=== PATIENT | female | born 1940 | race Caucasian/White ===

== ENCOUNTER 2021-11-15 04:24 | Inpatient (IN) | payer MEDICARE, SELFPAY ==
[2021-11-15] VITALS (34 sets, daily range): BP systolic 105–149; BP diastolic 63–93; PULSE 71–88; RESP 11–28; TEMP 36.3–37.3; O2SAT 79–100
--- NOTE | ~2021-11-15 | XR_ITS ---
EXAMINATION: XR chest 1V portable DATE: 11/15/2021 05:13 INDICATION: Dyspnea. Wheezing. TECHNIQUE: A single frontal view of the chest was obtained. COMPARISON: Chest CT 11/15/2021 FINDINGS: There is a diffuse interstitial pattern in the lungs. There are mild airspace opacities in the mid and lower lung zones. Calcified left lung nodules and calcified left hilar and mediastinal ly mph nodes are consistent with old granulomatous disease. No pleural effusion or pneumothorax. Cardiom egaly is noted. There are surgical clips in right axilla. IMPRESSION: 1. Diffuse lung disease, likely a combination of mild pulmonary edema and atelectasis. 2. Cardiomegaly. Reviewed, dictated and finalized at location A. HEAT CABINET ATTENDANT IMPRESSION: 1. Diffuse lung disease, likely a combination of mild pulmonary edema and atele ctasis. 2. Cardiomegaly.
--- NOTE | ~2021-11-15 | XR_ITS ---
EXAMINATION: XR barium swallow modified EXAM DATE: 11/17/2021 14:10 INDICATION: Aspiration TECHNIQUE: Modified barium esophagram was performed by speech pathologist with radiologist Dr. Eric Marroquin present to administered fluoroscopy. Speech pathologist administered barium in varying consis tencies as per speech pathologist documentation. This was recorded on tape. There was total fluorosc opic time of 1.5 minutes The DAP for this procedure was 1.9 Gycm2. A total of 2 images sent to PAC S from the exam. FINDINGS: Oral stage: Adequate function. Pharyngeal phase: Pyriform residual. Reduced laryngeal elevation.. Laryngeal penetration: Demonstrated. Aspiration: Could not confidently visualized focal cords. Laryngeal sensitivity: Inconsistent. IMPRESSION: Penetration demonstrated, vocal cords not visualized. Please refer to speech pathologist findings and specific feeding recommendations. Reviewed, dictated and finalized at location A. SORTER
--- NOTE | ~2021-11-15 | XR_ITS ---
EXAMINATION: XR barium swallow modified DATE: 11/21/2021 10:43 INDICATION: Dysphagia. TECHNIQUE: The patient was given barium-containing material of multiple consistencies to swallow by t jorge luis speech pathologist while I performed fluoroscopy. Fluoroscopy exposure time was 3.0 minutes. The n umber of fluoroscopy images saved to the PACS was 1. Dose-area product was 2.673 Gy-cm^2. FINDINGS: There was laryngeal penetration of thin liquids via spoon and thickened liquid via straw. IMPRESSION: 1. Laryngeal penetration. 2. Please refer to the speech therapy report for recommendations. Reviewed, dictated and finalized at location A.
--- NOTE | ~2021-11-15 | XR_ITS ---
EXAMINATION: XR sniff test without CXR2V DATE: 11/20/2021 10:21 INDICATION: Right diaphragm weakness. TECHNIQUE: I performed fluoroscopy of the chest while the patient performed from respiration, deep in spiration, and forceful sniffing. The fluoroscopy exposure time was 0.5 minutes. The number of images was 863. COMPARISON: Chest single view 11/15/2021 FINDINGS: There is marked elevation of right hemidiaphragm at rest. There is decreased and delayed mo vement of right hemidiaphragm with respiration when compared to the left. No paradoxical motion. IMPRESSION: 1. Marked elevation of right hemidiaphragm with delayed and decreased movement of right hemidiaphragm when compared to the left. Reviewed, dictated and finalized at location A.
--- NOTE | ~2021-11-15 | XR_ITS ---
EXAMINATION: XR chest 1V portable DATE: 11/18/2021 05:09 INDICATION: Pneumonia. TECHNIQUE: A single frontal view of the chest was obtained. COMPARISON: Chest single view 11/16/2021 FINDINGS: Sensitivity and specificity are decreased by obesity. There is elevation of right hemidiaph ragm. There are airspace opacities in the mid and lower lung zones. No pleural effusion or pneumothor ax. Cardiomegaly is noted. There is a prominent left paracardial fat pad. There are surgical clips in right axilla. IMPRESSION: 1. Airspace opacities in the mid and lower lung zones with worsening on the left, consistent with ate lectasis versus pneumonia. 2. Cardiomegaly. Reviewed, dictated and finalized at location A. TECHNICIAN IMPRESSION: 1. Airspace opacities in the mid and lower lung zones with worsening on the lef t, consistent with atelectasis versus pneumonia. 2. Cardiomegaly.
--- NOTE | ~2021-11-15 | XR_ITS ---
EXAMINATION: XR chest 2V DATE: 11/22/2021 13:38 INDICATION: Congestive heart failure. Shortness of breath. TECHNIQUE: Frontal and lateral views of the chest were obtained. COMPARISON: Chest single view 11/18/2021, CT abdomen and pelvis 11/16/2021 FINDINGS: There is mild atelectasis at left lung base. No pleural effusion or pneumothorax. Cardiomeg pedro is noted. There are surgical clips in right axilla. IMPRESSION: 1. Mild atelectasis at left lung base. 2. Cardiomegaly. Reviewed, dictated and finalized at location A.
--- NOTE | ~2021-11-15 | CT_ITS ---
EXAMINATION: CT brain wo con INDICATION: Seizure COMPARISON: 11/15/2021 TECHNIQUE: Standard unenhanced head CT. The dose-length product (DLP) was 605.33 mGy-cm. The mA was a djusted according to patient size. Iterative reconstruction technique was employed. FINDINGS: There is no acute intraparenchymal hemorrhage. No evidence of mass lesion. No evidence of a cute infarction. There is chronic encephalomalacia in the frontal lobes, right greater than left. The re is mild periventricular and subcortical hypodensity probably related to small vessel ischemic dise ase. There is mild prominence of the sulci and ventricles related to cerebral atrophy. Intracranial c alcified cerebral atherosclerosis is noted. There are no extra-axial collections. There is no mass ef fect or midline shift. Changes in the globes are likely from ocular lens surgery. The visualized sinu ses and mastoid air cells are well aerated. Changes of suboccipital craniotomy are again noted. IMPRESSION: 1. No acute intracranial abnormality. 2. Age related findings. 3. Unchanged chronic encephalomalacia of the frontal lobes. Reviewed, dictated and finalized at location B. NT FINISHER
--- NOTE | ~2021-11-15 | CT_ITS ---
EXAMINATION: CTA chest PE protocol DATE: 11/15/2021 05:59 INDICATION: COVID-19 pneumonia. TECHNIQUE: Computed tomography angiography (CTA) of the chest was performed with 100 mL Omnipaque-350 intravenous contrast timed to evaluate the pulmonary arteries. Coronal maximum intensity projection 3D-reconstructions were created by the technologist. Automated exposure control and iterative reconst ruction technique were employed. The dose-length product was 898.57 mGy-cm. COMPARISON: None. FINDINGS: The lung volumes are small. There is a diffuse interstitial pattern in the lungs. There are airspace opacities involving all lobes with a posterior predominance with volume loss. There is muco us plugging in right lower lobe. Calcified left lung nodules and calcified left hilar and mediastinal lymph nodes are consistent with old granulomatous disease. There are small pleural effusions. Cardio megaly is noted. There are coronary artery calcifications. No pericardial effusion. There is no pulmo nary embolus. There is enlargement of the central pulmonary arteries, consistent with pulmonary arter ial hypertension. Calcifications in the spleen are consistent with old granulomatous disease. There i s severe thoracic spondylosis. IMPRESSION: 1. No pulmonary embolus. 2. Diffuse lung disease, likely a combination of mild pulmonary edema and atelectasis. 3. Small pleural effusions. 4. Cardiomegaly. Reviewed, dictated and finalized at location A. UNTING CONSULTANT IMPRESSION: 1. No pulmonary embolus. 2. Diffuse lung disease, likely a combination of mild pulmonary edema and atele ctasis. 3. Small pleural effusions. 4. Cardiomegaly.
--- NOTE | ~2021-11-15 | XR_ITS ---
EXAMINATION: XR chest 1V portable DATE: 11/16/2021 05:27 INDICATION: Hypercapnic respiratory failure. TECHNIQUE: A single frontal view of the chest was obtained. COMPARISON: Chest single view 11/15/2021, chest CT 11/15/2021 FINDINGS: There is mild atelectasis in the lower lung zones. A calcified left lung nodule and calcifi ed left hilar lymph nodes are consistent with old granulomatous disease. There is a diffuse interstit ial pattern, consistent with mild pulmonary edema. No pleural effusion or pneumothorax. Cardiomegaly is noted. There are surgical clips in right axilla. IMPRESSION: 1. Mild pulmonary edema. 2. Mild atelectasis in the lower lung zones. 3. Cardiomegaly. Reviewed, dictated and finalized at location A. ANICAL ARTIST
--- NOTE | ~2021-11-15 | CT_ITS ---
EXAMINATION: CT abdomen pelvis wo con DATE: 11/16/2021 08:59 INDICATION: Abdominal pain TECHNIQUE: Computed tomography (CT) of the abdomen and pelvis was performed without intravenous contr ast. The dose-length product (DLP) was 1461.82 mGy-cm. Automated exposure control and iterative recon struction technique were employed. COMPARISON: None FINDINGS: There are small pleural effusions. Cardiomegaly is noted. There is dependent atelectasis of the visualized lung bases. Punctate calcifications in an otherwise normal spleen likely represent he aled granulomatous disease. Surgical changes are noted in the lateral aspect of the right breast. A c alcified left breast mass likely represents a fibroadenoma. The liver, pancreas, and adrenal glands a re normal. There is excreted contrast in the nondistended gallbladder. A small amount of contrast fro m yesterday's PE protocol examination is seen in the urinary tract. The bladder is decompressed by Fo jennifer catheter. There is a 2.5 cm cyst of the left kidney. The right kidney is unremarkable. There is c alcified atherosclerosis of the aorta and many of the other arteries. Colonic diverticulosis is noted . There is subtle fat stranding adjacent to the sigmoid colon. A fat-containing umbilical hernia is n oted. The uterus is enlarged containing multiple calcified fibroids. There is severe lower thoracic a nd lumbar spondylosis. IMPRESSION: 1. Diverticulosis with possible mild sigmoid diverticulitis. 2. Small pleural effusions with atelectasis in the lower lobes. 3. Cardiomegaly. Reviewed, dictated and finalized at location B. RIOR DESIGN FACULTY MEMBER
--- NOTE | ~2021-11-15 | US_ITS ---
EXAMINATION: US venous doppler [facility] DATE: 11/16/2021 14:45 INDICATION: Left lower abdominal pain. TECHNIQUE: Grayscale ultrasound images without and with compression and Doppler ultrasound images of the bilateral lower extremity veins were obtained. COMPARISON: None. FINDINGS: The visualized portions of right common femoral vein, profunda (deep) femoral vein, femoral vein, pop liteal vein, peroneal veins, posterior tibial veins, and greater saphenous vein outflow are patent. The visualized portions of left common femoral vein, profunda femoral vein, femoral vein, popliteal v ein, peroneal veins, posterior tibial veins, and greater saphenous vein outflow are patent. IMPRESSION: 1. No deep venous thrombosis. Reviewed, dictated and finalized at location A. AR REPAIRER
--- NOTE | ~2021-11-15 | CT_ITS ---
EXAMINATION: CT brain wo con DATE: 11/15/2021 05:59 INDICATION: Confusion. TECHNIQUE: Computed tomography (CT) of the head was performed without intravenous contrast. The mA wa s adjusted according to patient size. Iterative reconstruction technique was employed. The dose-lengt h product was 681.00 mGy-cm. COMPARISON: None FINDINGS: There is chronic encephalomalacia in the frontal lobes, right worse than left. There are sc attered areas of low attenuation in the cerebral white matter. There is no intracranial hemorrhage, a cute infarction, or abnormal intracranial mass lesion. The ventricles are normal in size. There are l ikely changes of ocular lens replacement surgeries. There are changes of suboccipital craniotomy. The mastoid air cells are normal. There is mild mucosal thickening in the paranasal sinuses. IMPRESSION: 1. Chronic encephalomalacia in the frontal lobes, right worse than left. 2. Moderate nonspecific cerebral white matter disease, which likely represents chronic small vessel i schemic disease. Reviewed, dictated and finalized at location A. RN AND CONTEMPORARY ART CURATOR IMPRESSION: 1. Chronic encephalomalacia in the frontal lobes, right worse than left. 2. Moderate nonspecific cerebral white matter disease, which likely represents chronic small vessel ischemic disease.
--- NOTE | 2021-11-15 04:30 | ECG_ITS ---
Measurements Intervals [place] Rate: 83 P: 9 OR: 185 QRS: 40 QRSD: 86 T: 28 QT: 345 QTc: 407 Interpretive Statements SINUS RHYTHM LOW QRS VOLTAGE IN PRECORDIAL LEADS [QRS DEFLECTION < 1.0 mV IN CHEST LEADS] BORDERLINE ECG NO PREVIOUS ECG AVAILABLE FOR COMPARISON Electronically Signed On 11-15-2021 13:16:11 WASH BARREL LEADER by Lj Donovan M.D.
--- NOTE | 2021-11-15 04:33 | ED.SOB ---
HPI - SOB/Dyspnea General Chief Complaint: Shortness of Breath/Dyspnea Stated Complaint: diff breathing, gen weakness, glf 80% RA Source: patient, EMS and RN notes reviewed Mode of arrival: EMS Limitations: no limitations History of Present Illness HPI Narrative: This is a 81 year old female with history of COPD, hypertension, hyperlipidemia who presents from [facility] for evaluation of shortness of breath. EMS reports patient was too weak to get out bed tonight, and she slid out of her bed onto floor. Patient denies hitting her head or headache or LOC. Patient was found by staff having difficulty breathing, and her oxygen saturation was 72 % on room air by staff. PAtient was placed on 3 L NC and given solumedrol 125 mg with albuterol neb treatment. Patient states she has been having trouble breathing for while and she has cough productive with clear phlegm. Patient denies fever, nausea, vomiting, chest pain or abdominal pain. It has been reported that patient was diagnosed with COVID1 month ago. Related Data Home Medications Medication Instructions Recorded Confirmed Fleet Enema 1 applic DAILY PRN 11/15/21 11/15/21 acetaminophen 500 mg PO Q8H PRN 11/15/21 11/15/21 amlodipine 5 mg PO DAILY 11/15/21 11/15/21 aspirin [Adult Aspirin EC Low 81 mg PO DAILY 11/15/21 11/15/21 Strength] atorvastatin [Lipitor] 10 mg PO HS 11/15/21 11/15/21 bisacodyl 10 mg RECTAL DAILY PRN 11/15/21 11/15/21 calcium carbonate-vitamin D3 1 tablet PO DAILY 11/15/21 11/15/21 cholecalciferol (vitamin D3) 5,000 unit PO DAILY 11/15/21 11/15/21 levothyroxine 150 mcg PO DAILY 11/15/21 11/15/21 lisinopril 10 mg PO DAILY 11/15/21 11/15/21 magnesium hydroxide [Milk of 30 ml PO HS PRN 11/15/21 11/15/21 Magnesia] metoprolol succinate 50 mg PO DAILY 11/15/21 11/15/21 mirabegron [Myrbetriq] 25 mg PO DAILY 11/15/21 11/15/21 polyethylene glycol 17 g PO DAILY 11/15/21 11/15/21 saliva substitute combo no.9 15 ml MUCOUS MEMBRANE QID 11/15/21 11/15/21 [Biotene Dry Mouth Oral Rinse] tamsulosin [Flomax] 0.4 mg PO DAILY 11/15/21 11/15/21 Allergies Allergy/AdvReac Type Severity Reaction Status Date / Time codeine Allergy Unknown Verified 11/15/21 14:46 Review of Systems Review of Systems: All systems reviewed & are unremarkable except as noted in HPI and below PMFSH Past Medical History Medical History (Updated 11/15/21 @ 10:30 by Brendan Barnett MD) Breast cancer Right breast Dysphagia Emphysema/COPD GERD (gastroesophageal reflux disease) History of CVA (cerebrovascular accident) 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 She states she is lifelong nonsmoker. . DNR status. Aaron Hernandez, son, listed as Emergency Contact . Dr Salmon listed as the PCP. Smoking status: Unknown if ever smoked Alcohol intake: unknown Substance use: unknown Spiritual care concerns: No Exam Const: General: alert Other: oriented to person and age Eyes: EOM: EOMs intact bilaterally Chest: Chest palpation & inspection: normal inspection of the chest Resp: Effort & Inspection: tachypneic Auscultation: wheezes (Diffuse ex) expiratory wheezes Cardio: Rate: regular rate Rhythm: regular rhythm Heart sounds: no murmurs GI: GI Palp: Yes Soft to palpation, No Tenderness to palpation present (GI) and No Guarding due to palpation present (GI) Auscultation: normal bowel sounds Skin: General skin exam: normal color N
[2021-11-15 04:41] LABS: Basophils Percent Auto 0.3 % (0.2-1.2); Eosinophils Absolute Auto 0.2 K/mm3 (0-0.3); Eosinophils Percent Auto 1.7 % (0-4.4); Hematocrit 32.9 % (37.0-47.0); Hemoglobin 9.2 g/dL (12.0-15.0); Immature Granulocyte Absolute 0.08 K/mm3 (0.00-0.031); Immature Granulocyte Percent A 0.9 % (0-0.5); Lymphocytes Absolute Auto 1.03 K/mm3 (0.9-3.2); Mean Corpuscular Hemoglobin 26.1 pg (26-34); Mean Corpuscular Volume 93.2 fl (80-100); Mean Platelet Volume 8.3 fl (7.4-10.4); Monocytes Absolute Auto 1.2 K/mm3 (0.1-0.6); Monocytes Percent Auto 14.1 % (2.6-8.5); Neutrophils Absolute Auto 6.1 K/mm3 (1.3-6.7); Nucleated Red Blood Cells Perc 0.2 % (0.0-0.2); Platelet Count Result 458 k/mm3 (150-375); Red Blood Count 3.53 M/mm3 (4.2-5.4); Red Cell Distribution Width 19.9 % (11.5-14.5); White Blood Count 8.6 K/mm3 (4.5-10.0)
[2021-11-15] MEDS: IPRATROPIUM BR 0.02% INH SOLN 0.5 MG/2.5 ML VIAL 1 MG INHALATION (04:51)
[2021-11-15] MEDS: ALBUTEROL SULFATE NEB 2.5 MG/0.5 ML INH 10 MG INHALATION (04:51)
[2021-11-15 04:53] LABS: Alanine Aminotransferase 8 U/L (4-35); Albumin Level 3.6 g/dL (3.5-5.1); Alkaline Phosphatase 85 U/L (38-126); Anion Gap 1 mmol/L (8-16); Aspartate Amino Transferase 19 U/L (14-36); Bilirubin,Total 0.3 mg/dL (0.2-1.3); Blood Urea Nitrogen 14 mg/dL (7-17); Carbon Dioxide 36 mmol/L (22-30); Chloride 99 mmol/L (98-107); Estimated CRCL calculation 69 ml/min; Estimated Glomerular Filt Rate > 60; Glucose 102 mg/dL (65-110); Potassium 4.8 mmol/L (3.4-5.0); Sodium 136 mmol/L (137-145)
[2021-11-15 05:02] LABS: Partial Thromboplastin Time 39.2 SECONDS (22.3-36.8)
[2021-11-15 05:04] LABS: NT Pro B Type Natriuretic Pept 559 pg/mL (5-100); Troponin I < 0.012 ng/mL (0.000-0.034)
[2021-11-15 05:05] LABS: Prothrombin Time 12.7 Seconds (11.1-14.7)
[2021-11-15 05:06] LABS: Alveolar/Arterial O2 Gradient 76.4 mmHg; Base Excess ABG 3.1 mEq/l (+/-2.0); Fractional Inspired Oxygen 36 %; HCO3 ABG 31.7 mEq/l (22.0-26.0); Oxygen Content ABG 13.6 %vol (16.0-22.0); Oxygen Saturation ABG 95.8 % (95.0-100.0); PO2 FiO2 Ratio Arterial Blood 2.64 %; Total Hemoglobin 10.2 g/dL (12.0-18.0)
[2021-11-15 05:08] LABS: pH ABG 7.253 (7.350-7.450)
[2021-11-15 05:09] LABS: Device NASAL CANNULA; Modified Allen's Test Pass; PCO2 ABG 73.5 mmHg (35.0-45.0); Site Drawn LEFT RADIAL
--- NOTE | 2021-11-15 05:52 | PC.NURSE ---
Patient returned safely from CT at this time with RN, RT and technical solution architect. Pt stable on BIPAP.
[2021-11-15 06:14] LABS: Add Urine Microscopic? YES; Appearance Urine Clear (Clear); Bilirubin Urine Negative (Negative); Blood Urine Negative (Negative); Color Urine Yellow (Yellow); Glucose Urine UA Negative (Negative); Ketones Urine Negative (Negative); Leukocyte Esterase Ur Negative LEU/UL (Negative); Mucus Urine Rare /lpf; Nitrate Urine Negative (Negative); Protein Urine Negative (Negative); Specific Grav Ur 1.017 (1.001-1.035); Urobilinogen Urine Negative mg/dL (<2.0); WBC Urine 0-3 /hpf
[2021-11-15] MEDS: FUROSEMIDE INJ 40 MG/4 ML VIAL IV PUSH (07:00)
[2021-11-15 07:33] LABS: Alveolar/Arterial O2 Gradient 138.9 mmHg; Base Excess ABG 0.9 mEq/l (+/-2.0); Carboxyhemoglobin 1.2 % THb (0-2.0); Fractional Inspired Oxygen 40 %; HCO3 ABG 29.3 mEq/l (22.0-26.0); Methemoglobin ABG 0.3 %THb (0-1.5); Oxygen Content ABG 12.8 %vol (16.0-22.0); Oxygen Saturation ABG 89.1 % (95.0-100.0); PO2 ABG 66.5 mmHg (80.0-100.0); PO2 FiO2 Ratio Arterial Blood 1.66 %; Reduced Hemoglobin 10.7 %THb (0-5.0); Total Hemoglobin 10.3 g/dL (12.0-18.0)
[2021-11-15 07:34] LABS: pH ABG 7.244 (7.350-7.450)
[2021-11-15 07:35] LABS: Device BIPAP; Modified Allen's Test Pass; Oxyhemoglobin 87.8 % THb (90.0-100.0); PCO2 ABG 69.4 mmHg (35.0-45.0); Site Drawn LEFT RADIAL
[2021-11-15 07:36] LABS: Expiratory Pressure 8 cmH2O; Inspiratory Pressure 16 cmH2O
--- NOTE | 2021-11-15 08:00 | PC.NURSE ---
pt woke up from nap stating she cant be on bipap anymore. states it hurts her abdomen. pts sats dropped to 79% rapidly. placed 6 liters nc. upon talking to pt and informing of risks pt confirms that she does not want intubation. agreeable to be placed back on bipap.
[2021-11-15] MEDS: ALBUTEROL SULFATE NEB 2.5 MG/0.5 ML INH 5 MG INHALATION (08:33)
[2021-11-15] MEDS: IPRATROPIUM BR 0.02% INH SOLN 0.5 MG/2.5 ML VIAL INHALATION ×5 (08:34→23:50)
--- NOTE | 2021-11-15 09:00 | ADMGEN ---
This patient, Brenda Rocha, was admitted to Intensive Care Unit-5. Patient/family oriented to hospital policies and general routines including ID bracelet, bed and alarms, visiting hours, pain management, procedures, bathroom and other care routines, personal items, smoking policy, room service/diet, and visiting hours. Information on how to activate the Rapid Response Team has been discussed. Patient/Family are encouraged to report perceived risks to care and to ask questions if they do not understand what they are told or what they should do.
[2021-11-15] MEDS: methylPREDNISolone SOD SUCC 125 MG VIAL IV PUSH (09:18)
--- NOTE | 2021-11-15 09:19 | WPDCNINT ---
Assessment and Plan Assessment and plan (1) Acute respiratory failure with hypoxia and hypercapnia: Code(s): J96.01 - Acute respiratory failure with hypoxia; J96.02 - Acute respiratory failure with hypercapnia Status: Acute Assessment and Plan: Likely related to pulmonary edema, COPD, CHF -patient received Lasix 40 mg IV x1 in the ER and has had adequate urine output -has been started on Solu-Medrol for COPD exacerbation given hyper gap new on her ABGs -was started on antibiotics with vancomycin and cefepime 11/14/21). Blood cultures have been sent- 11/14: -increased BiPAP settings to 20/8, 40% FiO2. Patient is getting adequate tidal volumes, continue patient on BiPAP for now. Will repeat ABGs at noon -Chest x-ray shows diffuse lung disease likely combination of mild pulmonary edema and atelectasis, cardiomegaly. CTA chest PE protocol: No pulmonary embolism, diffuse lung disease likely combination of mild pulmonary edema and atelectasis, small pleural effusions, cardiomegaly. (2) Acute exacerbation of chronic obstructive airways disease: Code(s): J44.1 - Chronic obstructive pulmonary disease with (acute) exacerbation Status: Acute Assessment and Plan: Continue bronchodilators, will add Pulmicort -continue Solu-Medrol -continue BiPAP - Pulmonology has been consulted - monitor ABGs and mental status (3) Pulmonary edema: Code(s): J81.1 - Chronic pulmonary edema Status: Acute Assessment and Plan: pro BNP 559, Lasix was given (4) Anemia: Code(s): D64.9 - Anemia, unspecified Status: Acute Assessment and Plan: Will continue to monitor Hb (5) Hypothyroidism: Code(s): E03.9 - Hypothyroidism, unspecified Status: Acute Assessment and Plan: continue levothyroxine (6) DVT prophylaxis: Code(s): Z29.9 - Encounter for prophylactic measures, unspecified Status: Acute Assessment and Plan: Lovenox SQ Additional Plan Stress ulcer prophylaxis: Protonix IV Nutrition: NPO for now, will have speech therapy evaluate patient for bedside swallow test before she can eat as she does have a history of dysphagia Code status:DNR Critical care time spent: 48 minutes This dictation may have been done utilizing a voice recognition system. Attempts have been made to correct errors. However, there may be uncorrected grammatical, spelling, and recognition errors present. Due to a high probability of clinically significant, life threatening deterioration, the patient required my highest level of preparedness to intervene emergently and I personally spent this critical care time directly and personally managing the patient. This critical care time included obtaining a history; examining the patient; pulse oximetry; ordering and review of studies; arranging urgent treatment with development of a management plan; evaluation of patient's response to treatment; frequent reassessment; and discussions with other providers. It was exclusive of separately billable procedures and treating other patients and teaching time. Please see Assessment and Plan section and the rest of the note for further information on patient assessment and treatment Paper Slitter Consult Note Consult date: 11/15/21 Time Seen: 08:58 Reason for consult: Respiratory failure, COPD exacerbation HPI: Brenda Rocha is a 81 year old female past history of COPD, emphysema, gastroesophageal reflux disease, hypertension, hyperlipidemia, was tested positive for COVID in September 2021 but was not admitted to the hospital, has received COVID vaccine x2, patient does not use any oxygen at the long term. Patient presented the ED on 11/15/2021 with complains of weakness, shortness of breath, hypoxia. According the records she was too weak to get out of the bed and slid out of her bed onto the floor. Denies any LOC or hitting her head on the floor. Patient was found by the staff having difficulty breathin
[2021-11-15] MEDS: BUDESONIDE RESPULE NEB 0.5 MG/2 ML AMP INHALATION ×2 (09:38→20:03)
--- NOTE | 2021-11-15 09:42 | PM.IMHP ---
H&P: HPI History of Present Illness Date/Time: 11/15/21 09:42 Chief Complaint: Shortness of breath Narrative: 81yo female with COPD and HTN who is brought in from the longterm to the ED for shortness of breath and found to have respiratory failure. She resides at [facility]. She states she does not remember much prior to coming to the hospital. History overall is very difficult to obtain. She provides mostly scotty, one-word answers. She denies cough. She does state that she had a recent diagnosis of COVID but could not tell me when. She does state that she has been vaccinated against COVID with a booster but could not remember her last vaccine. She has a recent chest pain or shortness of breath. She does mention that she has had pedal edema for years and may have increased over the past few weeks. She does mention that she has a history of stroke and CHF. However majority of the history is obtained from the chart. Per EMS notes patient felt well the day prior to admission until she awoke around 1AM on the day of admission. At that time, she tried to get up to void but was unable to get out of bed and slid to the floor. She was short of breath. No head injury or LOC. Staff was called and patient was noted to have SpO2 in the 80s. Oxygen was placed and EMS was contacted. On EMS evaluation, patient was noted to have labored breathing. Vital signs were stable otherwise. She was noted to be wheezing. Albuterol was given as well as Solu-Medrol. She had symptomatic improvement. Patient was brought to the ED for evaluation. In the ED respiratory was 26 SpO2 was 79. Troponins negative. BNP was 560. ABG showed 7.25/74/95 on 4 L. BiPAP was started. She was anemic with a hemoglobin of 9.2. CT of the brain showed chronic encephalomalacia in the frontal lobes right worse than left but no acute findings. Chest x-ray showed diffuse lung disease like a combination of edema and atelectasis. CTA of the chest showed no PE but did show again diffuse lung disease consistent with edema and atelectasis. Patient was treated with nebulizer treatments, IV Lasix, steroids and broad-spectrum antibiotics. She was admitted to ICU for further care. Repeat blood gas shows no significant change so BiPAP settings adjusted. 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 She states she is lifelong nonsmoker. . DNR status. Aaron Hernandez, son, listed as Emergency Contact . Dr Salmon listed as the PCP. Smoking status: Unknown if ever smoked Alcohol intake: unknown Substance use: unknown Spiritual care concerns: No Meds Home Medications and Allergies Home Medications Medication Instructions Recorded Confirmed Type Fleet Enema 1 applic DAILY PRN 11/15/21 11/15/21 History acetaminophen 500 mg PO Q8H PRN 11/15/21 11/15/21 History amlodipine 5 mg PO DAILY 11/15/21 11/15/21 History aspirin [Adult Aspirin EC Low 81 mg PO DAILY 11/15/21 11/15/21 History Strength] atorvastatin [Lipitor] 10 mg PO HS 11/15/21 11/15/21 History bisacodyl 10 mg RECTAL DAILY PRN 11/15/21 11/15/21 History oswaldo
--- NOTE | 2021-11-15 12:13 | PM.CNPUL ---
Assessment and Plan Assessment and plan (1) Acute respiratory failure with hypoxia and hypercapnia: Code(s): J96.01 - Acute respiratory failure with hypoxia; J96.02 - Acute respiratory failure with hypercapnia Status: Acute Assessment and Plan: Patient carries a diagnosis of congestive heart failure, COPD and she is a former tobacco user at 49 pack years quit 10 years ago with no bullous emphysema on her CT angiogram of the chest this admission, and is currently being treated for pneumonia, COPD exacerbation and fluid overload. Her COVID tested influenza swab are pending. Blood and urine cultures are pending. Rregarding her fluid overload patient is given Lasix 40 mg IV and will monitor her ins and outs. Echocardiogram has been ordered Regarding her COPD exacerbation patient is on Solu-Medrol 60 q.6, albuterol 2.5 mg nebs q.4 hours, ipratropium 0.5 mg nebs q.4 hours and BiPAP 30/04 (managed by directory carrier). A repeat blood gas on the settings is pending. There is some evidence of acute on chronic hypercarbic respiratory failure with her 1st blood gas being 7.25/74 with a serum bicarbonate of 36. Of note she had a serum bicarbonate on 08/31/2021 which was 30. She has no eosinophilia. I will reassess her for chronic hypercarbic respiratory failure after she is treated for fluid overload, COPD exacerbation and pneumonia. She may require nocturnal noninvasive ventilation. Regarding pneumonia patient is on vancomycin and cefepime which were started on 11/15. discussed with Dr. Altamirano will follow with you. History of Present Illness History of Present Illness Consult date: 11/15/21 Requesting physician: Shane Altamirano MD Reason for consult: COPD Chief complaint: Acute respiratory failure w hypoxia and hypercapne Narrative: 11/15/2021: This is a new pulmonary consult for COPD exacerbation. 81-year-old with a history of hypertension, hyperlipidemia, CVA, congestive heart failure, COPD who quit smoking 10 years ago and is not on any COPD medicines presented to the emergency department at [facility] on 3 9 after she was weak and slid out of her bed at [facility]. Patient was found to be hypoxemic with low saturations and brought to the emergency department. Patient is currently on BiPAP and is difficult to get an accurate history given the BiPAP in her mental status. The note states that she was in her usual state of health without any respiratory issues. To me she does say she did not have fever, cough, chills, rigors, change in phlegm production or hemoptysis. In the emergency department she was found to have a white blood cell ount of 8.6, esinophis 1.7% equals 146 per micro L, creatinine 0.7, BNP was 559, ABG 7.25/ 74/95 on 4 L nasal cannula, serum bicarbonate 36. Of note serum bicarbonate was 30 on 08/31/2021 with a white blood cell count of 6.6 and eosinophils 2.7% equal 178 per micro L. patient had a CT angiogram of the chest that demonstrated no pulmonary embolism, diffuse lung disease with congestion and small pleural effusions, cardiomegaly. Patient was treated for COPD exacerbation, healthcare associated pneumonia and fluid overload with BiPAP, Solu-Medrol, bronchodilators, vancomycin and cefepime, and IV Lasix. repeat blood gas on BiPAP 24/04 was 7.24/70/67. Patient did states she smokes cigarettes from age 22-10 years ago at 1 pack per day for 49 pack years. 11/15/2021: Patient is currently in the ICU on BiPAP rate of 10, breathing 18, pressures 22/8 and 40% FiO2 with tidal volume 470 and saturations 99%. Patient is awake and following some simple commands for example she shows me 2 fingers with her right hand but when I asked her to show me 2 fingers on the left hand she raises up 3 fingers. She does wiggle her toes. She denies any current pain. DATA: EXAMINATION: CTA chest PE protocol DATE: 11/15/2021 05:59 INDICATION: COVID-19 pneumonia. TE
[2021-11-15 13:17] LABS: Base Excess ABG 2.6 mEq/l (+/-2.0); Fractional Inspired Oxygen 40 %; HCO3 ABG 29.9 mEq/l (22.0-26.0); Oxygen Content ABG 14.7 %vol (16.0-22.0); Oxygen Saturation ABG 98.8 % (95.0-100.0); Oxyhemoglobin 97.2 % THb (90.0-100.0); PO2 ABG 157.1 mmHg (80.0-100.0); PO2 FiO2 Ratio Arterial Blood 3.93 %; Total Hemoglobin 10.5 g/dL (12.0-18.0); pH ABG 7.308 (7.350-7.450)
[2021-11-15 13:19] LABS: Device BIPAP; Modified Allen's Test Pass; Site Drawn LEFT RADIAL
[2021-11-15 13:20] LABS: Expiratory Pressure 8 cmH2O; Inspiratory Pressure 22 cmH2O
[2021-11-15] MEDS: ALBUTEROL SULFATE NEB 2.5 MG/0.5 ML INH INHALATION ×4 (13:27→23:50)
[2021-11-15 14:34] LABS: Influenza A QL RT-PCR Negative (Negative); Influenza B QL RT-PCR Negative (Negative); SARS-CoV-2 RNA PCR Negative
[2021-11-15] MEDS: methylPREDNISolone SOD SUCC 125 MG VIAL 60 MG IV PUSH ×3 (14:49→23:47)
[2021-11-15 17:08] LABS: Glucose Point of Care 170 mg/dl (65-105)
[2021-11-16] VITALS (28 sets, daily range): BP systolic 89–119; BP diastolic 56–75; PULSE 78–138; RESP 10–30; TEMP 36.3–37.1; O2SAT 95–100
[2021-11-16 00:02] LABS: Glucose Point of Care 144 mg/dl (65-105)
--- NOTE | 2021-11-16 03:03 | ECG_ITS ---
Measurements Intervals [place] Rate: 128 P: NV: 0 QRS: 63 QRSD: 91 T: -9 QT: 306 QTc: 447 Interpretive Statements ATRIAL FIBRILLATION WITH RAPID VENTRICULAR RESPONSE LOW QRS VOLTAGE IN PRECORDIAL LEADS [QRS DEFLECTION < 1.0 mV IN CHEST LEADS] BASELINE ARTIFACT IN V6 ABNORMAL ECG COMPARED TO ECG 11/15/2021 04:32:14 ATRIAL FIBRILLATION NOW PRESENT Electronically Signed On 11-16-2021 13:58:14 HARNESS MENDER by Lj Donovan M.D.
--- NOTE | 2021-11-16 03:09 | PC.NURSE ---
Patient noted to be shaking in her bed via the camera and artifact on the monitor. I went to the patients room and she was jerking her right arm and leg in the bed and was unresponsive. We turned her oxygen to 100% and the seizure lasted 1 minute and the patient went into a-fib RVR. We got an EKG per Dr. William and will start Keppra IV. We will continue to monitor pt closely.
[2021-11-16] MEDS: levETIRAcetam 1000MG/NACL100ML 1,000 MG/100 ML BAG 400 MG IVPB (03:16)
[2021-11-16] MEDS: IPRATROPIUM BR 0.02% INH SOLN 0.5 MG/2.5 ML VIAL INHALATION ×4 (03:45→20:51)
[2021-11-16] MEDS: ALBUTEROL SULFATE NEB 2.5 MG/0.5 ML INH INHALATION ×3 (03:45→12:53)
[2021-11-16 04:15] LABS: Basophils Percent Auto 0.4 % (0.2-1.2); Hematocrit 38.6 % (37.0-47.0); Hemoglobin 10.6 g/dL (12.0-15.0); Immature Granulocyte Absolute 0.54 K/mm3 (0.00-0.031); Immature Granulocyte Percent A 4.9 % (0-0.5); Lymphocytes Absolute Auto 0.54 K/mm3 (0.9-3.2); Lymphocytes Percent Auto 4.9 % (18.3-44.2); Mean Corpuscular HGB Conc 27.5 g/dl (32-36); Mean Corpuscular Hemoglobin 26.6 pg (26-34); Mean Corpuscular Volume 96.7 fl (80-100); Mean Platelet Volume 8.1 fl (7.4-10.4); Monocytes Absolute Auto 0.4 K/mm3 (0.1-0.6); Monocytes Percent Auto 3.7 % (2.6-8.5); Neutrophils Absolute Auto 9.4 K/mm3 (1.3-6.7); Neutrophils Percent Auto 86.1 % (45.5-73.1); Platelet Count Result 513 k/mm3 (150-375); Red Blood Count 3.99 M/mm3 (4.2-5.4); Red Cell Distribution Width 19.4 % (11.5-14.5); White Blood Count 10.9 K/mm3 (4.5-10.0)
[2021-11-16 04:26] LABS: Alanine Aminotransferase 10 U/L (4-35); Albumin Level 3.8 g/dL (3.5-5.1); Alkaline Phosphatase 84 U/L (38-126); Anion Gap 4 mmol/L (8-16); Aspartate Amino Transferase 17 U/L (14-36); Bilirubin,Total 0.2 mg/dL (0.2-1.3); Blood Urea Nitrogen 17 mg/dL (7-17); Calcium 8.1 mg/dL (8.4-10.2); Carbon Dioxide 35 mmol/L (22-30); Chloride 100 mmol/L (98-107); Estimated CRCL calculation 80 ml/min; Estimated Glomerular Filt Rate > 60; Glucose 201 mg/dL (65-110); Magnesium 2.3 mg/dL (1.6-2.3); Phosphorus 6.4 mg/dL (2.5-4.5); Sodium 139 mmol/L (137-145)
[2021-11-16 04:50] LABS: Base Excess ABG 0.9 mEq/l (+/-2.0); Carboxyhemoglobin 0.8 % THb (0-2.0); Fractional Inspired Oxygen 40 %; HCO3 ABG 31.7 mEq/l (22.0-26.0); Oxygen Content ABG 14.5 %vol (16.0-22.0); Oxygen Saturation ABG 91.9 % (95.0-100.0); Oxyhemoglobin 93.1 % THb (90.0-100.0); PO2 ABG 82.4 mmHg (80.0-100.0); PO2 FiO2 Ratio Arterial Blood 2.06 %; Reduced Hemoglobin 6.1 %THb (0-5.0)
[2021-11-16 04:52] LABS: PCO2 ABG 92.9 mmHg (35.0-45.0); pH ABG 7.151 (7.350-7.450)
[2021-11-16 04:53] LABS: Device NON-INVASIVE VENT; Modified Allen's Test Pass; Non-Invasive Vent Rate 10 /MIN; Site Drawn RIGHT RADIAL
[2021-11-16 04:54] LABS: Non-Invasive Expiratory Pressure 8 CMH2O; Non-Invasive Inspiratory Pressure 22 CMH2O
[2021-11-16 05:14] LABS: Iron 23 ug/dL (37-170)
[2021-11-16 05:24] LABS: Percent Iron Saturation 9 % (20-50)
[2021-11-16 05:31] LABS: Folic Acid 10.4 ng/mL (2.76->20)
[2021-11-16] MEDS: methylPREDNISolone SOD SUCC 125 MG VIAL 60 MG IV PUSH (05:39)
--- NOTE | 2021-11-16 06:00 | ECHO_ITS ---
Patient Info Name: Brenda Rocha Age: 81 years : 1940 Gender: Female Ht: 67 in Wt: 227 lbs BSA: 2.25 m2 HR: 108 bpm BP: 101 / 65 mmHg Heart Rhythm: Atrial Fibrillation Technical Quality: Fair Exam Date: 11/16/2021 10:22 AM Exam Location: [facility] Pulmonary Exam Room: ICU5 Patient Status: Inpatient Admit Date: 11/15/2021 Staff Ordering Physician: Francia Muse MD [employer] Solution Architect: Janette Orellana RDCS Attending Provider: Betsy Hull DO Referring Physician: Micha STEVENSON; Exam Type: CA echo doppler color flow Study Info Indications - CHF Complete two-dimensional, color flow and Doppler transthoracic echocardiogram is performed with contrast to opacify the left ventricle and to improve the deliniation of the left ventricle endocardial borders. Contrast/Agitated Saline Contrast/Ag. Saline: Definity Amount: 2.00 ml Administered By: Janette Orellana [facility] Existing IV Access: Yes Summary 1. Left ventricular chamber dimension is normal. 2. Left ventricular systolic function is normal, estimated at 65-70%. 3. There is moderately increased left ventricular wall thickness. 4. The left ventricular diastolic function is indeterminate. 5. Technically difficult study with limited views. 6. Left atrial chamber dimension is moderately enlarged. 7. Right atrial chamber dimension is severely enlarged. 8. There is trace mitral valve regurgitation. 9. There is mild tricuspid valve regurgitation. 10. No pulmonary hypertension, estimated pulmonary arterial systolic pressure is 33 mmHg. Left Ventricle Left ventricular chamber dimension is normal. Left ventricular systolic function is normal, estimated at 65-70%. There is moderately increased left ventricular wall thickness. The left ventricular diastolic function is indeterminate. Technically difficult study with limited views. Right Ventricle Right ventricular chamber dimension is normal. Right ventricular systolic function is normal. Left Atria Left atrial chamber dimension is moderately enlarged. Right Atria Right atrial chamber dimension is severely enlarged. Aortic Valve The aortic valve is trileaflet. There is no aortic valve stenosis. There is mild aortic valve calcification. Pulmonic Valve The pulmonic valve is not well visualized. There is trace pulmonic regurgitation. Mitral Valve The mitral valve has thickened leaflets. There is trace mitral valve regurgitation. The mitral valve annulus is mildly calcified. Tricuspid Valve The tricuspid valve leaflets are normal. There is mild tricuspid valve regurgitation. No pulmonary hypertension, estimated pulmonary arterial systolic pressure is 33 mmHg. Pericardium/Pleural The pericardium appears normal. There is trivial pericardial effusion. Inferior Vena Cava Normal inferior vena cava with <50% collapse upon inspiration consistent with elevated right atrial pressure, 10 mmHg. Aorta The aortic root size at the sinus of Valsalva is normal. There is mild aortic atherosclerosis. Left Ventricular Outflow Tract Name Value Normal LVOT 2D LVOT Diameter 2.0 cm LVOT Doppler ----
--- NOTE | 2021-11-16 08:15 | WPDINTPN ---
Progress Note: A&P Assessment and Plan (1) Atrial fibrillation: Code(s): I48.91 - Unspecified atrial fibrillation Status: Acute Assessment and Plan: Post seizure activity patient went to AFib RVR with heart rates in the 130s. This morning heart rate sent down to 90-110 -seems to be new onset AFib as patient does not have a history -will obtain CT scan of the brain -will start anticoagulation after CT scan of the brain has been obtained and resulted (2) Seizure: Code(s): R56.9 - Unspecified convulsions Status: Acute Assessment and Plan: Patient had a seizure neurology technologist at around 02/30 a.m. on 11/16/2021 -patient was postictal trach, less responsive -was loaded with Keppra -will start Keppra 500 mg IV q.12 hours -11/15/2021 CT of the brain: Chronic encephalomalacia in the frontal lobes, right worse than left.2. Moderate nonspecific cerebral white matter disease, which likely represents chronic small vessel ischemic disease. -the frontal chronic encephalomalacia could be the foci for seizures, -neurology has been consulted (3) Acute respiratory failure with hypoxia and hypercapnia: Code(s): J96.01 - Acute respiratory failure with hypoxia; J96.02 - Acute respiratory failure with hypercapnia Status: Acute Assessment and Plan: Likely related to pulmonary edema, COPD, CHF -patient received Lasix 40 mg IV x1 in the ER and has had adequate urine output -has been started on Solu-Medrol for COPD exacerbation given hyper gap new on her ABGs -was started on antibiotics with vancomycin and cefepime 11/14/21). -11/15: Blood cultures : Preliminary result is negative so far x2 -11/15 urine cultures pending -ABGs early this morning post seizure activity showed a pH of 7.15 and pCO2 of 92, PO2 of 82 on 40% FiO2. Have increased the IPAP to 24, EPAP to 8. Increase the I to E ratio on the BiPAP. -will repeat ABGs -SARS-CoV-2 PCR, influenza A and B are negative -11/15 Chest x-ray: Mild pulmonary edema, mild atelectasis in the lower lung zones, cardiomegaly. (4) Acute exacerbation of chronic obstructive airways disease: Code(s): J44.1 - Chronic obstructive pulmonary disease with (acute) exacerbation Status: Acute Assessment and Plan: Continue bronchodilators, will add Pulmicort -will decrease methylprednisolone to 40 q.6 hoursl -continue BiPAP -appreciate pulmonary evaluation recommendation - monitor ABGs and mental status (5) Pulmonary edema: Code(s): J81.1 - Chronic pulmonary edema Status: Acute Assessment and Plan: pro BNP 559, Lasix was given -urine output has been adequate, she is in negative fluid balance (6) Anemia: Code(s): D64.9 - Anemia, unspecified Status: Acute Assessment and Plan: Will continue to monitor Hb (7) Hypothyroidism: Code(s): E03.9 - Hypothyroidism, unspecified Status: Acute Assessment and Plan: continue levothyroxine (8) DVT prophylaxis: Code(s): Z29.9 - Encounter for prophylactic measures, unspecified Status: Acute Assessment and Plan: Lovenox SQ Additional Plan Stress ulcer prophylaxis: Protonix IV Nutrition: NPO for now, will have speech therapy evaluate patient for bedside swallow test before she can eat as she does have a history of dysphagia Code status:DNR Critical care time spent: 36 minutes This dictation may have been done utilizing a voice recognition system. Attempts have been made to correct errors. However, there may be uncorrected grammatical, spelling, and recognition errors present. Due to a high probability of clinically significant, life threatening deterioration, the patient required my highest level of preparedness to intervene emergently and I personally spent this critical care time directly and personally managing the patient. This critical care time included obtaining a history; examining the patient; pulse oximetry; ordering and review of
[2021-11-16] MEDS: BUDESONIDE RESPULE NEB 0.5 MG/2 ML AMP INHALATION ×2 (08:20→20:51)
[2021-11-16 08:40] LABS: Glucose Point of Care 206 mg/dl (65-105)
[2021-11-16] MEDS: PANTOPRAZOLE SODIUM IV 40 MG VIAL IV PUSH (09:34)
[2021-11-16] MEDS: levETIRAcetam 500MG/NACL 100ML 500 MG/100 ML BAG 400 MG IVPB ×2 (09:34→21:11)
[2021-11-16] MEDS: CYANOCOBALAMIN INJ 1,000 MCG/ML VIAL 1000 MCG IM (09:34)
--- NOTE | 2021-11-16 09:53 | PM.PNPUL ---
Progress Note: A&P Assessment and Plan (1) Acute respiratory failure with hypoxia and hypercapnia: Code(s): J96.01 - Acute respiratory failure with hypoxia; J96.02 - Acute respiratory failure with hypercapnia Status: Acute Assessment and Plan: 11/15 Patient carries a diagnosis of congestive heart failure, COPD and she is a former tobacco user at 49 pack years quit 10 years ago with no bullous emphysema on her CT angiogram of the chest this admission, and is currently being treated for pneumonia, COPD exacerbation and fluid overload. Her COVID tested influenza swab are pending. Blood and urine cultures are pending. Regarding her fluid overload patient is given Lasix 40 mg IV and will monitor her ins and outs. Echocardiogram has been ordered Regarding her COPD exacerbation patient is on Solu-Medrol 60 q.6, albuterol 2.5 mg nebs q.4 hours, ipratropium 0.5 mg nebs q.4 hours and BiPAP / (managed by government program manager). A repeat blood gas on the settings is pending. There is some evidence of acute on chronic hypercarbic respiratory failure with her 1st blood gas being 7.25/74 with a serum bicarbonate of 36. Of note she had a serum bicarbonate on 08/31/2021 which was 30. She has no eosinophilia. I will reassess her for chronic hypercarbic respiratory failure after she is treated for fluid overload, COPD exacerbation and pneumonia. She may require nocturnal noninvasive ventilation. Regarding pneumonia patient is on vancomycin and cefepime which were started on 11/15. 11/16 Patient had a seizure last night and in retrospect this may have had a seizure at her [place] [facility] that brought her into the hospital as by report she was in her usual state of health and had an acute deterioration. Patient has a smoking history and is labeled as COPD although she is on no inhaled medicines and she has no emphysematous changes on her CT scan of the chest. . I have no PFTs. I am not convinced she had a COPD exacerbation this hospitalization and I would recommend aggressive taper of steroids to off after 5 days. No wheezes on exam today. Continue albuterol and ipratropium nebulizers q.4 hours scheduled. Continue vancomycin and cefepime which were started on 11/15. She does have acute on chronic hypercarbic respiratory failure and the etiology of that includes possible COPD, aspiration, pneumonia, fluid overload, obstructive sleep apnea and central apnea from additional neurologic conditions. her COVID and flu swab is negative. Cultures are negative. neurology has been consulted and an MRI has been performed. When she is improved will need resting ABG during the day to assess for chronic hypercarbic respiratory failure. Discussed with Drs. Altamirano and Anibal Will follow with you. Subjective Date/time seen: 11/16/21 09:53 Interval history: 11/15/2021: This is a new pulmonary consult for COPD exacerbation. 81-year-old with a history of hypertension, hyperlipidemia, CVA, congestive heart failure, COPD who quit smoking 10 years ago and is not on any COPD medicines presented to the emergency department at [facility] on 3 9 after she was weak and slid out of her bed at [facility]. Patient was found to be hypoxemic with low saturations and brought to the emergency department. Patient is currently on BiPAP and is difficult to get an accurate history given the BiPAP in her mental status. The note states that she was in her usual state of health without any respiratory issues. To me she does say she did not have fever, cough, chills, rigors, change in phlegm production or hemoptysis. In the emergency department she was found to have a white blood cell ount of 8.6, esinophis 1.7% equals 146 per micro L, creatinine 0.7, BNP was 559, ABG 7.25/ 74/95 on 4 L nasal cannula, serum bicarbonate 36. Of note serum bicarbonate was 30 on 08/31/2021 with a white blood cell count of 6.6 and eosinophils 2.7% equal 178 per micro L.
[2021-11-16] MEDS: PERFLUTREN LIPID MICROSPHERES 1.5 ML VIAL DILUTED TO 10 ML TOTAL VOLUME IV PUSH (10:54)
--- NOTE | 2021-11-16 10:54 | IVDEFINITY ---
Prior to administration of IV Definity the patient was educated on the risks and benefits of the imaging enhancing agent including potential adverse side effects. The patient verbalized understanding. Allergies were verified. No exclusion criteria were identified and at least one of the following inclusion criteria were met: 1) physician request, 2) patient technically difficult to image (per the [place] [employer] guidelines of two or more segments not discernable within the apical view), or 3) questionable left ventricular function. ?
[2021-11-16 11:05] LABS: Alveolar/Arterial O2 Gradient 113.7 mmHg; Base Excess ABG 4.4 mEq/l (+/-2.0); Fractional Inspired Oxygen 40 %; Oxygen Content ABG 14.2 %vol (16.0-22.0); Oxygen Saturation ABG 96.5 % (95.0-100.0); PO2 ABG 96.5 mmHg (80.0-100.0); PO2 FiO2 Ratio Arterial Blood 2.41 %; Total Hemoglobin 10.4 g/dL (12.0-18.0); pH ABG 7.309 (7.350-7.450)
[2021-11-16 11:07] LABS: PCO2 ABG 65.2 mmHg (35.0-45.0)
[2021-11-16 11:11] LABS: Device BIPAP; Expiratory Pressure 8 cmH2O; Inspiratory Pressure 24 cmH2O; Modified Allen's Test Pass; Site Drawn LEFT RADIAL
[2021-11-16] MEDS: ENOXAPARIN 100 MG/ML SYRINGE 95 MG SUB-Q ×2 (11:46→21:11)
--- NOTE | 2021-11-16 12:17 | WPDNEURCNPN ---
Assessment and Plan Additional Plan 1 acute respiratory failure 2 chronic encephalomalacia of the frontal lobes 3 Consult date: 11/16/21 HPI: Brenda Rocha is a 81 year old female admitted to the hospital for the complaints of difficulties in breathing in addition to ongoing history of 1. COPD 2. Hypertension. Patient resides as [facility] ([place], [place]). And had difficulties in giving the appropriate answers to the initial physician. She has a recent diagnosis of COVID though she has been vaccinated against reportedly on the day of admission she awoke around 1:00 a.m. was unable to get out of bed and slid to the floor noted Shayna she was short of breath he did not become unconscious did not sustain any head trauma her SpO2 in that time was in 80s he was placed on oxygen EMS were contacted with subsequent improvement of the symptomatology in the ER troponins were negative BNP was 560 and SpO2 over 79 for reason BiPAP was started hemoglobin was 9.2 CT of the brain documented chronic encephalomalacia in the frontal lobe right worse than left but no acute bleed CT of the chest revealed no pulmonary emboli diffuse lung disease for which she was treated with nebulizer IV Lasix and steroids and broad strengthen antibiotic her past history consistent with the breast cancer dysphagia GERD hypertension she has been receiving multiple medications including amlodipine aspirin atorvastatin and initial vital signs otherwise were stable, CT scan documented encephalomalacia in the frontal lobes right more than the left Review of Systems Review of Systems: All systems reviewed & are unremarkable except as noted in HPI and below PMFSH Past Medical History Medical History Breast cancer Right breast Dysphagia Emphysema/COPD GERD (gastroesophageal reflux disease) History of CVA (cerebrovascular accident) Chronic encephalomalacia in the frontal lobes, right worse than left with executive function deficit Hyperlipidemia Hypertension Hypothyroidism Surgical History Surgical History Hx of fracture of femur s/p ORIFF Family History Family History Other Family history unknown Social History Social History Social History: Admitted to [facility] on 08/30/21. She states she is lifelong nonsmoker. . DNR status. Aaron Hernandez, son, listed as Emergency Contact . Dr Salmon listed as the PCP. Smoking status: Unknown if ever smoked Alcohol intake: unknown Substance use: unknown Spiritual care concerns: No Meds Home Medications and Allergies Home Medications Medication Instructions Recorded Confirmed Type Fleet Enema 1 applic DAILY PRN 11/15/21 11/15/21 History acetaminophen 500 mg PO Q8H PRN 11/15/21 11/15/21 History amlodipine 5 mg PO DAILY 11/15/21 11/15/21 History aspirin [Adult Aspirin EC Low 81 mg PO DAILY 11/15/21 11/15/21 History Strength] atorvastatin [Lipitor] 10 mg PO HS 11/15/21 11/15/21 History bisacodyl 10 mg RECTAL DAILY PRN 11/15/21 11/15/21 History calcium carbonate-vitamin D3 1 tablet PO DAILY 11/15/21 11/15/21 History cholecalciferol (vitamin D3) 5,000 unit PO DAILY 11/15/21 11/15/21 History levothyroxine 150 mcg PO DAILY 11/15/21 11/15/21 History lisinopril 10 mg PO DAILY 11/15/21 11/15/21 History magnesium hydroxide [Milk of 30 ml PO HS PRN 11/15/21 11/15/21 History Magnesia] metoprolol succinate 50 mg PO DAILY 11/15/21 11/15/21 History mirabegron [Myrbetriq] 25 mg PO DAILY 11/15/21 11/15/21 History polyethylene glycol 17 g PO DAILY 11/15/21 11/15/21 History saliva substitute combo no.9 15 ml MUCOUS MEMBRANE QID 11/15/21 11/15/21 History [Biotene Dry Mouth Oral Rinse] tamsulosin [Flomax] 0.4 mg PO DAILY 11/15/21 11/15/21 History Allergies Allergy/AdvReac Type Severity Reaction Status Date /
[2021-11-16 12:20] LABS: Glucose Point of Care 146 mg/dl (65-105)
--- NOTE | 2021-11-16 13:41 | PM.IMPN ---
Progress Note: A&P Assessment and Plan (1) Acute respiratory failure with hypoxia and hypercapnia: Code(s): J96.01 - Acute respiratory failure with hypoxia; J96.02 - Acute respiratory failure with hypercapnia Status: Acute Assessment and Plan: Patient has developed acute onset of respiratory failure with hypoxia and hypercapnia. Imaging more likely pulmonary edema. PE ruled out. Unclear if this has been building over the last few days or if more like flash pulmonary edema. Consider aspiration from acid reflux. Consider the development of post-COVID organizing PNA. Consider bacterial PNA and/or COPD exacerbation. ABG noted but patient's BiPAP rate set at 10 and she was not breathing much over this. After adjustment, repeat ABG better. Continue BiPAP. Continue Abx, Solu-Medrol and nebs. Lasix stopped now. Wean as tolerated. Appreciate chopping machine operator input. (2) Seizure: Code(s): R56.9 - Unspecified convulsions Status: Acute Assessment and Plan: Patient had seizure-like activity overnight. Keppra started. Neuro consult. CT brain showing no acute findings. Plan for EEG. (3) Atrial fibrillation: Code(s): I48.91 - Unspecified atrial fibrillation Status: Acute Assessment and Plan: Tele showig AFib. EKG confirms this. No hx of this in the notes. Was on metoprolol on admission but held due to soft blood pressure. Unclear why she went into AFib. Echo showing EF 65-70% with indeterminate diastolic function and biatrial enlargement. May have intermittent, unrecognized AFib given the Echo findings. Consider PE but admission CTA chest negative for PE. Check LE dopplers. Check TSH. Change to Xopenex. (4) Acute exacerbation of chronic obstructive airways disease: Code(s): J44.1 - Chronic obstructive pulmonary disease with (acute) exacerbation Status: Acute Assessment and Plan: Patient with COPD listed in her past history and is wheezing but could be 'cardiac asthma'. Wheezig has improved. Continue steroids, Lasix and nebs. Check Echo. (5) Pulmonary edema: Code(s): J81.1 - Chronic pulmonary edema Status: Acute Assessment and Plan: No pedal edema. CXR concerning for pulmonary edema and she was treated with Lasix. Echo as above. Lasix stopped. Monitor, (6) Anemia: Code(s): D64.9 - Anemia, unspecified Status: Acute Assessment and Plan: Hgb 9.4 on admission. Unclear on baseline. She is not on anticoagulation nor is she on PPI or H2 yann. B12 level low and replacement ordered. Iron studies consistent with iron deficiency. Continue Protonix. Check STR. Add iron supplements once she is improved. (7) Abdominal pain: Code(s): R10.9 - Unspecified abdominal pain Status: Acute Assessment and Plan: Patietn with LLQ abdominal pain. Not a surgical abdomen. Pain persistent and CT scan showing diverticulosis with possible mild sigmoid diverticulitis. She is on abx. Continue to monitor for changes in clinical condition. (8) Hypertension: Code(s): I10 - Essential (primary) hypertension Status: Inactive Assessment and Plan: BP noted since admission and BP soft at times. She is on Norvasc, Metoprolol and Lisinopril at the [facility]. Will coninue to hold these medications for now. (9) History of CVA (cerebrovascular accident): Code(s): Z86.73 - Personal history of transient ischemic attack (TIA), and cerebral infarction without residual deficits Status: Acute Assessment and Plan: CT scan showing chronic encephalomalacia in the frontal lobes, right worse than left. Continue Aspirin. Resume Lipitor when able. Start PT/OT when she is improved (10) Hyperlipidemia: Code(s): E78.5 - Hyperlipidemia, unspecified Status: Inactive Assessment and Plan: Takes Lipitor at the [facility]. LFTs okay. Resume Lipitor when able. (11) GERD (gastroesophageal reflux disease): Code(s)
[2021-11-16 17:57] LABS: Glucose Point of Care 118 mg/dl (65-105)
[2021-11-16] MEDS: methylPREDNISolone SOD SUCC 40 MG VIAL IV PUSH ×2 (21:11→23:06)
[2021-11-16 23:00] LABS: Glucose Point of Care 201 mg/dl (65-105)
[2021-11-16] MEDS: INSULIN ASPART (*BKC) 100 UNITS/ML SUB-Q (23:04)
[2021-11-17] VITALS (24 sets, daily range): BP systolic 105–163; BP diastolic 71–129; PULSE 76–124; RESP 14–26; TEMP 36.4–37.1; O2SAT 90–100
[2021-11-17] MEDS: LEVALBUTEROL NEB 1.25 MG/3 ML 2.5 MG (02:34)
[2021-11-17] MEDS: IPRATROPIUM BR 0.02% INH SOLN 0.5 MG/2.5 ML VIAL INHALATION ×4 (02:35→20:43)
[2021-11-17 04:21] LABS: Basophils Percent Auto 0.1 % (0.2-1.2); Hemoglobin 9.6 g/dL (12.0-15.0); Immature Granulocyte Absolute 0.15 K/mm3 (0.00-0.031); Immature Granulocyte Percent A 1.1 % (0-0.5); Lymphocytes Absolute Auto 0.32 K/mm3 (0.9-3.2); Lymphocytes Percent Auto 2.4 % (18.3-44.2); Mean Corpuscular HGB Conc 28.2 g/dl (32-36); Mean Corpuscular Hemoglobin 26.4 pg (26-34); Mean Corpuscular Volume 93.4 fl (80-100); Mean Platelet Volume 8.2 fl (7.4-10.4); Monocytes Absolute Auto 0.7 K/mm3 (0.1-0.6); Monocytes Percent Auto 5.1 % (2.6-8.5); Neutrophils Absolute Auto 12.1 K/mm3 (1.3-6.7); Neutrophils Percent Auto 91.3 % (45.5-73.1); Nucleated Red Blood Cells Perc 0.2 % (0.0-0.2); Platelet Count Result 428 k/mm3 (150-375); Red Blood Count 3.64 M/mm3 (4.2-5.4); Red Cell Distribution Width 19.6 % (11.5-14.5); White Blood Count 13.2 K/mm3 (4.5-10.0)
[2021-11-17 05:03] LABS: Alanine Aminotransferase 9 U/L (4-35); Albumin Level 3.3 g/dL (3.5-5.1); Alkaline Phosphatase 68 U/L (38-126); Anion Gap 1 mmol/L (8-16); Aspartate Amino Transferase 17 U/L (14-36); Bilirubin,Total 0.4 mg/dL (0.2-1.3); Blood Urea Nitrogen 30 mg/dL (7-17); Calcium 8.3 mg/dL (8.4-10.2); Carbon Dioxide 34 mmol/L (22-30); Chloride 102 mmol/L (98-107); Estimated CRCL calculation 58 ml/min; Estimated Glomerular Filt Rate > 60; Glucose 139 mg/dL (65-110); Magnesium 2.4 mg/dL (1.6-2.3); Phosphorus 3.1 mg/dL (2.5-4.5); Potassium 4.8 mmol/L (3.4-5.0); Sodium 137 mmol/L (137-145)
[2021-11-17] MEDS: methylPREDNISolone SOD SUCC 40 MG VIAL IV PUSH (05:32)
[2021-11-17] MEDS: LEVOTHYROXINE SODIUM INJ 100 MCG/5 ML VIAL 75 MCG IV PUSH (05:32)
[2021-11-17 05:36] LABS: Thyroid Stimulating Hormone Reflex 0.211 uIU/mL (0.465-4.68)
[2021-11-17] MEDS: METOPROLOL TARTRATE INJ 5 MG/5 ML VIAL 2.5 MG IV PUSH ×3 (08:00→20:09)
[2021-11-17] MEDS: levETIRAcetam 500MG/NACL 100ML 500 MG/100 ML BAG 400 MG IVPB ×2 (08:00→20:09)
[2021-11-17] MEDS: PANTOPRAZOLE SODIUM IV 40 MG VIAL IV PUSH (08:01)
[2021-11-17] MEDS: AMIODARONE 150 MG/D5W 100 ML 150 MG/100 ML BAG 600 MG IV CONT ×2 (08:09→14:19)
[2021-11-17] MEDS: BUDESONIDE RESPULE NEB 0.5 MG/2 ML AMP INHALATION ×2 (08:26→20:34)
--- NOTE | 2021-11-17 08:46 | PM.PNPUL ---
Progress Note: A&P Assessment and Plan (1) Acute respiratory failure with hypoxia and hypercapnia: Code(s): J96.01 - Acute respiratory failure with hypoxia; J96.02 - Acute respiratory failure with hypercapnia Status: Acute Assessment and Plan: 11/15 Patient carries a diagnosis of congestive heart failure, COPD and she is a former tobacco user at 49 pack years quit 10 years ago with no bullous emphysema on her CT angiogram of the chest this admission, and is currently being treated for pneumonia, COPD exacerbation and fluid overload. Her COVID tested influenza swab are pending. Blood and urine cultures are pending. Regarding her fluid overload patient is given Lasix 40 mg IV and will monitor her ins and outs. Echocardiogram has been ordered Regarding her COPD exacerbation patient is on Solu-Medrol 60 q.6, albuterol 2.5 mg nebs q.4 hours, ipratropium 0.5 mg nebs q.4 hours and BiPAP / (managed by steel layer). A repeat blood gas on the settings is pending. There is some evidence of acute on chronic hypercarbic respiratory failure with her 1st blood gas being 7.25/74 with a serum bicarbonate of 36. Of note she had a serum bicarbonate on 08/31/2021 which was 30. She has no eosinophilia. I will reassess her for chronic hypercarbic respiratory failure after she is treated for fluid overload, COPD exacerbation and pneumonia. She may require nocturnal noninvasive ventilation. Regarding pneumonia patient is on vancomycin and cefepime which were started on 11/15. 11/16 Patient had a seizure last night and in retrospect this may have had a seizure [facility] that brought her into the hospital as by report she was in her usual state of health and had an acute deterioration. Patient has a smoking history and is labeled as COPD although she is on no inhaled medicines and she has no emphysematous changes on her CT scan of the chest. . I have no PFTs. I am not convinced she had a COPD exacerbation this hospitalization and I would recommend aggressive taper of steroids to off after 5 days. No wheezes on exam today. Continue albuterol and ipratropium nebulizers q.4 hours scheduled. Continue vancomycin and cefepime which were started on 11/15. She does have acute on chronic hypercarbic respiratory failure and the etiology of that includes possible COPD, aspiration, pneumonia, fluid overload, obstructive sleep apnea and central apnea from additional neurologic conditions. her COVID and flu swab is negative. Cultures are negative. neurology has been consulted and an MRI has been performed. When she is improved will need resting ABG during the day to assess for chronic hypercarbic respiratory failure. Echocardiogram later in the day showed a LVEF of 65-70%, moderate left atrial enlargement, severe right atrial enlargement, normal RV size, mild TR with the PASP of 33. LE dopplers negative. 11/17 The day nurse told me she fought with the BiPAP overnight was refusing to wear it and pulling it off. The patient told me the mask in breathing settings were uncomfortable. I applied the mask and then adjusted the strap so was more comfortable for her and that I went through a number of BiPAP changes so that it was more comfortable for her. The most comfortable settings were BiPAP 20, pressures 18/5, inspiratory time 1.2, rise of 5 which is are slow assist. This generated tidal volumes of about 480 mL. She thought that she could wear this tonight. White blood cell count is 13.2, creatinine is 0.8. remains in AFib with RVR and currently getting amiodarone. She again has no wheezes and given her altered mental status I will discontinue her systemic steroids at this time and monitor for worsening bronchospasm. Continue levalbuterol 1.25 q.6 and ipratropium 0.5 mg nebulized q.6. Continue budesonide 0.5 mg nebs q.12 hours. Continue vanc and Zosyn, today is day 3 Now that she is somewhat improved from a respiratory status and will
--- NOTE | 2021-11-17 09:01 | PC.NURSE ---
Addendum entered by Radha Munoz RN 11/17/21 13:10: 1300- Patient refusing IV Zosyn, she states she doesn't have pneumonia , She swatted at nurse when attempted to infuse. Increasingly becoming more confused states she is in [place], [place] is president and the year is 1919. Original Note: 0900-Patient refusing vitamin B-12 injection , refusing to wear bipap, and refusing IV insertion.
--- NOTE | 2021-11-17 09:15 | PM.IMPN ---
Progress Note: A&P Assessment and Plan (1) Acute respiratory failure with hypoxia and hypercapnia: Code(s): J96.01 - Acute respiratory failure with hypoxia; J96.02 - Acute respiratory failure with hypercapnia Status: Acute Assessment and Plan: Patient has developed acute onset of respiratory failure with hypoxia and hypercapnia. Imaging more likely pulmonary edema. PE ruled out. Unclear if this has been building over the last few days or if more like flash pulmonary edema. Consider aspiration from acid reflux and pneumonitis. Consider the development of post-COVID organizing PNA. Consider bacterial PNA and/or COPD exacerbation. UCx negative. BCx NGTD. ABG better today 7.. Able to come off BiPAP and weaned to 3L NC. Continue BiPAP at night and with naps. Continue Abx. Solu-Medrol stopped. Lasix stopped as well. Wean O2 as tolerated. Appreciate clerical warehouse worker input. (2) Seizure: Code(s): R56.9 - Unspecified convulsions Status: Acute Assessment and Plan: Patient had seizure-like activity the other night. Keppra was started and remains on Keppra. CT brain showing no acute findings. Neuro consulted and appreciate their input. Warner related to her acute illness and from her old CVAs. Continue seizure precautions. (3) Atrial fibrillation: Code(s): I48.91 - Unspecified atrial fibrillation Status: Acute Assessment and Plan: Tele showig AFib. EKG confirms this. No hx of this in the notes. Was on metoprolol on admission but held due to soft blood pressure. Unclear why she went into AFib. Echo showing EF 65-70% with indeterminate diastolic function and biatrial enlargement. May have intermittent, unrecognized AFib given the Echo findings. Consider PE but admission CTA chest negative for PE. LE dopplers negative for DVT. TSH as noted and slightly low but not felt contributing given the normal FT4. Amiodarone given x 1. She was started on IV metoprolol. She is on therapeutic Lovenox as well. Cardiology consulted. (4) Acute exacerbation of chronic obstructive airways disease: Code(s): J44.1 - Chronic obstructive pulmonary disease with (acute) exacerbation Status: Acute Assessment and Plan: Patient with COPD listed in her past history and is wheezing but could be 'cardiac asthma'. Wheezing has improved. Solu-Medrol stopped today. Continue Xopenex and Atrovent nebs. Continue Pulmicort respules. Appreciate Pulmonary input. (5) Dysphagia: Code(s): R13.10 - Dysphagia, unspecified Status: Inactive Assessment and Plan: Patient has a history of dysphagia as noted by the nursing records. Most likely acute on chronic dysphagia with chronic portion related to her old CVAs and the acute process related to above. Speech therapy did a bedside swallow yesterday and there was concerns for aspiration. Patient remains NPO. Speech therapy to continue to evaluate. Modified barium swallow if necessary. (6) Pulmonary edema: Code(s): J81.1 - Chronic pulmonary edema Status: Acute Assessment and Plan: No pedal edema. CXR concerning for pulmonary edema and she was treated with Lasix. Echo as above. Lasix stopped. CXR findings related to aspiration? Continue to monitor (7) Anemia: Code(s): D64.9 - Anemia, unspecified Status: Acute Assessment and Plan: Hgb 9.4 on admission. Unclear on baseline. She is not on anticoagulation nor is she on PPI or H2 yann. B12 level low and replacement ordered. Iron studies consistent with iron deficiency. Hgb stable in the 9-10range. Continue Protonix. Check STR. Add oral iron supplements once she is able to swallow. IV iron x 3 days. (8) Abdominal pain: Code(s): R10.9 - Unspecified abdominal pain Status: Acute Assessment and Plan: Patient with LLQ abdominal pain. Not a surgical abdomen. Pain persistent and CT scan showing diverticulosis with possible mild sigmoid divertic
--- NOTE | 2021-11-17 09:18 | WPDINTPN ---
Progress Note: A&P Assessment and Plan (1) Atrial fibrillation: Code(s): I48.91 - Unspecified atrial fibrillation Status: Acute Assessment and Plan: Post seizure activity patient went to AFib RVR with heart rates in the 130s. This morning heart rate sent down to 90-110 -seems to be new onset AFib as patient does not have a history -11/16: CT head: No acute intracranial abnormality, age-related findings, unchanged chronic encephalomalacia of the frontal lobes. -patient was started on therapeutic Lovenox on 11/16/2021 -started patient on metoprolol IV 2.5 mg q.6H -patient was also given a bolus of amiodarone 150 mg IV piggyback over 15 minutes -cardiology has been consulted for new onset atrial fibrillation, patient may be a candidate for cardioversion (2) Seizure: Code(s): R56.9 - Unspecified convulsions Status: Acute Assessment and Plan: Patient had a seizure stem lead former at around 02/30 a.m. on 11/16/2021 -patient was postictal trach, less responsive -was loaded with Keppra -continue Keppra 500 mg IV q.12 hours -11/15/2021 CT of the brain: Chronic encephalomalacia in the frontal lobes, right worse than left.2. Moderate nonspecific cerebral white matter disease, which likely represents chronic small vessel ischemic disease. -the frontal chronic encephalomalacia could be the foci for seizures, -neurology has evaluated and agree with Keppra (3) Acute respiratory failure with hypoxia and hypercapnia: Code(s): J96.01 - Acute respiratory failure with hypoxia; J96.02 - Acute respiratory failure with hypercapnia Status: Acute Assessment and Plan: Likely related to pulmonary edema, COPD, CHF -patient received Lasix 40 mg IV x1 in the ER and has had adequate urine output -was started on antibiotics with vancomycin and cefepime 11/14/21). -11/15: Blood cultures : Preliminary result is negative so far x2 -11/15 urine cultures negative -continue BiPAP when patient is sleeping, appreciate pulmonology evaluation recommendation, repeat ABG at noon today -SARS-CoV-2 PCR, influenza A and B are negative -11/15 Chest x-ray: Mild pulmonary edema, mild atelectasis in the lower lung zones, cardiomegaly. (4) Acute exacerbation of chronic obstructive airways disease: Code(s): J44.1 - Chronic obstructive pulmonary disease with (acute) exacerbation Status: Acute Assessment and Plan: Continue bronchodilators and Pulmicort -discontinue steroids -continue BiPAP when patient is sleeping, intermittently place patient on nasal cannula -appreciate pulmonary evaluation recommendation - monitor ABGs and mental status (5) Pulmonary edema: Code(s): J81.1 - Chronic pulmonary edema Status: Acute Assessment and Plan: pro BNP 559, Lasix was given -urine output has been adequate, she is in negative fluid balance 11/16: ECHO: Normal LV chamber dimension, LV systolic function is normal with the EF of 65-70%, moderately increased LV wall thickness. Left ventricular diastolic function is indeterminate, left atrial chamber is moderately enlarged, right atrial chamber dimension is severely enlarged, no pulmonary hypertension (6) Anemia: Code(s): D64.9 - Anemia, unspecified Status: Acute Assessment and Plan: Will continue to monitor Hb (7) Hypothyroidism: Code(s): E03.9 - Hypothyroidism, unspecified Status: Acute Assessment and Plan: continue levothyroxine (8) DVT prophylaxis: Code(s): Z29.9 - Encounter for prophylactic measures, unspecified Status: Acute Assessment and Plan: Therapeutic Lovenox (9) Dysphagia: Code(s): R13.10 - Dysphagia, unspecified Status: Acute Assessment and Plan: Likely due to her old CVA Speech following Modified swallow if needed per Speech therapy Additional Plan Stress ulcer prophylaxis: Protonix IV Nutrition: NPO for now, will have speech therapy evaluate patient
[2021-11-17 09:21] LABS: Free T4 Free Thyroxine Reflex 1.67 ng/dL (0.78-2.19)
[2021-11-17] MEDS: ENOXAPARIN 100 MG/ML SYRINGE 95 MG SUB-Q ×2 (10:29→20:10)
[2021-11-17] MEDS: IRON SUCROSE COMPLEX 100 MG in SODIUM CHLORIDE 0.9% IV 50 ML 220 MG IVPB (10:31)
[2021-11-17 11:22] LABS: Alveolar/Arterial O2 Gradient 132.8 mmHg; Base Excess ABG 5.6 mEq/l (+/-2.0); Fractional Inspired Oxygen 35 %; HCO3 ABG 30.7 mEq/l (22.0-26.0); Oxygen Content ABG 13.3 %vol (16.0-22.0); Oxygen Saturation ABG 92.1 % (95.0-100.0); Oxyhemoglobin 89.8 % THb (90.0-100.0); PCO2 ABG 47.2 mmHg (35.0-45.0); PO2 ABG 61.9 mmHg (80.0-100.0); PO2 FiO2 Ratio Arterial Blood 1.77 %; Total Hemoglobin 10.5 g/dL (12.0-18.0); pH ABG 7.431 (7.350-7.450)
[2021-11-17 11:24] LABS: Device NASAL CANNULA; Modified Allen's Test Pass; Site Drawn RIGHT RADIAL
[2021-11-17 11:29] LABS: Glucose Point of Care 165 mg/dl (65-105)
[2021-11-17 12:08] LABS: Total Triiodothyronine (T3) 0.64 NG/ML (0.97-1.69)
--- NOTE | 2021-11-17 13:07 | PM.CNCAR ---
Assessment and Plan Assessment and plan (1) Atrial fibrillation with rapid ventricular response: Code(s): I48.91 - Unspecified atrial fibrillation Status: Acute Assessment and Plan: Asymptomatic new onset atrial fibrillation with rapid ventricular response. May continue IV beta-yann. Given new onset after admission and on systemic anticoagulation IV amiodarone additional 150 mg bolus followed by infusion for heart rate/rhythm control. Continue anticoagulation. Transition to oral medical therapy when feasible. Enoxaparin 1 milligram/kilogram subcutaneous q.12 hours. Transition to oral anticoagulation when appropriate. Telemetry, continue to monitor. (2) History of CVA (cerebrovascular accident): Code(s): Z86.73 - Personal history of transient ischemic attack (TIA), and cerebral infarction without residual deficits Status: Acute Assessment and Plan: Evidence of encephalomalacia prior CVA. No documented history of atrial fibrillation prior to this admission as contributing explanation. (3) Acute respiratory failure with hypoxia and hypercapnia: Code(s): J96.01 - Acute respiratory failure with hypoxia; J96.02 - Acute respiratory failure with hypercapnia Status: Acute Assessment and Plan: Patient is not significant volume overload at this time. She received IV Lasix x1 in the ER. Continue monitor volume status. Continue IV antibiotics. Blood cultures negative. Noninvasive positive-pressure ventilation as appropriate. Management per primary service. I do not believe diuretics are needed at this time. Continue to monitor volume status. (4) Acute exacerbation of chronic obstructive airways disease: Code(s): J44.1 - Chronic obstructive pulmonary disease with (acute) exacerbation Status: Acute Assessment and Plan: Antibiotics, bronchodilator therapy, supplemental O2. Defer to primary service. (5) Seizure: Code(s): R56.9 - Unspecified convulsions Status: Acute Assessment and Plan: Shashank Smith following. Monitor closely. (6) Anemia: Code(s): D64.9 - Anemia, unspecified Status: Acute Assessment and Plan: H/H stable without evidence of active bleed. Monitor. History of Present Illness History of Present Illness Consult date/time: Date of Service: 11/17/21 13:07 Cardiology consultation at the request of Dr. Altamirano for our opinion regarding atrial fibrillation with rapid ventricular response. Requesting physician: Shane Altamirano MD Consult reason: atrial fibrillation Reason For Visit: Acute respiratory failure w hypoxia and hypercapne Narrative: Patient is a 81-year-old female with past medical history significant for prior CVA, hypertension, COVID September 2021 COPD who was originally admitted 11/15/2021 to the ER with shortness of breath. Patient does admit to some shortness of breath currently but no chest pain. Per electronic medical record admission patient was unable to get up and fell to the floor. She was noted be hypoxic EMS was summoned and sent to the ER. Troponins were negative serial E, BNP was only 560. She was placed on BiPAP. Patient was noted to be confused and did not remember this prior to coming to the hospital. Yesterday morning she developed atrial fibrillation with rapid ventricular response. Upon initially informing her why I was seeing her regarding atrial fibrillation she has had that was actually incorrect in that she personally knows her nurse and states that she said all this up on her own as the patient states she is very particular about who sees her. Nonetheless, patient denies palpitations or history of atrial fibrillation. Upon arrival she was noted be in sinus rhythm then developed atrial fibrillation with rapid ventricular response after admission. She has been receiving IV metoprolol as she is NPO. She received amiodarone 150 mg IV bolus x1 better heart rate control but without con
[2021-11-17] MEDS: AMIODARONE 360 MG/D5W 200 ML 360 MG/200 ML BAG 16.67 MG IV CONT (14:20)
[2021-11-17] MEDS: AMIODARONE 360 MG/D5W 200 ML 360 MG/200 ML BAG 33.33 MG IV CONT (14:30)
--- NOTE | 2021-11-17 14:41 | PCSTNOTE ---
Please refer to the Modified Barium Swallow Evaluation in the EMR.
[2021-11-17 15:22] LABS: Vancomycin Trough 15.8 ug/mL (10.0-20.0)
[2021-11-17 17:05] LABS: Glucose Point of Care 135 mg/dl (65-105)
[2021-11-18] VITALS (26 sets, daily range): BP systolic 116–142; BP diastolic 65–95; PULSE 73–92; RESP 15–20; TEMP 36.6–37.2; O2SAT 90–100
[2021-11-18] LABS: Glucose Point of Care 146 mg/dl (65-105)
[2021-11-18] MEDS: IPRATROPIUM BR 0.02% INH SOLN 0.5 MG/2.5 ML VIAL INHALATION ×4 (01:27→20:46)
[2021-11-18 04:33] LABS: Basophils Percent Auto 0.2 % (0.2-1.2); Eosinophils Percent Auto 0.1 % (0-4.4); Hematocrit 31.4 % (37.0-47.0); Hemoglobin 9.2 g/dL (12.0-15.0); Immature Granulocyte Absolute 0.09 K/mm3 (0.00-0.031); Immature Granulocyte Percent A 0.8 % (0-0.5); Lymphocytes Absolute Auto 0.71 K/mm3 (0.9-3.2); Lymphocytes Percent Auto 6.1 % (18.3-44.2); Mean Corpuscular HGB Conc 29.3 g/dl (32-36); Mean Corpuscular Hemoglobin 26.5 pg (26-34); Mean Corpuscular Volume 90.5 fl (80-100); Mean Platelet Volume 8.4 fl (7.4-10.4); Monocytes Absolute Auto 1.6 K/mm3 (0.1-0.6); Neutrophils Absolute Auto 9.1 K/mm3 (1.3-6.7); Neutrophils Percent Auto 78.8 % (45.5-73.1); Platelet Count Result 452 k/mm3 (150-375); Red Blood Count 3.47 M/mm3 (4.2-5.4); Red Cell Distribution Width 20.1 % (11.5-14.5); White Blood Count 11.6 K/mm3 (4.5-10.0)
[2021-11-18 04:43] LABS: Alanine Aminotransferase 8 U/L (4-35); Albumin Level 3.2 g/dL (3.5-5.1); Alkaline Phosphatase 63 U/L (38-126); Anion Gap 6 mmol/L (8-16); Aspartate Amino Transferase 15 U/L (14-36); Bilirubin,Total 0.1 mg/dL (0.2-1.3); Blood Urea Nitrogen 29 mg/dL (7-17); Calcium 8.1 mg/dL (8.4-10.2); Carbon Dioxide 33 mmol/L (22-30); Chloride 101 mmol/L (98-107); Estimated CRCL calculation 52 ml/min; Estimated Glomerular Filt Rate 60; Glucose 100 mg/dL (65-110); Magnesium 2.4 mg/dL (1.6-2.3); Phosphorus 2.3 mg/dL (2.5-4.5); Potassium 3.6 mmol/L (3.4-5.0); Sodium 140 mmol/L (137-145)
[2021-11-18 05:06] LABS: Hypochromasia 1+ (NORMAL); Platelet Estimate Adequate (Adequate)
[2021-11-18 05:07] LABS: Poikilocytosis 1+ (NORMAL)
[2021-11-18 05:47] LABS: Base Excess ABG 7.2 mEq/l (+/-2.0); HCO3 ABG 32.3 mEq/l (22.0-26.0); Oxygen Content ABG 12.8 %vol (16.0-22.0); Oxygen Saturation ABG 92.8 % (95.0-100.0); Oxyhemoglobin 90.5 % THb (90.0-100.0); PCO2 ABG 48.4 mmHg (35.0-45.0); PO2 ABG 63.6 mmHg (80.0-100.0); pH ABG 7.442 (7.350-7.450)
[2021-11-18 05:48] LABS: Device NASAL CANNULA; Modified Allen's Test Pass; Site Drawn LEFT RADIAL
[2021-11-18] MEDS: LEVOTHYROXINE SODIUM INJ 100 MCG/5 ML VIAL 75 MCG IV PUSH (05:48)
[2021-11-18 05:49] LABS: Fractional Inspired Oxygen 32 %
[2021-11-18 05:58] LABS: Alveolar/Arterial O2 Gradient 107.9 mmHg
[2021-11-18 05:59] LABS: PO2 FiO2 Ratio Arterial Blood 1.99 %
[2021-11-18] MEDS: BUDESONIDE RESPULE NEB 0.5 MG/2 ML AMP INHALATION ×2 (08:35→20:46)
--- NOTE | 2021-11-18 08:49 | PCOTNOTE ---
Attempted to see pt. for evaluation. Pt. currently getting breathing treatment.
[2021-11-18] MEDS: levETIRAcetam 500MG/NACL 100ML 500 MG/100 ML BAG 400 MG IVPB ×2 (09:13→21:19)
[2021-11-18] MEDS: METOPROLOL TARTRATE INJ 5 MG/5 ML VIAL 2.5 MG IV PUSH ×2 (09:17→17:43)
[2021-11-18] MEDS: CYANOCOBALAMIN INJ 1,000 MCG/ML VIAL 1000 MCG IM (09:18)
[2021-11-18] MEDS: ENOXAPARIN 100 MG/ML SYRINGE 95 MG SUB-Q ×2 (09:19→21:20)
[2021-11-18] MEDS: PANTOPRAZOLE SODIUM IV 40 MG VIAL IV PUSH (09:19)
[2021-11-18] MEDS: IRON SUCROSE COMPLEX 100 MG in SODIUM CHLORIDE 0.9% IV 50 ML 220 MG IVPB (09:20)
--- NOTE | 2021-11-18 09:25 | PM.IMPN ---
Progress Note: A&P Assessment and Plan (1) Atrial fibrillation: Code(s): I48.91 - Unspecified atrial fibrillation Status: Acute Assessment and Plan: Post seizure activity patient went to AFib RVR with heart rates in the 130s. -seems to be new onset AFib as patient does not have a history . -started on therapeutic Lovenox on 11/16/2021 -metoprolol IV 2.5 mg q.6H -bolus of amiodarone 150 mg IV piggyback over 15 minutes -cardiology consulting (2) Seizure: Code(s): R56.9 - Unspecified convulsions Status: Acute Assessment and Plan: Patient had a seizure dental nurse at around 02/30 a.m. on 11/16/2021 -patient was postictal trach, less responsive -was loaded with Keppra -continue Keppra 500 mg IV q.12 hours -11/15/2021 CT of the brain: Chronic encephalomalacia in the frontal lobes, right worse than left.2. Moderate nonspecific cerebral white matter disease, which likely represents chronic small vessel ischemic disease. -the frontal chronic encephalomalacia could be the foci for seizures, -neurology has evaluated and agreed with Keppra (3) Acute respiratory failure with hypoxia and hypercapnia: Code(s): J96.01 - Acute respiratory failure with hypoxia; J96.02 - Acute respiratory failure with hypercapnia Status: Acute Assessment and Plan: Likely related to pulmonary edema, COPD, CHF -patient received Lasix 40 mg IV x1 in the ER and has had adequate urine output -was started on antibiotics with vancomycin and cefepime 11/14/21 -11/15: Blood cultures : Preliminary result is negative x2 -11/15 urine cultures negative -continue BiPAP when patient is sleeping -pulmonology consulting -SARS-CoV-2 PCR, influenza A and B are negative -11/18 Chest x-ray 1. Airspace opacities in the mid and lower lung zones with worsening on the left, consistent with atelectasis versus pneumonia. 2. Cardiomegaly. (4) Acute exacerbation of chronic obstructive airways disease: Code(s): J44.1 - Chronic obstructive pulmonary disease with (acute) exacerbation Status: Acute Assessment and Plan: Continue bronchodilators and Pulmicort -discontinued steroids -continue BiPAP when patient is sleeping, intermittently place patient on nasal cannula - F/u O2 sats with ABG prn (5) Pulmonary edema: Code(s): J81.1 - Chronic pulmonary edema Status: Acute Assessment and Plan: pro BNP 559, Lasix was given -urine output has been adequate, she is in negative fluid balance 11/16: ECHO: Normal LV chamber dimension, LV systolic function is normal with the EF of 65-70%, moderately increased LV wall thickness. Left ventricular diastolic function is indeterminate, left atrial chamber is moderately enlarged, right atrial chamber dimension is severely enlarged, no pulmonary hypertension (6) Anemia: Code(s): D64.9 - Anemia, unspecified Status: Acute Assessment and Plan: f/u H/h (7) Hypothyroidism: Code(s): E03.9 - Hypothyroidism, unspecified Status: Acute Assessment and Plan: continue levothyroxine (8) DVT prophylaxis: Code(s): Z29.9 - Encounter for prophylactic measures, unspecified Status: Acute Assessment and Plan: Therapeutic Lovenox (9) Dysphagia: Code(s): R13.10 - Dysphagia, unspecified Status: Acute Assessment and Plan: Likely due to her old CVA Speech following Consider repeat swallow eval 11/19 or 11/20 Subjective Date/time seen: 11/18/21 09:25 Interval history: Brenda Rocha is a 81 year old female past history of COPD, emphysema, gastroesophageal reflux disease, hypertension, hyperlipidemia, was tested positive for COVID in September 2021 but was not admitted to the hospital, has received COVID vaccine x2, patient does not use any oxygen at the assisted. Patient presented the ED on 11/15/2021 with complains of weakness, shortness of breath, hypoxia. According the records she was too weak
--- NOTE | 2021-11-18 11:37 | PM.PNCARD ---
Progress Note: A&P Assessment and Plan (1) Paroxysmal A-fib: Code(s): I48.0 - Paroxysmal atrial fibrillation Status: Acute Assessment and Plan: Patient has converted to sinus rhythm. Has good risk of recurrent AFib so recommend ongoing therapy. CHADS2 Vasc score is 5. Recommend chronic anticoagulation. Reviewed all this with the patient. DC amiodarone Change IV metoprolol to: Metoprolol tartrate 25 mg b.i.d. Change Lovenox to: Xarelto 20 mg p.o. q.d. I assume the patient's aspirin use was to treat her history of stroke; no history of other vascular disease. Do not see need for both aspirin and anticoagulation. Will discontinue aspirin. (2) Atrial fibrillation with rapid ventricular response: Code(s): I48.91 - Unspecified atrial fibrillation Status: Acute (3) Acute exacerbation of chronic obstructive airways disease: Code(s): J44.1 - Chronic obstructive pulmonary disease with (acute) exacerbation Status: Acute Assessment and Plan: Improving, now on nasal O2. (4) Acute diastolic CHF (congestive heart failure): Code(s): I50.31 - Acute diastolic (congestive) heart failure Status: Acute Assessment and Plan: Had acute diastolic heart failure on admission due to hypoxia and AFib RVR, resolved. (5) Anemia: Code(s): D64.9 - Anemia, unspecified Status: Acute Assessment and Plan: Normocytic normochromic anemia. Will need to follow H&H while on anticoagulation. (6) History of CVA (cerebrovascular accident): Code(s): Z86.73 - Personal history of transient ischemic attack (TIA), and cerebral infarction without residual deficits Status: Acute (7) Seizure: Code(s): R56.9 - Unspecified convulsions Status: Acute Assessment and Plan: Had a seizure this admission, on Keppra. Subjective Date/time seen: 11/18/21 11:37 Follow-up for new onset AFib. Admitted with COPD exacerbation. Date of service 11/18/2021: Feels better today. Breathing is better, no pain or palpitations. Converted to sinus rhythm yesterday on IV amiodarone and low-dose metoprolol.. Anticoagulated with Lovenox. On BiPAP overnight, now 2 L.. Echo as below, EF 65-70%, no significant valve disease. Review of Systems Constitutional: Constitutional: Reports no additional constitutional complaints Eyes: Eyes: Reports no additional eye complaints ENT: Denies epistaxis Cardiovascular: Cardiovascular: Denies chest pain, Denies leg edema, Denies lightheadedness and Denies palpitations Respiratory: Respiratory: Reports cough and Reports dyspnea on exertion Gastrointestinal: Gastrointestinal: Denies abdominal pain Genitourinary: Genitourinary: Denies hematuria Musculoskeletal: Musculoskeletal: Reports no additional musculoskeletal complaints Integumentary/Breasts: Skin/Breast: Denies rash Neurologic: Reports system reviewed and no additional complaints, except as documented Psychiatric: Psychiatric: Reports no additional psychiatric complaints Exam Narrative: Sitting up in a chair watching a Western on TV, all bundled up, smiling and conversant. Const: General: comfortable and no acute distress HENMT: General nose exam: Epistaxis present Eyes: EOM: EOMs intact bilaterally Neck: Neck: supple Resp: Auscultation: wheezes Other: Scattered wheezes Cardio: Rate: regular rate Rhythm: regular rhythm Heart sounds: no murmurs GI: Inspection: non-distended GI Palp: Yes Soft to palpation Urinary Catheter: Urinary Catheter: patent and draining and urine clear Skin: General skin exam: no rashes or lesions noted Neuro: Cognition (Neuro): normal cognition Speech: normal speech Extrem: General: no edema Psych: Mental Status: mental status grossly normal Affect: normal affect Objective Data Vital Signs Vital Signs: Vital Signs - 24 hr 11/17/21 12:00 11/17/21 14:00 11/17/21 14:19 Temperature 98.8 F Puls
--- NOTE | 2021-11-18 11:39 | PM.PNPUL ---
Progress Note: A&P Assessment and Plan (1) Acute respiratory failure with hypoxia and hypercapnia: Code(s): J96.01 - Acute respiratory failure with hypoxia; J96.02 - Acute respiratory failure with hypercapnia Status: Acute Assessment and Plan: 81-year-old female presented with hypercapnic hypoxemic respiratory failure, segmental atelectasis at bases bilaterally, small pleural effusions on chest diagnostic studies, and also elevated right hemidiaphragm. Initial blood gases consistent with acute on chronic hypercapnic respiratory failure, most likely. The patient has significantly improved since admission. Currently she is tolerating BiPAP support at night, with significantly improved hypercapnia on recent blood gases. Arterial PO2 has not significantly increased since admission. Om physical exam, she has some crackles at the bases, more on right lung base probably related to elevated diaphragm/ diaphragmatic weakness. The patient's hypercapnic respiratory failure could be related to obesity/ sleep disordered breathing and likely due to diaphragm weakness on the right. I would continue with BiPAP support at night and p.r.n. during the day. I have changed the BiPAP settings by increasing EPAP to 8 cm water, as she may still have atelectasis. We will monitor respiratory status on BiPAP support. Patient will need a sniff test prior to discharging home for possible right hemidiaphragm weakness. (2) Seizure: Code(s): R56.9 - Unspecified convulsions Status: Acute (3) Atrial fibrillation: Code(s): I48.91 - Unspecified atrial fibrillation Status: Acute (4) Dysphagia: Code(s): R13.10 - Dysphagia, unspecified Status: Acute Subjective Date/time seen: 11/18/21 11:39 81-year-old female presented with hypoxemic hypercapnic respiratory failure, bilateral atelectasis on chest imaging studies small pleural effusions. The patient has improved following treatment with BiPAP support. she used BiPAP support last night with 18/5, respiratory rate 20 and FiO2 40%. Currently she is sitting in chair breathing just supplemental oxygen 3 liters/minute. Patient appears to be fully awake and oriented. Review of Systems Review of Systems: All systems reviewed & are unremarkable except as noted in HPI and below Exam Const: Other: GENERAL APPEARANCE: Well developed, well nourished, alert and cooperative, and appears to be in no acute distress While on supplemental oxygen via nasal cannula SKIN: Inspection of the skin reveals no rashes, ulcerations or petechiae. HEENT: Sclerae anicteric and conjunctivae pink and moist. Extraocular movements were intact and pupils were equal. NECK: Supple. There was no thyroid enlargement, and no tenderness, or masses were felt. CHEST: Normal AP diameter and normal contour without any kyphoscoliosis. LUNGS: Auscultation of the lungs revealed normal crackles at bases posteriorly, right worse than left no wheezing CARDIAC: There was a regular rate and rhythm without any murmurs. ABDOMEN: Soft and nontender with normal bowel sounds. There was no organomegaly. LYMPH NODES: No lymphadenopathy was appreciated in the neck. EXTREMITIES: No cyanosis, clubbing or edema. NEUROLOGIC: Alert and oriented x 3. Normal affect. Objective Data Vital Signs Vital Signs: Vital Signs - 24 hr 11/17/21 12:00 11/17/21 14:00 11/17/21 14:19 Temperature 37.1 C Pulse Rate 109 H 93 86 Respiratory Rate 21 H 21 H Blood Pressure 116/89 122/78 Pulse Oximetry 91 93 11/17/21 14:20 11/17/21 15:03 11/17/21 15:16 Temperature Pulse Rate 82 92 99 Respiratory Rate 14 17 Blood Pressure Pulse Oximetry 11/17/21 16:00 11/17/21 17:00 11/17/21 18:00 Temperature 36.6 C Pulse Rate 90 83 81 Respiratory Rate 18 Blood Pressure 117/88 Pulse Oximetry 90 11/17/21 20:00 11/17/21 20:09 11/17/21 20:47 Temperature 37.0 C Pulse Rate 80 76 77 Respiratory Rate 18 16 Blo
[2021-11-18 13:18] LABS: Glucose Point of Care 98 mg/dl (65-105)
[2021-11-18 17:53] LABS: Glucose Point of Care 99 mg/dl (65-105)
[2021-11-19] VITALS (31 sets, daily range): BP systolic 124–157; BP diastolic 65–95; PULSE 72–88; RESP 13–18; TEMP 35.4–37.1; O2SAT 92–99
[2021-11-19] MEDS: METOPROLOL TARTRATE INJ 5 MG/5 ML VIAL 2.5 MG IV PUSH ×5 (00:14→23:20)
[2021-11-19 00:24] LABS: Glucose Point of Care 108 mg/dl (65-105)
[2021-11-19] MEDS: IPRATROPIUM BR 0.02% INH SOLN 0.5 MG/2.5 ML VIAL INHALATION ×4 (01:59→20:23)
--- NOTE | 2021-11-19 03:03 | PC.NURSE ---
Daylight Savings Time For Daylight Savings Time Ending in the Fall - Clocks are moved back. For Daylight Savings Time Beginning in the Spring - Clocks are moved ahead. For [facility], the time of change occurs at 0200 hrs. Time is taken from the surveillance observer. This entry on the patient's chart recognizes the change in time reflected during documentation. Example: 2 entries for vital signs may be charted for 0200 hrs.
[2021-11-19] MEDS: LEVOTHYROXINE SODIUM INJ 100 MCG/5 ML VIAL 75 MCG IV PUSH (06:08)
[2021-11-19 06:21] LABS: Glucose Point of Care 95 mg/dl (65-105)
[2021-11-19] MEDS: BUDESONIDE RESPULE NEB 0.5 MG/2 ML AMP INHALATION ×2 (08:09→20:25)
[2021-11-19 08:27] LABS: Hematocrit 34.8 % (37.0-47.0); Hemoglobin 9.9 g/dL (12.0-15.0); Mean Corpuscular HGB Conc 28.4 g/dl (32-36); Mean Corpuscular Hemoglobin 26.4 pg (26-34); Mean Corpuscular Volume 92.8 fl (80-100); Mean Platelet Volume 9.9 fl (7.4-10.4); Platelet Count Result 292 k/mm3 (150-375); Red Blood Count 3.75 M/mm3 (4.2-5.4); Red Cell Distribution Width 20.4 % (11.5-14.5); White Blood Count 7.7 K/mm3 (4.5-10.0)
[2021-11-19] MEDS: levETIRAcetam 500MG/NACL 100ML 500 MG/100 ML BAG 400 MG IVPB ×2 (08:39→21:10)
[2021-11-19 08:40] LABS: Alanine Aminotransferase 7 U/L (4-35); Albumin Level 3.3 g/dL (3.5-5.1); Alkaline Phosphatase 58 U/L (38-126); Anion Gap 3 mmol/L (8-16); Aspartate Amino Transferase 20 U/L (14-36); Bilirubin,Total 0.7 mg/dL (0.2-1.3); Blood Urea Nitrogen 18 mg/dL (7-17); Calcium 7.7 mg/dL (8.4-10.2); Carbon Dioxide 32 mmol/L (22-30); Chloride 103 mmol/L (98-107); Estimated CRCL calculation 66 ml/min; Estimated Glomerular Filt Rate > 60; Glucose 98 mg/dL (65-110); Potassium 4.2 mmol/L (3.4-5.0); Sodium 138 mmol/L (137-145)
[2021-11-19] MEDS: ENOXAPARIN 100 MG/ML SYRINGE 95 MG SUB-Q ×2 (08:40→21:09)
[2021-11-19] MEDS: PANTOPRAZOLE SODIUM IV 40 MG VIAL IV PUSH (08:40)
[2021-11-19] MEDS: IRON SUCROSE COMPLEX 100 MG in SODIUM CHLORIDE 0.9% IV 50 ML 220 MG IVPB (09:05)
--- NOTE | 2021-11-19 10:00 | PM.PNPUL ---
Progress Note: A&P Assessment and Plan (1) Acute respiratory failure with hypoxia and hypercapnia: Code(s): J96.01 - Acute respiratory failure with hypoxia; J96.02 - Acute respiratory failure with hypercapnia Status: Acute Assessment and Plan: 81-year-old female presented with hypercapnic hypoxemic respiratory failure, segmental atelectasis at bases bilaterally, small pleural effusions on chest diagnostic studies, and also elevated right hemidiaphragm. Initial blood gases consistent with acute on chronic hypercapnic respiratory failure, most likely. The patient has significantly improved since admission. Currently she is tolerating BiPAP support at night, with significantly improved hypercapnia on recent blood gases. Arterial PO2 has not significantly increased since admission. Om physical exam, she has some crackles at the bases, more on right lung base probably related to elevated diaphragm/ diaphragmatic weakness. The patient's hypercapnic respiratory failure could be related to obesity/ sleep disordered breathing and likely to diaphragm weakness on the right. I would continue with BiPAP support at night and p.r.n. during the day. I have changed the BiPAP settings by increasing EPAP to 8 cm water, as she may still have atelectasis. We will monitor respiratory status on BiPAP support. ABGs in am. Patient will need a sniff test prior to discharging home for possible right hemidiaphragm weakness. (2) Seizure: Code(s): R56.9 - Unspecified convulsions Status: Acute (3) Atrial fibrillation: Code(s): I48.91 - Unspecified atrial fibrillation Status: Acute (4) Dysphagia: Code(s): R13.10 - Dysphagia, unspecified Status: Acute Subjective Date/time seen: 11/19/21 10:01 Patient has no new respiratory symptoms. Used BiPAP last night for approximately 6 hours. Remaining on supplemental oxygen at 3 liters/minute. She appears confused as she could not remember whether she used BiPAP last night. Review of Systems Review of Systems: All systems reviewed & are unremarkable except as noted in HPI and below Exam Const: Other: GENERAL APPEARANCE: Well developed, well nourished, alert and cooperative, and appears to be in no acute distress While on supplemental oxygen via nasal cannula SKIN: Inspection of the skin reveals no rashes, ulcerations or petechiae. HEENT: Sclerae anicteric and conjunctivae pink and moist. Extraocular movements were intact and pupils were equal. NECK: Supple. There was no thyroid enlargement, and no tenderness, or masses were felt. CHEST: Normal AP diameter and normal contour without any kyphoscoliosis. LUNGS: Auscultation of the lungs revealed normal crackles at bases posteriorly, right worse than left no wheezing CARDIAC: There was a regular rate and rhythm without any murmurs. ABDOMEN: Soft and nontender with normal bowel sounds. There was no organomegaly. LYMPH NODES: No lymphadenopathy was appreciated in the neck. EXTREMITIES: No cyanosis, clubbing or edema. NEUROLOGIC: Alert and oriented x 3. Normal affect. Objective Data Vital Signs Vital Signs: Vital Signs - 24 hr 11/18/21 09:17 11/18/21 10:00 11/18/21 11:08 Temperature Pulse Rate 88 83 Pulse Rate [With Activity During Therapy Session] 91 Respiratory Rate Blood Pressure Pulse Oximetry Pulse Oximetry [With Activity During Therapy Session] 92 11/18/21 12:00 11/18/21 14:00 11/18/21 14:18 Temperature 36.6 C Pulse Rate 82 90 82 Pulse Rate [With Activity During Therapy Session] Respiratory Rate 20 17 Blood Pressure 142/82 H Pulse Oximetry 95 Pulse Oximetry [With Activity During Therapy Session] 11/18/21 14:34 11/18/21 15:42 11/18/21 16:00 Temperature 37.2 C Pulse Rate 84 92 Pulse Rate [With Activity During Therapy Session] Respiratory Rate 18 17 Blood Pressure 134/76 Pulse Oximetry 93 Pulse Oximetry [With Activity During Therapy Session] 9
--- NOTE | 2021-11-19 10:37 | PM.PNCARD ---
Progress Note: A&P Assessment and Plan (1) Paroxysmal A-fib: Code(s): I48.0 - Paroxysmal atrial fibrillation Status: Acute Assessment and Plan: Patient has converted to sinus rhythm. Has good risk of recurrent AFib so recommend ongoing therapy. CHADS2 Vasc score is 6. Recommend chronic anticoagulation. DC'd amiodarone and ASA 11/19/2021 Cont IV metoprolol and IV Lovenox while pt is NPO Cont Tele (2) Atrial fibrillation with rapid ventricular response: Code(s): I48.91 - Unspecified atrial fibrillation Status: Acute (3) Acute exacerbation of chronic obstructive airways disease: Code(s): J44.1 - Chronic obstructive pulmonary disease with (acute) exacerbation Status: Acute Assessment and Plan: Improving, now on nasal O2 during the day. (4) Acute diastolic CHF (congestive heart failure): Code(s): I50.31 - Acute diastolic (congestive) heart failure Status: Acute Assessment and Plan: Had acute diastolic heart failure on admission due to hypoxia and AFib RVR, resolved. (5) Anemia: Code(s): D64.9 - Anemia, unspecified Status: Acute Assessment and Plan: Normocytic normochromic anemia. Will need to follow H&H while on anticoagulation. Stable so far. (6) History of CVA (cerebrovascular accident): Code(s): Z86.73 - Personal history of transient ischemic attack (TIA), and cerebral infarction without residual deficits Status: Acute (7) Seizure: Code(s): R56.9 - Unspecified convulsions Status: Acute Assessment and Plan: Had a seizure this admission, on Keppra. Subjective Date/time seen: 11/19/21 10:37 Interval history: Follow-up for new onset AFib. Admitted with COPD exacerbation. H/O HTN and strokes. Date of service 11/18/2021: Feels better today. Breathing is better, no pain or palpitations. Converted to sinus rhythm yesterday on IV amiodarone and low-dose metoprolol.. Anticoagulated with Lovenox. On BiPAP overnight, now 2 L.. Echo as below, EF 65-70%, no significant valve disease. DC'd amio and ASA,Continued IV metoprolol and Lovenox since patient failed her swallow study and was NPO. Date of Service 11/19/2021: Patient feels well, still a mild cough, no shortness of breath at rest. BiPAP overnight, now on 2 L O2. Telemetry shows patient has remained in sinus rhythm. Review of Systems Constitutional: Constitutional: Reports no additional constitutional complaints Eyes: Eyes: Reports no additional eye complaints ENT: Denies epistaxis Cardiovascular: Cardiovascular: Denies chest pain, Denies leg edema, Denies lightheadedness, Denies palpitations and Reports dyspnea on exertion Respiratory: Respiratory: Reports cough and Reports dyspnea on exertion Gastrointestinal: Gastrointestinal: Denies abdominal pain Genitourinary: Genitourinary: Denies hematuria Musculoskeletal: Musculoskeletal: Reports no additional musculoskeletal complaints Integumentary/Breasts: Skin/Breast: Denies rash Neurologic: Reports system reviewed and no additional complaints, except as documented Psychiatric: Psychiatric: Reports no additional psychiatric complaints Endocrine: Endocrine: Denies palpitations Exam Narrative: Napping on arrival, easily awakened, pleasant. Const: General: comfortable and no acute distress HENMT: General nose exam: no epistaxis Eyes: EOM: EOMs intact bilaterally Neck: Neck: supple Resp: Auscultation: wheezes Other: Scattered wheezes Cardio: Rate: regular rate Rhythm: regular rhythm Heart sounds: no murmurs GI: Inspection: non-distended GI Palp: No Tenderness to palpation present (GI) Urinary Catheter: Urinary Catheter: patent and draining and urine clear Skin: General skin exam: no rashes or lesions noted Other: Ecchymosis over forearms Neuro: Cognition (Neuro): abnormal cognition (May have some cognitive dysfunction) Speech: normal speech Extrem: Ge
[2021-11-19 12:56] LABS: Glucose Point of Care 78 mg/dl (65-105)
--- NOTE | 2021-11-19 14:17 | PM.IMPN ---
Progress Note: A&P Assessment and Plan (1) Atrial fibrillation: Code(s): I48.91 - Unspecified atrial fibrillation Status: Acute Assessment and Plan: Post seizure activity patient went to AFib RVR with heart rates in the 130s. -seems to be new onset AFib as patient does not have a history . 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 Moderate nonspecific cerebral white matter disease, which likely represents chronic small vessel ischemic disease. -the frontal chronic encephalomalacia could be the foci for seizures, -neurology has evaluated and agreed with Keppra 11/19 w/o recurrence (3) Acute respiratory failure with hypoxia and hypercapnia: Code(s): J96.01 - Acute respiratory failure with hypoxia; J96.02 - Acute respiratory failure with hypercapnia Status: Acute Assessment and Plan: Likely related to pulmonary edema, COPD, CHF -patient received Lasix 40 mg IV x1 in the ER and has had adequate urine output -was started on antibiotics with vancomycin and cefepime 11/14/21 -11/15: Blood cultures : Preliminary result is negative x2 -11/15 urine cultures negative -continue BiPAP when patient is sleeping -SARS-CoV-2 PCR, influenza A and B are negative -11/18 Chest x-ray 1. Airspace opacities in the mid and lower lung zones with worsening on the left, consistent with atelectasis versus pneumonia. 2. Cardiomegaly. (4) Acute exacerbation of chronic obstructive airways disease: Code(s): J44.1 - Chronic obstructive pulmonary disease with (acute) exacerbation Status: Acute Assessment and Plan: Continue bronchodilators and Pulmicort -discontinued steroids -continue BiPAP when patient is sleeping, intermittently place patient on nasal cannula - F/u O2 sats with ABG prn (5) Pulmonary edema: Code(s): J81.1 - Chronic pulmonary edema Status: Acute Assessment and Plan: pro BNP 559, Lasix was given -urine output has been adequate, she is in negative fluid balance 11/16: ECHO: Normal LV chamber dimension, LV systolic function is normal with the EF of 65-70%, moderately increased LV wall thickness. Left ventricular diastolic function is indeterminate, left atrial chamber is moderately enlarged, right atrial chamber dimension is severely enlarged, no pulmonary hypertension (6) Anemia: Code(s): D64.9 - Anemia, unspecified Status: Acute Assessment and Plan: f/u H/h (7) Hypothyroidism: Code(s): E03.9 - Hypothyroidism, unspecified Status: Acute Assessment and Plan: continue levothyroxine (8) Dysphagia: Code(s): R13.10 - Dysphagia, unspecified Status: Acute Assessment and Plan: Likely due to her old CVA Speech following Consider repeat swallow eval 11/20 Subjective Date/time seen: 11/19/21 14:17 Interval history: Brenda Rocha is a 81 year old female past history of COPD, emphysema, gastroesophageal reflux disease, hypertension, hyperlipidemia, was tested positive for COVID in September 2021 but was not admitted to the hospital, has received COVID vaccine x2, patient does not use any oxygen at the longterm. Patient presented the ED on 11/15/2021 with complains of weakness, shortness of breath, hypoxia. According the records she was too weak to get out of the bed and slid out of her bed onto the floor. Denied any LOC or hitting her head on the floor. Patient was found by the staff having di
[2021-11-19 18:38] LABS: Glucose Point of Care 100 mg/dl (65-105)
[2021-11-19 23:50] LABS: Glucose Point of Care 124 mg/dl (65-105)
[2021-11-20] VITALS (29 sets, daily range): BP systolic 124–153; BP diastolic 67–82; PULSE 72–89; RESP 16–24; TEMP 35.6–36.6; O2SAT 91–97
[2021-11-20] MEDS: IPRATROPIUM BR 0.02% INH SOLN 0.5 MG/2.5 ML VIAL INHALATION ×4 (03:21→20:12)
[2021-11-20 04:59] LABS: Hematocrit 34.7 % (37.0-47.0); Hemoglobin 10.2 g/dL (12.0-15.0); Mean Corpuscular HGB Conc 29.4 g/dl (32-36); Mean Corpuscular Hemoglobin 26.3 pg (26-34); Mean Corpuscular Volume 89.4 fl (80-100); Mean Platelet Volume 8.4 fl (7.4-10.4); Platelet Count Result 445 k/mm3 (150-375); Red Blood Count 3.88 M/mm3 (4.2-5.4); Red Cell Distribution Width 19.9 % (11.5-14.5); White Blood Count 9.3 K/mm3 (4.5-10.0)
[2021-11-20 05:09] LABS: Alanine Aminotransferase 9 U/L (4-35); Albumin Level 3.3 g/dL (3.5-5.1); Alkaline Phosphatase 64 U/L (38-126); Anion Gap 3 mmol/L (8-16); Aspartate Amino Transferase 16 U/L (14-36); Bilirubin,Total 0.7 mg/dL (0.2-1.3); Blood Urea Nitrogen 18 mg/dL (7-17); Carbon Dioxide 34 mmol/L (22-30); Chloride 103 mmol/L (98-107); Estimated CRCL calculation 52 ml/min; Estimated Glomerular Filt Rate 60; Glucose 93 mg/dL (65-110); Potassium 3.7 mmol/L (3.4-5.0); Sodium 140 mmol/L (137-145)
[2021-11-20 05:20] LABS: Glucose Point of Care 95 mg/dl (65-105)
[2021-11-20] MEDS: METOPROLOL TARTRATE INJ 5 MG/5 ML VIAL 2.5 MG IV PUSH ×3 (05:33→17:36)
[2021-11-20] MEDS: LEVOTHYROXINE SODIUM INJ 100 MCG/5 ML VIAL 75 MCG IV PUSH (05:34)
[2021-11-20] MEDS: BUDESONIDE RESPULE NEB 0.5 MG/2 ML AMP INHALATION (07:59)
[2021-11-20 08:14] LABS: Base Excess ABG 0.9 mEq/l (+/-2.0); Fractional Inspired Oxygen 36 %; HCO3 ABG 28.2 mEq/l (22.0-26.0); Oxygen Content ABG 15.8 %vol (16.0-22.0); Oxygen Saturation ABG 94.2 % (95.0-100.0); Oxyhemoglobin 91.8 % THb (90.0-100.0); PCO2 ABG 57.4 mmHg (35.0-45.0); PO2 ABG 78.1 mmHg (80.0-100.0); PO2 FiO2 Ratio Arterial Blood 2.17 %; Total Hemoglobin 12.2 g/dL (12.0-18.0); pH ABG 7.309 (7.350-7.450)
[2021-11-20 08:15] LABS: Modified Allen's Test Pass; Site Drawn RIGHT RADIAL
[2021-11-20 08:16] LABS: Device NASAL CANNULA
[2021-11-20] MEDS: ENOXAPARIN 100 MG/ML SYRINGE 95 MG SUB-Q ×2 (08:30→20:27)
[2021-11-20] MEDS: PANTOPRAZOLE SODIUM IV 40 MG VIAL IV PUSH (08:30)
[2021-11-20] MEDS: levETIRAcetam 500MG/NACL 100ML 500 MG/100 ML BAG 400 MG IVPB ×2 (08:30→20:27)
--- NOTE | 2021-11-20 09:26 | PM.PNPUL ---
Progress Note: A&P Assessment and Plan (1) Acute respiratory failure with hypoxia and hypercapnia: Code(s): J96.01 - Acute respiratory failure with hypoxia; J96.02 - Acute respiratory failure with hypercapnia Status: Acute Assessment and Plan: 81-year-old female presented with hypercapnic hypoxemic respiratory failure, segmental atelectasis at bases bilaterally, small pleural effusions on chest diagnostic studies, and also elevated right hemidiaphragm. Initial blood gases consistent with acute on chronic hypercapnic respiratory failure, most likely. The patient has significantly improved since admission. Currently she is tolerating BiPAP support at night. ABGs done earlier today showed pH of 7.31 with a higher pCO2 level compared to previous ABG. PaO2 higher on a higher EPAP. Om physical exam, she has some crackles at the bases, more on right lung base probably related to elevated diaphragm/ diaphragmatic weakness. The patient's hypercapnic respiratory failure could be related to obesity/ sleep disordered breathing and likely to diaphragm weakness on the right. I would continue with BiPAP support at night and p.r.n. during the day. Add incentive spirometry. D/C neb Pulmicort. continue with short-acting bronchodilators. Out of bed to chair. Hopefully she will be able to stand up to have a x-ray sniff test done regarding right hemidiaphragm elevation. (2) Seizure: Code(s): R56.9 - Unspecified convulsions Status: Acute (3) Atrial fibrillation: Code(s): I48.91 - Unspecified atrial fibrillation Status: Acute (4) Dysphagia: Code(s): R13.10 - Dysphagia, unspecified Status: Acute Subjective Date/time seen: 11/20/21 09:26 patient has no new respiratory symptoms. She slept well last night. Appears fully awake on supplemental oxygen. Review of Systems Review of Systems: All systems reviewed & are unremarkable except as noted in HPI and below Exam Const: Other: GENERAL APPEARANCE: Well developed, well nourished, alert and cooperative, and appears to be in no acute distress While on supplemental oxygen via nasal cannula SKIN: Inspection of the skin reveals no rashes, ulcerations or petechiae. HEENT: Sclerae anicteric and conjunctivae pink and moist. Extraocular movements were intact and pupils were equal. NECK: Supple. There was no thyroid enlargement, and no tenderness, or masses were felt. CHEST: Normal AP diameter and normal contour without any kyphoscoliosis. LUNGS: Auscultation of the lungs revealed normal crackles at bases posteriorly, right worse than left no wheezing CARDIAC: There was a regular rate and rhythm without any murmurs. ABDOMEN: Soft and nontender with normal bowel sounds. There was no organomegaly. LYMPH NODES: No lymphadenopathy was appreciated in the neck. EXTREMITIES: No cyanosis, clubbing or edema. NEUROLOGIC: Alert and oriented x 3. Normal affect. Objective Data Vital Signs Vital Signs: Vital Signs - 24 hr 11/19/21 10:00 11/19/21 12:00 11/19/21 14:00 Temperature 36.1 C L Pulse Rate 80 84 81 Respiratory Rate 15 Blood Pressure 136/95 H Pulse Oximetry 99 11/19/21 14:30 11/19/21 14:45 11/19/21 16:00 Temperature 36.7 C Pulse Rate 76 79 85 Respiratory Rate 16 16 17 Blood Pressure 145/95 H Pulse Oximetry 94 11/19/21 16:46 11/19/21 17:21 11/19/21 17:34 Temperature Pulse Rate 85 85 88 Respiratory Rate 17 Blood Pressure Pulse Oximetry 94 11/19/21 20:00 11/19/21 20:23 11/19/21 20:32 Temperature 36.1 C L Pulse Rate 80 78 82 Respiratory Rate 18 18 18 Blood Pressure 124/76 Pulse Oximetry 94 11/19/21 21:49 11/19/21 22:00 11/19/21 23:20 Temperature Pulse Rate 72 87 87 Respiratory Rate 18 Blood Pressure Pulse Oximetry 92 11/19/21 23:53 11/19/21 23:59 11/20/21 00:00 Temperature 35.4 C L Pulse Rate 80 77 79 Respiratory Rate 17 18 Blood Pressure 157/92 H Pulse Oximetry 97
--- NOTE | 2021-11-20 10:04 | PM.PNCARD ---
Progress Note: A&P Assessment and Plan (1) Paroxysmal A-fib: Code(s): I48.0 - Paroxysmal atrial fibrillation Status: Acute Assessment and Plan: Patient has converted to sinus rhythm. Has good risk of recurrent AFib so recommend ongoing therapy. CHADS2 Vasc score is 6. Recommend chronic anticoagulation. Remains in sinus rhythm DC'd amiodarone and ASA 11/19/2021 Cont IV metoprolol and IV Lovenox while pt is NPO Cont Tele (2) Atrial fibrillation with rapid ventricular response: Code(s): I48.91 - Unspecified atrial fibrillation Status: Acute (3) Acute exacerbation of chronic obstructive airways disease: Code(s): J44.1 - Chronic obstructive pulmonary disease with (acute) exacerbation Status: Acute Assessment and Plan: Improving, now on nasal O2 during the day. (4) Acute diastolic CHF (congestive heart failure): Code(s): I50.31 - Acute diastolic (congestive) heart failure Status: Acute Assessment and Plan: Had acute diastolic heart failure on admission due to hypoxia and AFib RVR, resolved. (5) Anemia: Code(s): D64.9 - Anemia, unspecified Status: Acute Assessment and Plan: Normocytic normochromic anemia. Will need to follow H&H while on anticoagulation. Stable so far. (6) History of CVA (cerebrovascular accident): Code(s): Z86.73 - Personal history of transient ischemic attack (TIA), and cerebral infarction without residual deficits Status: Acute (7) Seizure: Code(s): R56.9 - Unspecified convulsions Status: Acute Assessment and Plan: Had a seizure this admission, on Keppra. Subjective Date/time seen: 11/20/21 10:06 Cardiology follow up for Afib Feeling okay today. Denies any chest pain, palpitations. No complaints. Review of Systems Review of Systems: All systems reviewed & are unremarkable except as noted in HPI and below Constitutional: Constitutional: Reports as per HPI, Reports no additional constitutional complaints, Reports fatigue and Denies headache(s) Eyes: Eyes: Reports as per HPI and Reports no additional eye complaints ENT: Reports system reviewed and no additional complaints, except as documented, Reports as per HPI, Denies headache(s) and Denies epistaxis Cardiovascular: Cardiovascular: Reports as per HPI, Reports no additional cardiovascular complaints, Denies chest pain, Denies leg edema, Denies lightheadedness, Denies palpitations, Reports dyspnea and Reports dyspnea on exertion Respiratory: Respiratory: Reports as per HPI, Reports no additional respiratory complaints, Reports cough, Reports dyspnea and Reports dyspnea on exertion Gastrointestinal: Gastrointestinal: Reports as per HPI, Reports no additional gastrointestinal complaints, Denies abdominal pain, Denies nausea and Denies vomiting Genitourinary: Genitourinary: Reports as per HPI and Denies hematuria Musculoskeletal: Musculoskeletal: Reports no additional musculoskeletal complaints, Reports as per HPI, Reports arthralgias and Reports joint swelling (Patient had fallen prior to admission with painful left knee and bruising) Integumentary/Breasts: Skin/Breast: Reports system reviewed and no additional complaints, except as docu, Reports as per HPI, Reports swelling, Reports erythema, Denies rash and Reports unusual bruising Neurologic: Reports system reviewed and no additional complaints, except as documented, Reports as per HPI, Reports Abnormal speech present, Reports confusion and Denies headache(s) Psychiatric: Psychiatric: Reports no additional psychiatric complaints, Reports as per HPI and Reports confusion Endocrine: Endocrine: Reports no additional endocrine complaints, Reports as per HPI, Reports fatigue and Denies palpitations Hematologic/Lymphatic: Hematologic/Lymphatic: Reports no additional hematologic/lymphatic complaints and Reports as per HPI Allergic/Immunologic: Allergic/Immunologic: Reports no
--- NOTE | 2021-11-20 11:23 | PM.IMPN ---
Progress Note: A&P Assessment and Plan (1) Atrial fibrillation: Code(s): I48.91 - Unspecified atrial fibrillation Status: Acute Assessment and Plan: Post seizure activity patient went to AFib RVR with heart rates in the 130s. -seems to be new onset AFib as patient does not have a history . 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 Moderate nonspecific cerebral white matter disease, which likely represents chronic small vessel ischemic disease. -the frontal chronic encephalomalacia could be the foci for seizures, -neurology has evaluated and agreed with Keppra -no recurrence -continue Keppra 500 mg IV q.12 hours (3) Acute respiratory failure with hypoxia and hypercapnia: Code(s): J96.01 - Acute respiratory failure with hypoxia; J96.02 - Acute respiratory failure with hypercapnia Status: Acute Assessment and Plan: Likely related to pulmonary edema, COPD, CHF -patient received Lasix 40 mg IV x1 in the ER and had adequate urine output -was started on antibiotics with vancomycin and cefepime 11/15/21; complete 7 day course. -11/15: Blood cultures : Preliminary result is negative x2 -11/15 urine cultures negative -continue BiPAP when patient is sleeping -SARS-CoV-2 PCR, influenza A and B are negative -11/18 Chest x-ray showing Airspace opacities in the mid and lower lung zones with worsening on the left, consistent with atelectasis versus pneumonia. -Wean O2 as tolerated - Sniff test showing marked elevation of right hemidiaphragm with delayed and decreased movement of right hemidiaphragm. Unclear on how chronic this finding is. (4) Acute exacerbation of chronic obstructive airways disease: Code(s): J44.1 - Chronic obstructive pulmonary disease with (acute) exacerbation Status: Acute Assessment and Plan: Continue bronchodilators. Pulmonary folllowing and Pulmicort stopped -steroids stopped -continue BiPAP when patient is sleeping -continue supportive O2 as needed; wean off as toelrated - F/u O2 sats (5) Pulmonary edema: Code(s): J81.1 - Chronic pulmonary edema Status: Acute Assessment and Plan: pro BNP 559, Lasix was given -urine output has been adequate, she is in negative fluid balance 11/16: ECHO: Normal LV chamber dimension, LV systolic function is normal with the EF of 65-70%, moderately increased LV wall thickness. Left ventricular diastolic function is indeterminate, left atrial chamber is moderately enlarged, right atrial chamber dimension is severely enlarged, no pulmonary hypertension (6) Anemia: Code(s): D64.9 - Anemia, unspecified Status: Acute Assessment and Plan: Hgb 10 range. f/u H/H (7) Hypothyroidism: Code(s): E03.9 - Hypothyroidism, unspecified Status: Acute Assessment and Plan: Stable. Continue levothyroxine. Change to oral when able to swallow (8) Dysphagia: Code(s): R13.10 - Dysphagia, unspecified Status: Acute Assessment and Plan: Likely due to her old CVA Speech following Repeat swallow eval when okay with Speech therapy, possibly today Subjective Date/time seen: 11/20/21 11:23 Interval history: 81yo female with COPD and HTN who is brought in from the intermediate to the ED for shortness of breath and found to have respiratory failure. Resuming care. Chart reviewed. Patient slept well last night. She denies abdominal pain. She denies s
[2021-11-20 12:22] LABS: Glucose Point of Care 85 mg/dl (65-105)
--- NOTE | 2021-11-20 15:35 | PCSTNOTE ---
Therapist attempted to see patient in the morning for treatment and on both occasions was with another caregiver and not available. Will attempt again today if possible.
[2021-11-20 17:27] LABS: Glucose Point of Care 92 mg/dl (65-105)
[2021-11-21] VITALS (25 sets, daily range): BP systolic 119–150; BP diastolic 67–84; PULSE 67–86; RESP 12–24; TEMP 36.4–36.7; O2SAT 92–98
[2021-11-21 00:08] LABS: Glucose Point of Care 83 mg/dl (65-105)
[2021-11-21 00:17] LABS: Vancomycin Trough 14.1 ug/mL (10.0-20.0)
[2021-11-21] MEDS: METOPROLOL TARTRATE INJ 5 MG/5 ML VIAL 2.5 MG IV PUSH ×3 (00:34→12:45)
[2021-11-21] MEDS: IPRATROPIUM BR 0.02% INH SOLN 0.5 MG/2.5 ML VIAL INHALATION ×4 (02:02→20:10)
[2021-11-21 05:07] LABS: Hematocrit 33.8 % (37.0-47.0); Hemoglobin 9.8 g/dL (12.0-15.0); Mean Corpuscular Hemoglobin 26.8 pg (26-34); Mean Corpuscular Volume 92.3 fl (80-100); Mean Platelet Volume 8.6 fl (7.4-10.4); Platelet Count Result 419 k/mm3 (150-375); Red Blood Count 3.66 M/mm3 (4.2-5.4); Red Cell Distribution Width 20.1 % (11.5-14.5); White Blood Count 9.2 K/mm3 (4.5-10.0)
[2021-11-21 05:21] LABS: Albumin Level 3.2 g/dL (3.5-5.1); Anion Gap 5 mmol/L (8-16); Blood Urea Nitrogen 28 mg/dL (7-17); Calcium 8.2 mg/dL (8.4-10.2); Carbon Dioxide 35 mmol/L (22-30); Chloride 102 mmol/L (98-107); Estimated CRCL calculation 34 ml/min; Estimated Glomerular Filt Rate 36; Glucose 112 mg/dL (65-110); Magnesium 2.4 mg/dL (1.6-2.3); Phosphorus 5.2 mg/dL (2.5-4.5); Potassium 3.7 mmol/L (3.4-5.0); Sodium 142 mmol/L (137-145)
[2021-11-21] MEDS: LEVOTHYROXINE SODIUM INJ 100 MCG/5 ML VIAL 75 MCG IV PUSH (06:07)
[2021-11-21] MEDS: ENOXAPARIN 100 MG/ML SYRINGE 95 MG SUB-Q (08:03)
[2021-11-21] MEDS: PANTOPRAZOLE SODIUM IV 40 MG VIAL IV PUSH (08:04)
[2021-11-21] MEDS: SODIUM CHLORIDE 0.9% IV 1,000 ML 100 ML IV CONT (08:21)
[2021-11-21] MEDS: levETIRAcetam 500MG/NACL 100ML 500 MG/100 ML BAG 400 MG IVPB (08:21)
[2021-11-21 09:10] LABS: Alveolar/Arterial O2 Gradient 38.9 mmHg; Fractional Inspired Oxygen 21 %; Oxygen Content ABG 12.4 %vol (16.0-22.0); Oxygen Saturation ABG 89.2 % (95.0-100.0); PCO2 ABG 46.1 mmHg (35.0-45.0); PO2 ABG 55.6 mmHg (80.0-100.0); PO2 FiO2 Ratio Arterial Blood 2.65 %; Total Hemoglobin 10.2 g/dL (12.0-18.0); pH ABG 7.417 (7.350-7.450)
[2021-11-21 09:11] LABS: Device ROOM AIR; Modified Allen's Test Pass; Site Drawn LEFT RADIAL
--- NOTE | 2021-11-21 10:25 | PM.PNPUL ---
Progress Note: A&P Assessment and Plan (1) Acute respiratory failure with hypoxia and hypercapnia: Code(s): J96.01 - Acute respiratory failure with hypoxia; J96.02 - Acute respiratory failure with hypercapnia Status: Acute Assessment and Plan: 81-year-old female presented with hypercapnic hypoxemic respiratory failure, segmental atelectasis at bases bilaterally, small pleural effusions on chest diagnostic studies, and also elevated right hemidiaphragm. Initial blood gases were consistent with acute on chronic hypercapnic respiratory failure, most likely. The patient has significantly improved since admission. Currently she is tolerating BiPAP support at night. ABGs done earlier today showed pH of 7.41 with lower pCO2 level compared to previous ABG. PaO2 also lower on RA. Fluoroscopy with a sniff test confirmed right diaphragm weakness. Om physical exam, she has some crackles at the bases, more on right lung base probably related to diaphragmatic weakness. The patient's hypercapnic respiratory failure is related to obesity hypoventilation and also to R diaphragm paralysis. In addition to these, the patient has other comorbidities including congestive heart failure, paroxysmal atrial fibrillation, previous CVA. The patient required BiPAP with high pressures and high backup rate during this hospitalization. Patient is a candidate for home noninvasive ventilatory support as this modality has the ability to provide guaranteed minute ventilation with auto EPAP, alarms and an internal battery that home BiPAP lacks the ability to provide. (2) Seizure: Code(s): R56.9 - Unspecified convulsions Status: Acute (3) Atrial fibrillation: Code(s): I48.91 - Unspecified atrial fibrillation Status: Acute (4) Dysphagia: Code(s): R13.10 - Dysphagia, unspecified Status: Acute Subjective Date/time seen: 11/21/21 10:25 Patient has no new respiratory symptoms. Fully awake oriented this a.m., on room air. Used BiPAP support last night. Review of Systems Review of Systems: All systems reviewed & are unremarkable except as noted in HPI and below Exam Const: Other: GENERAL APPEARANCE: Well developed, well nourished, alert and cooperative, and appears to be in no acute distress While on supplemental oxygen via nasal cannula SKIN: Inspection of the skin reveals no rashes, ulcerations or petechiae. HEENT: Sclerae anicteric and conjunctivae pink and moist. Extraocular movements were intact and pupils were equal. NECK: Supple. There was no thyroid enlargement, and no tenderness, or masses were felt. CHEST: Normal AP diameter and normal contour without any kyphoscoliosis. LUNGS: Auscultation of the lungs revealed normal crackles at bases posteriorly, right worse than left no wheezing CARDIAC: There was a regular rate and rhythm without any murmurs. ABDOMEN: Soft and nontender with normal bowel sounds. There was no organomegaly. LYMPH NODES: No lymphadenopathy was appreciated in the neck. EXTREMITIES: No cyanosis, clubbing or edema. NEUROLOGIC: Alert and oriented x 3. Normal affect. Objective Data Vital Signs Vital Signs: Vital Signs - 24 hr 11/20/21 12:00 11/20/21 12:41 11/20/21 14:00 Temperature 36.5 C Pulse Rate 83 83 76 Respiratory Rate 22 H Blood Pressure 152/81 H Pulse Oximetry 94 11/20/21 14:58 11/20/21 15:10 11/20/21 16:00 Temperature 36.4 C Pulse Rate 85 83 84 Respiratory Rate 18 18 18 Blood Pressure 133/67 Pulse Oximetry 92 11/20/21 17:36 11/20/21 18:00 11/20/21 19:25 Temperature Pulse Rate 83 79 Respiratory Rate Blood Pressure Pulse Oximetry 94 11/20/21 19:53 11/20/21 20:00 11/20/21 20:14 Temperature 36.4 C L Pulse Rate 79 75 86 Respiratory Rate 20 Blood Pressure 139/70 Pulse Oximetry 91 11/20/21 20:15 11/20/21 20:23 11/20/21 22:00 Temperature Pulse Rate 86 87 77 Respiratory Rate Blood Pressure Pulse O
--- NOTE | 2021-11-21 10:44 | PCSTNOTE ---
Please refer to the Modified Barium Swallow Evaluation in the EMR.
--- NOTE | 2021-11-21 11:17 | PM.PNCARD ---
Progress Note: A&P Assessment and Plan (1) Paroxysmal A-fib: Code(s): I48.0 - Paroxysmal atrial fibrillation Status: Acute Assessment and Plan: Patient has converted and maintained sinus rhythm. Has good risk of recurrent AFib so recommend ongoing therapy. CHADS2 Vasc score is 6. Recommend chronic anticoagulation. Remains in sinus rhythm DC'd amiodarone and ASA 11/19/2021 Change IV metoprolol to p.o., 25 mg b.i.d. Change Lovenox to Xarelto 15 mg q.p.m. (dose reduced due to acute kidney injury). May need to be increased if renal function improves. Can transfer out of IMU for my point of view (2) Atrial fibrillation with rapid ventricular response: Code(s): I48.91 - Unspecified atrial fibrillation Status: Acute (3) Acute exacerbation of chronic obstructive airways disease: Code(s): J44.1 - Chronic obstructive pulmonary disease with (acute) exacerbation Status: Acute Assessment and Plan: Improving, ow on nasal O2 during the day, sometimes room air. 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 (5) Anemia: Code(s): D64.9 - Anemia, unspecified Status: Acute Assessment and Plan: Normocytic normochromic anemia. Will need to follow H&H while on anticoagulation. Stable so far. (6) History of CVA (cerebrovascular accident): Code(s): Z86.73 - Personal history of transient ischemic attack (TIA), and cerebral infarction without residual deficits Status: Acute (7) Seizure: Code(s): R56.9 - Unspecified convulsions Status: Acute Assessment and Plan: Had a seizure this admission, on Keppra. (8) Acute kidney injury: Code(s): N17.9 - Acute kidney failure, unspecified Status: Acute Assessment and Plan: Creatinine has increased since admission; IV fluid started today and vancomycin has been discontinued. Additional Plan Will see intermittently for the remainder of her stay. Thank you for your kind referral. Subjective Date/time seen: 11/21/21 11:17 Interval history: Follow-up for new onset AFib. Admitted with COPD exacerbation. H/O HTN and strokes. Date of service 11/18/2021: Feels better today. Breathing is better, no pain or palpitations. Converted to sinus rhythm yesterday on IV amiodarone and low-dose metoprolol.. Anticoagulated with Lovenox. On BiPAP overnight, now 2 L.. Echo as below, EF 65-70%, no significant valve disease. DC'd amio and ASA,Continued IV metoprolol and Lovenox since patient failed her swallow study and was NPO. Date of Service 11/19/2021: Patient feels well, still a mild cough, no shortness of breath at rest. BiPAP overnight, now on 2 L O2. Telemetry shows patient has remained in sinus rhythm. Date of service 11/20/2021: Feeling okay today. Denies any chest pain, palpitations. No complaints. Maintaining NSR. Date of service 11/22/2019: Patient says she was very disoriented on admission and confused, not things are clearing up. Does not remember much about her admission. 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 Passed her swallow study today and happy to eat real food food.. Review of Systems Constitutional: Constitutional: Reports no additional constitutional complaints Eyes: Eyes: Reports no additional eye complaints ENT: Denies epistaxis Cardiovascular: Cardiovascular: Denies chest pain, Denies leg edema, Denies lightheadedness, Denies palpitations and Reports dyspnea on exertion Respiratory: Respiratory: Reports cough and Reports dyspnea on exertion Gastrointestinal: Gastrointestinal: Denies abdominal pain Genitourinary: Genitourinary: Denies hematuria Mu
[2021-11-21 12:26] LABS: Glucose Point of Care 96 mg/dl (65-105)
--- NOTE | 2021-11-21 13:31 | PCPTNOTE ---
The patient treatment was not able to be completed at this time due to patient eating lunch. Will plan to continue treatment per plan of care.
--- NOTE | 2021-11-21 13:43 | PM.IMPN ---
Progress Note: A&P Assessment and Plan (1) Acute kidney injury: Code(s): N17.9 - Acute kidney failure, unspecified Status: Acute Assessment and Plan: Cr climbed to 1.4 this morning. Related to abx? Vanco stopped and Zosyn to stop after next dose to complete a 7 day course. Normal saline started x 1 liter given that she is NPO and not on fluids. Also, she had [place] out yesterday so consider urine retention. Check bladder scan. Follow. (2) Atrial fibrillation: Code(s): I48.91 - Unspecified atrial fibrillation Status: Acute Assessment and Plan: Tele showed AFib and EKG confirmed this. No hx of AFib. Was on metoprolol on admission but held due to soft blood pressure. Unclear why she went into AFib. Echo showing EF 65-70% with indeterminate diastolic function and biatrial enlargement. May have intermittent, unrecognized AFib given the Echo findings. Consider PE but admission CTA chest negative for PE. LE dopplers negative for DVT. TSH as noted and slightly low but not felt contributing given the normal FT4. Amiodarone given x 1. She was started on IV metoprolol. She converted to NSR on 11/18. She was changed from therapeutic Lovenox to Xarelto. Metoprolol changed to oral route. Cardiology consulted and appreciate their input. 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 Patient was post-ictal. Keppra was started and remains on Keppra. CT brain showing no acute findings. [place] related to her acute illness and from her old CVAs. Neuro consulted and appreciate their input. Continue seizure precautions. Contineu Keppra and change to oral route (4) Acute respiratory failure with hypoxia and hypercapnia: Code(s): J96.01 - Acute respiratory failure with hypoxia; J96.02 - Acute respiratory failure with hypercapnia Status: Acute Assessment and Plan: Patient developed acute onset of respiratory failure with hypoxia and hypercapnia. Imaging consistent with pulmonary edema. PE ruled out. Unclear if this has been building over the last few days or if more like flash pulmonary edema. Symptoms occurred in the student counselor hours. Consider aspiration from acid reflux and pneumonitis. Consider the development of post-COVID organizing PNA. Consider bacterial PNA and/or COPD exacerbation. UCx negative. BCx negative. Was placed on BiPAP. She had improvement and able to be weaned to room air now. BiPAP to be set up for after discharge. Was started on Vanco and Cefepime (later changed to Zosyn) on 11/15/21. Last day of abx is today. Treated with Solu-Medrol and Lasix but both stopped. CXR on 11/18 showing Airspace opacities in the mid and lower lung zones with worsening on the left, consistent with atelectasis versus pneumonia. Sniff test showing marked elevation of right hemidiaphragm with delayed and decreased movement of right hemidiaphragm. Unclear on how chronic this finding is. Speech therapy did evaluate the patient with MBS and she passed. Appropriate diet ordered. Continue speech therapy. Appreciate Pulmonary input. (5) Acute exacerbation of chronic obstructive airways disease: Code(s): J44.1 - Chronic obstructive pulmonary disease with (acute) exacerbation Status: Acute Assessment and Plan: Patient with COPD listed in her past history and is wheezing but could be 'cardiac asthma'. Wheezing has improved. Solu-Medrol stopped. Continue Xopenex and Atrovent nebs. Pulmicort respules stopped. Appreciate Pulmonary input. Continue supportive care. On room air now. (6) Acute diastolic CHF (congestive heart failure): Code(s): I50.31 - Acute diastolic (congestive) heart failure Status: Acute Assessment and Plan: No pedal edema. BNP 559. CXR concerning for pulmonary edema and she was treated with Lasix with good UOP. Echo as above. Lasix stopped. CXR f
--- NOTE | 2021-11-21 13:57 | PCRCNOTE ---
[facility] being arranged with [facility].
[2021-11-21 14:37] LABS: Anion Gap 6 mmol/L (8-16); Blood Urea Nitrogen 28 mg/dL (7-17); Calcium 8.5 mg/dL (8.4-10.2); Carbon Dioxide 32 mmol/L (22-30); Chloride 103 mmol/L (98-107); Estimated CRCL calculation 34 ml/min; Estimated Glomerular Filt Rate 36; Glucose 124 mg/dL (65-110); Sodium 141 mmol/L (137-145)
[2021-11-21 14:43] LABS: Potassium 3.6 mmol/L (3.4-5.0)
--- NOTE | 2021-11-21 16:39 | PC.NURSE ---
bladder scan 83-96. called to Dr. Barnett
[2021-11-21] MEDS: FERROUS SULFATE 324 MG TABLET PO (17:59)
[2021-11-21] MEDS: RIVAROXABAN 15 MG TABLET PO (17:59)
[2021-11-21 18:17] LABS: Glucose Point of Care 145 mg/dl (65-105)
[2021-11-21] MEDS: METOPROLOL TARTRATE 25 MG TABLET PO (20:29)
[2021-11-21] MEDS: levETIRAcetam 500 MG TABLET PO (20:29)
[2021-11-22] VITALS (26 sets, daily range): BP systolic 103–176; BP diastolic 66–88; PULSE 71–86; RESP 16–20; TEMP 36.1–36.7; O2SAT 91–97
[2021-11-22 00:04] LABS: Glucose Point of Care 138 mg/dl (65-105)
[2021-11-22] MEDS: IPRATROPIUM BR 0.02% INH SOLN 0.5 MG/2.5 ML VIAL INHALATION ×4 (02:18→20:01)
[2021-11-22 05:07] LABS: Basophils Absolute Auto 0.1 K/mm3 (0.0-0.1); Basophils Percent Auto 0.6 % (0.2-1.2); Eosinophils Absolute Auto 0.3 K/mm3 (0-0.3); Eosinophils Percent Auto 3.1 % (0-4.4); Hematocrit 33.1 % (37.0-47.0); Hemoglobin 9.4 g/dL (12.0-15.0); Immature Granulocyte Absolute 0.12 K/mm3 (0.00-0.031); Immature Granulocyte Percent A 1.3 % (0-0.5); Lymphocytes Absolute Auto 0.69 K/mm3 (0.9-3.2); Lymphocytes Percent Auto 7.6 % (18.3-44.2); Mean Corpuscular HGB Conc 28.4 g/dl (32-36); Mean Corpuscular Hemoglobin 26.1 pg (26-34); Mean Corpuscular Volume 91.9 fl (80-100); Mean Platelet Volume 8.6 fl (7.4-10.4); Monocytes Absolute Auto 1.3 K/mm3 (0.1-0.6); Monocytes Percent Auto 14.3 % (2.6-8.5); Neutrophils Absolute Auto 6.6 K/mm3 (1.3-6.7); Neutrophils Percent Auto 73.1 % (45.5-73.1); Platelet Count Result 410 k/mm3 (150-375); Red Cell Distribution Width 20.1 % (11.5-14.5); White Blood Count 9.1 K/mm3 (4.5-10.0)
[2021-11-22 05:13] LABS: Anion Gap 5 mmol/L (8-16); Blood Urea Nitrogen 29 mg/dL (7-17); Calcium 8.2 mg/dL (8.4-10.2); Carbon Dioxide 32 mmol/L (22-30); Chloride 104 mmol/L (98-107); Estimated CRCL calculation 34 ml/min; Estimated Glomerular Filt Rate 36; Glucose 101 mg/dL (65-110); Potassium 3.6 mmol/L (3.4-5.0); Sodium 141 mmol/L (137-145)
[2021-11-22 05:42] LABS: Hypochromasia 1+ (NORMAL); Ovalocytes 1+ (NORMAL); Platelet Estimate Increased (Adequate)
[2021-11-22] MEDS: LEVOTHYROXINE SODIUM 150 MCG TABLET PO (06:28)
--- NOTE | 2021-11-22 09:13 | PM.PNPUL ---
Progress Note: A&P Assessment and Plan (1) Acute respiratory failure with hypoxia and hypercapnia: Code(s): J96.01 - Acute respiratory failure with hypoxia; J96.02 - Acute respiratory failure with hypercapnia Status: Acute Assessment and Plan: 81-year-old female presented with hypercapnic hypoxemic respiratory failure, segmental atelectasis at bases bilaterally, small pleural effusions on chest diagnostic studies, and also elevated right hemidiaphragm. Initial blood gases were consistent with acute on chronic hypercapnic respiratory failure, most likely. The patient has significantly improved since admission. Currently she is tolerating BiPAP support at night. Fluoroscopy with a sniff test confirmed right diaphragm weakness. Om physical exam, she has some crackles at the bases, more on right lung base probably related to diaphragmatic weakness. The patient's hypercapnic respiratory failure is related to obesity hypoventilation and also to R diaphragm paralysis. In addition to these, the patient has other comorbidities including congestive heart failure, paroxysmal atrial fibrillation, previous CVA. The patient required BiPAP with high pressures and high backup rate during this hospitalization. Patient is a candidate for home noninvasive ventilatory support as this modality has the ability to provide guaranteed minute ventilation with auto EPAP, alarms and an internal battery that home BiPAP lacks the ability to provide. Plan is as follows. Continue with current regimen of incentive spirometry, out of bed to chair, BiPAP support at night. Monitor oxyhemoglobin saturation during the day, on and off supplemental oxygen. Await home ventilator approval. She will need apnea link on the home ventilator prior to discharging home. (2) Seizure: Code(s): R56.9 - Unspecified convulsions Status: Acute (3) Atrial fibrillation: Code(s): I48.91 - Unspecified atrial fibrillation Status: Acute (4) Dysphagia: Code(s): R13.10 - Dysphagia, unspecified Status: Acute Subjective Date/time seen: 11/22/21 09:13 Patient has no new respiratory symptoms while breathing ambient air. She used BiPAP support last night for few hours as BiPAP mask came off. Undergoing physical therapy at the bedside. Review of Systems Review of Systems: All systems reviewed & are unremarkable except as noted in HPI and below Exam Const: Other: GENERAL APPEARANCE: Well developed, well nourished, alert and cooperative, and appears to be in no acute distress While on supplemental oxygen via nasal cannula SKIN: Inspection of the skin reveals no rashes, ulcerations or petechiae. HEENT: Sclerae anicteric and conjunctivae pink and moist. Extraocular movements were intact and pupils were equal. NECK: Supple. There was no thyroid enlargement, and no tenderness, or masses were felt. CHEST: Normal AP diameter and normal contour without any kyphoscoliosis. LUNGS: Auscultation of the lungs revealed normal crackles at bases posteriorly, right worse than left no wheezing CARDIAC: There was a regular rate and rhythm without any murmurs. ABDOMEN: Soft and nontender with normal bowel sounds. There was no organomegaly. LYMPH NODES: No lymphadenopathy was appreciated in the neck. EXTREMITIES: No cyanosis, clubbing or edema. NEUROLOGIC: Alert and oriented x 3. Normal affect. Objective Data Vital Signs Vital Signs: Vital Signs - 24 hr 11/21/21 09:57 11/21/21 12:00 11/21/21 12:45 Temperature 36.5 C Pulse Rate 83 79 85 Respiratory Rate 16 Blood Pressure 150/83 H Pulse Oximetry 98 11/21/21 13:01 11/21/21 13:30 11/21/21 14:15 Temperature Pulse Rate 85 83 Respiratory Rate 20 Blood Pressure Pulse Oximetry 92 11/21/21 16:00 11/21/21 18:00 11/21/21 20:00 Temperature 36.7 C 36.6 C Pulse Rate 85 83 81 Respiratory Rate 12 20 Blood Pressure 132/71 122/69 Pulse Oximetry 95 98 11/21/21 20:13
[2021-11-22] MEDS: PANTOPRAZOLE 40 MG TABLET PO (09:22)
[2021-11-22] MEDS: levETIRAcetam 500 MG TABLET PO ×2 (09:22→20:24)
[2021-11-22] MEDS: FERROUS SULFATE 324 MG TABLET PO ×2 (09:22→18:11)
[2021-11-22] MEDS: METOPROLOL TARTRATE 25 MG TABLET PO ×2 (09:22→20:24)
--- NOTE | 2021-11-22 10:03 | PM.IMPN ---
Progress Note: A&P Assessment and Plan (1) Acute kidney injury: Code(s): N17.9 - Acute kidney failure, unspecified Status: Acute Assessment and Plan: Cr climbed to 1.4 yesterday morning. Related to abx? Vanco and Zosyn stopped yesterday after completting a 7 day course. BUN/Cr ratio >20 concern for dehydration so Normal saline started x 1 liter. No evidence of urine retention by bladder scanner. Repeat Cr 1.4 again today. Suspect this will improve with time as she rehydrates herself now that her diet has started. Will follow for now. Further workup if this does not improve as expected. (2) Atrial fibrillation: Code(s): I48.91 - Unspecified atrial fibrillation Status: Acute Assessment and Plan: Tele showed AFib and EKG confirmed this. No hx of AFib. Was on metoprolol on admission but held due to soft blood pressure. Unclear why she went into AFib but felt related to her critical illness. Echo showing EF 65-70% with indeterminate diastolic function and biatrial enlargement. May have intermittent, unrecognized AFib given the Echo findings. Consider PE but admission CTA chest negative for PE and LE dopplers negative for DVT. TSH as noted and slightly low but not felt contributing given the normal FT4. Amiodarone given x 1. She was started on IV metoprolol. She converted to NSR on 11/18. She was changed from therapeutic Lovenox to Xarelto. Metoprolol changed to oral route. Maintaining NSR. Cardiology consulted and appreciate their input. (3) Seizure: Code(s): R56.9 - Unspecified convulsions Status: Acute Assessment and Plan: Patient had seizure-like activity in the punch press feeder hours of 11/16. Patient was post-ictal. Keppra was started and remains on Keppra. CT brain showing no acute findings. [place] related to her acute illness and from her old CVAs. Neuro consulted and appreciate their input. Continue seizure precautions. Continue oral Keppra (4) Acute respiratory failure with hypoxia and hypercapnia: Code(s): J96.01 - Acute respiratory failure with hypoxia; J96.02 - Acute respiratory failure with hypercapnia Status: Acute Assessment and Plan: Patient developed acute onset of respiratory failure with hypoxia and hypercapnia. Imaging consistent with pulmonary edema. PE ruled out. Unclear if this has been building over the last few days or if more like flash pulmonary edema. Symptoms occurred in the punch press feeder hours. Consider aspiration from acid reflux and pneumonitis. Consider the development of post-COVID organizing PNA. Consider bacterial PNA and/or COPD exacerbation. UCx negative. BCx negative. Was placed on BiPAP. She had improvement and able to be weaned to room air now. BiPAP to be set up for after discharge. Was started on Vanco and Cefepime (later changed to Zosyn) on 11/15/21 and completed abx on 11/21. Treated with Solu-Medrol and Lasix but both stopped now. CXR on 11/18 showing Airspace opacities in the mid and lower lung zones with worsening on the left, consistent with atelectasis versus pneumonia. Sniff test showing marked elevation of right hemidiaphragm with delayed and decreased movement of right hemidiaphragm. Unclear on how chronic this finding is. Speech therapy did evaluate the patient with MBS and she passed. She remains on room air now. Appropriate diet ordered. Continue speech therapy. Appreciate Pulmonary input. (5) Acute exacerbation of chronic obstructive airways disease: Code(s): J44.1 - Chronic obstructive pulmonary disease with (acute) exacerbation Status: Acute Assessment and Plan: Patient with COPD listed in her past history and is wheezing but could be 'cardiac asthma'. Wheezing has resolved. Solu-Medrol stopped. Continue Xopenex and Atrovent nebs. Pulmicort respules stopped. Appreciate Pulmonary input. Continue supportive care. On room air now. (6) Acute diastolic CHF (congestive heart failure): Code(s): I50.31 - Acu
[2021-11-22 12:18] LABS: Glucose Point of Care 120 mg/dl (65-105)
[2021-11-22] MEDS: SALIVA SUBSTITUTE RINSE 473 ML BOTTLE 15 ML MUCOUS MEM ×2 (12:35→18:11)
[2021-11-22] MEDS: MIRABEGRON 25 MG ER TABLET PO (12:35)
[2021-11-22 17:43] LABS: Soluble Transferrin Receptor 2.86 mg/L (0.76-1.76)
[2021-11-22] MEDS: RIVAROXABAN 15 MG TABLET PO (18:11)
[2021-11-22 18:27] LABS: Glucose Point of Care 115 mg/dl (65-105)
[2021-11-22] MEDS: ATORVASTATIN 10 MG TABLET PO (20:24)
[2021-11-23] VITALS (24 sets, daily range): BP systolic 113–154; BP diastolic 59–83; PULSE 68–86; RESP 12–24; TEMP 36.7–37.4; O2SAT 90–95
[2021-11-23 00:06] LABS: Glucose Point of Care 114 mg/dl (65-105)
[2021-11-23] MEDS: LEVOTHYROXINE SODIUM 150 MCG TABLET PO (05:17)
[2021-11-23 06:12] LABS: Anion Gap 5 mmol/L (8-16); Blood Urea Nitrogen 24 mg/dL (7-17); Carbon Dioxide 29 mmol/L (22-30); Chloride 105 mmol/L (98-107); Estimated CRCL calculation 43 ml/min; Estimated Glomerular Filt Rate 48; Glucose 109 mg/dL (65-110); Potassium 4.1 mmol/L (3.4-5.0); Sodium 139 mmol/L (137-145)
[2021-11-23] MEDS: IPRATROPIUM BR 0.02% INH SOLN 0.5 MG/2.5 ML VIAL INHALATION ×3 (08:17→20:04)
[2021-11-23] MEDS: FERROUS SULFATE 324 MG TABLET PO ×2 (09:06→17:49)
[2021-11-23] MEDS: levETIRAcetam 500 MG TABLET PO ×2 (09:06→21:07)
[2021-11-23] MEDS: METOPROLOL TARTRATE 25 MG TABLET PO ×2 (09:06→21:06)
[2021-11-23] MEDS: MIRABEGRON 25 MG ER TABLET PO (09:06)
[2021-11-23] MEDS: CHOLECALCIFEROL 1,000 UNITS TABLET 5000 UNITS PO (09:07)
[2021-11-23] MEDS: TAMSULOSIN HCL 0.4 MG CAPSULE PO (09:07)
[2021-11-23] MEDS: PANTOPRAZOLE 40 MG TABLET PO (09:07)
[2021-11-23] MEDS: SALIVA SUBSTITUTE RINSE 473 ML BOTTLE 15 ML MUCOUS MEM ×4 (09:11→21:06)
--- NOTE | 2021-11-23 10:24 | PM.PNPUL ---
Progress Note: A&P Assessment and Plan (1) Acute respiratory failure with hypoxia and hypercapnia: Code(s): J96.01 - Acute respiratory failure with hypoxia; J96.02 - Acute respiratory failure with hypercapnia Status: Acute Assessment and Plan: 81-year-old female presented with hypercapnic hypoxemic respiratory failure, segmental atelectasis at bases bilaterally, small pleural effusions on chest diagnostic studies, and also elevated right hemidiaphragm. Initial blood gases were consistent with acute on chronic hypercapnic respiratory failure, most likely. The patient has significantly improved since admission. Currently she is tolerating BiPAP support at night. Fluoroscopy with a sniff test confirmed right diaphragm weakness. Om physical exam, she has some crackles at the bases, more on right lung base probably related to diaphragmatic weakness. The patient's hypercapnic respiratory failure is related to obesity hypoventilation and also to R diaphragm weakness. In addition to these, the patient has other comorbidities including congestive heart failure, paroxysmal atrial fibrillation, previous CVA. Plan is as follows. Continue with current regimen of incentive spirometry, out of bed to chair, ventilatory support via trilogy ventilator at night at night. I ordered apnea link on a trilogy ventilator for tonight. (2) Seizure: Code(s): R56.9 - Unspecified convulsions Status: Acute (3) Atrial fibrillation: Code(s): I48.91 - Unspecified atrial fibrillation Status: Acute (4) Dysphagia: Code(s): R13.10 - Dysphagia, unspecified Status: Acute Subjective Date/time seen: 11/23/21 10:25 Patient has no new respiratory symptoms. Currently breathing room air while sitting in chair. He she did not sleep well last night. Reportedly was placed on ventilatory support via home ventilator. No apnea link study available. Review of Systems Review of Systems: All systems reviewed & are unremarkable except as noted in HPI and below Exam Const: Other: GENERAL APPEARANCE: Well developed, well nourished, alert and cooperative, and appears to be in no acute distress While on supplemental oxygen via nasal cannula SKIN: Inspection of the skin reveals no rashes, ulcerations or petechiae. HEENT: Sclerae anicteric and conjunctivae pink and moist. Extraocular movements were intact and pupils were equal. NECK: Supple. There was no thyroid enlargement, and no tenderness, or masses were felt. CHEST: Normal AP diameter and normal contour without any kyphoscoliosis. LUNGS: Auscultation of the lungs revealed normal crackles at bases posteriorly, right worse than left no wheezing CARDIAC: There was a regular rate and rhythm without any murmurs. ABDOMEN: Soft and nontender with normal bowel sounds. There was no organomegaly. LYMPH NODES: No lymphadenopathy was appreciated in the neck. EXTREMITIES: No cyanosis, clubbing or edema. NEUROLOGIC: Alert and oriented x 3. Normal affect. Objective Data Vital Signs Vital Signs: Vital Signs - 24 hr 11/22/21 12:00 11/22/21 13:09 11/22/21 13:56 Temperature 36.4 C Pulse Rate 77 81 75 Respiratory Rate 20 18 Blood Pressure 141/78 H Pulse Oximetry 91 11/22/21 14:08 11/22/21 14:31 11/22/21 16:00 Temperature 36.4 C L Pulse Rate 80 81 73 Respiratory Rate 18 20 Blood Pressure 176/88 H Pulse Oximetry 92 97 11/22/21 18:00 11/22/21 19:57 11/22/21 20:00 Temperature 36.4 C Pulse Rate 80 80 75 Respiratory Rate 18 Blood Pressure 151/75 H Pulse Oximetry 96 11/22/21 20:04 11/22/21 20:06 11/22/21 20:10 Temperature Pulse Rate 74 81 Respiratory Rate 18 18 Blood Pressure Pulse Oximetry 94 11/22/21 21:32 11/22/21 22:00 11/22/21 23:42 Temperature 36.1 C L Pulse Rate 77 74 81 Respiratory Rate 18 18 Blood Pressure 103/66 Pulse Oximetry 94 95 11/23/21 00:00 11/23/21 00:58 11/23/21 01:44 Temperature Pul
[2021-11-23 12:35] LABS: Glucose Point of Care 140 mg/dl (65-105)
--- NOTE | 2021-11-23 13:48 | PM.IMPN ---
Progress Note: A&P Assessment and Plan (1) Acute kidney injury: Code(s): N17.9 - Acute kidney failure, unspecified Status: Acute Assessment and Plan: Cr climbed to 1.4 yesterday morning. Related to abx? Vanco and Zosyn stopped 11/21 after completing a 7 day course. BUN/Cr ratio >20 concern for dehydration so Normal saline started x 1 liter. No evidence of urine retention by bladder scanner. Repeat Cr better at 1.1. Will follow for now. Further workup if this does not improve as expected. (2) Atrial fibrillation: Code(s): I48.91 - Unspecified atrial fibrillation Status: Acute Assessment and Plan: Tele showed AFib and EKG confirmed this. No hx of AFib. Was on metoprolol on admission but held due to soft blood pressure. Unclear why she went into AFib but felt related to her critical illness. Echo showing EF 65-70% with indeterminate diastolic function and biatrial enlargement. May have intermittent, unrecognized AFib given the Echo findings. Consider PE but admission CTA chest negative for PE and LE dopplers negative for DVT. TSH as noted and slightly low but not felt contributing given the normal FT4. Amiodarone given x 1. She was started on IV metoprolol. She converted to NSR on 11/18. She was changed from therapeutic Lovenox to Xarelto. Metoprolol changed to oral route. Maintaining NSR. Cardiology following and appreciate their input. (3) Seizure: Code(s): R56.9 - Unspecified convulsions Status: Acute Assessment and Plan: Patient had seizure-like activity in the zigzagger hours of 11/16. Patient was post-ictal. Keppra was started and remains on Keppra. CT brain showing no acute findings. [place] related to her acute illness and from her old CVAs. Neuro consulted and appreciate their input. Continue seizure precautions. Continue oral Keppra (4) Acute respiratory failure with hypoxia and hypercapnia: Code(s): J96.01 - Acute respiratory failure with hypoxia; J96.02 - Acute respiratory failure with hypercapnia Status: Acute Assessment and Plan: Patient developed acute onset of respiratory failure with hypoxia and hypercapnia. Imaging consistent with pulmonary edema. PE ruled out. Unclear if this has been building over the last few days or if more like flash pulmonary edema. Symptoms occurred in the zigzagger hours. Consider aspiration from acid reflux and pneumonitis. Consider the development of post-COVID organizing PNA. Consider bacterial PNA and/or COPD exacerbation. UCx negative. BCx negative. Was placed on BiPAP. She had improvement and able to be weaned to room air now but still requiring the BiPAP for sleep. Was started on Vanco and Cefepime (later changed to Zosyn) on 11/15/21 and completed abx on 11/21. Treated with Solu-Medrol and Lasix but both stopped now. CXR on 11/22 showing mild atelectasis left lung base. Sniff test showing marked elevation of right hemidiaphragm with delayed and decreased movement of right hemidiaphragm. Unclear on how chronic this finding is. Speech therapy did evaluate the patient with MBS and she passed. She remains on room air now and is tolerating the Trelegy at night. Apnea link performed on 11/22/21 on Trelegy and settings adjusted. Appropriate diet ordered. Continue speech therapy. Appreciate Pulmonary input. (5) Acute exacerbation of chronic obstructive airways disease: Code(s): J44.1 - Chronic obstructive pulmonary disease with (acute) exacerbation Status: Acute Assessment and Plan: Patient with COPD listed in her past history and is wheezing but could be 'cardiac asthma'. Wheezing has resolved. Solu-Medrol stopped. Continue Xopenex and Atrovent nebs. Pulmicort respules stopped. Appreciate Pulmonary input. Continue supportive care. On room air now. (6) Acute diastolic CHF (congestive heart failure): Code(s): I50.31 - Acute diastolic (congestive) heart failure Status: Acute Assessment and Plan:
[2021-11-23] MEDS: RIVAROXABAN 15 MG TABLET PO (17:49)
[2021-11-23 18:27] LABS: Glucose Point of Care 118 mg/dl (65-105)
[2021-11-23 20:07] LABS: Glucose Point of Care 120 mg/dl (65-105)
[2021-11-23] MEDS: ATORVASTATIN 10 MG TABLET PO (21:07)
[2021-11-24] VITALS (14 sets, daily range): BP systolic 139–159; BP diastolic 73–77; PULSE 65–85; RESP 18–22; TEMP 36.4–37.3; O2SAT 84–97
--- NOTE | 2021-11-24 05:11 | PCRCNOTE ---
RT found the pulse oximeter sensor detached from the apnea monitor
--- NOTE | 2021-11-24 05:29 | PC.NURSE ---
Pt. stated that she did not want to continue to use the Trilogy/Bipap machine infomed patient that it was to her best advantage and optimal health to continue to wear mask as presribed. Pt. educated that her organs need oxygen to work correctly for her best health. Pt. refused despite the teaching. Mask removed pt. stable and alert.
[2021-11-24] MEDS: LEVOTHYROXINE SODIUM 150 MCG TABLET PO (06:26)
[2021-11-24 08:34] LABS: Glucose Point of Care 88 mg/dl (65-105)
[2021-11-24] MEDS: IPRATROPIUM BR 0.02% INH SOLN 0.5 MG/2.5 ML VIAL INHALATION (08:52)
--- NOTE | 2021-11-24 09:58 | PM.PNPUL ---
Progress Note: A&P Assessment and Plan (1) Acute respiratory failure with hypoxia and hypercapnia: Code(s): J96.01 - Acute respiratory failure with hypoxia; J96.02 - Acute respiratory failure with hypercapnia Status: Acute Assessment and Plan: 81-year-old female presented with hypercapnic hypoxemic respiratory failure, segmental atelectasis at bases bilaterally, small pleural effusions on chest diagnostic studies, and also elevated right hemidiaphragm. Initial blood gases were consistent with acute on chronic hypercapnic respiratory failure, most likely. The patient has significantly improved since admission. Currently she is tolerating BiPAP support at night. Fluoroscopy with a sniff test confirmed right diaphragm weakness. Om physical exam, she has some crackles at the bases, more on right lung base probably related to diaphragmatic weakness. The patient's hypercapnic respiratory failure is related to obesity hypoventilation and also to R diaphragm weakness. In addition to these, the patient has other comorbidities including congestive heart failure, paroxysmal atrial fibrillation, previous CVA. Last night's ApneaLink there was significant improvement of oxyhemoglobin saturation on higher EPAP and supplemental oxygen 4 liters/minute. Plan is as follows. Patient can be discharged from respiratory standpoint. She will continue with home ventilatory support on same settings and supplemental oxygen at 4 liters/minute. Patient will be using oxygen 3 liters/minute with activities as well. Need to re-evaluate the patient in the Outpatient Pulmonary Clinic in approximately 4-6 weeks. (2) Seizure: Code(s): R56.9 - Unspecified convulsions Status: Acute (3) Atrial fibrillation: Code(s): I48.91 - Unspecified atrial fibrillation Status: Acute (4) Dysphagia: Code(s): R13.10 - Dysphagia, unspecified Status: Acute Subjective Date/time seen: 11/24/21 09:58 patient used home ventilator on new settings with higher EPAP and supplemental oxygen 4 liters/minute. Apnea link recorded for smaller period of time. She has no new respiratory symptoms this a.m.. Review of Systems Review of Systems: All systems reviewed & are unremarkable except as noted in HPI and below Exam Const: Other: GENERAL APPEARANCE: Well developed, well nourished, alert and cooperative, and appears to be in no acute distress While on supplemental oxygen via nasal cannula SKIN: Inspection of the skin reveals no rashes, ulcerations or petechiae. HEENT: Sclerae anicteric and conjunctivae pink and moist. Extraocular movements were intact and pupils were equal. NECK: Supple. There was no thyroid enlargement, and no tenderness, or masses were felt. CHEST: Normal AP diameter and normal contour without any kyphoscoliosis. LUNGS: Auscultation of the lungs revealed normal crackles at bases posteriorly, right worse than left no wheezing CARDIAC: There was a regular rate and rhythm without any murmurs. ABDOMEN: Soft and nontender with normal bowel sounds. There was no organomegaly. LYMPH NODES: No lymphadenopathy was appreciated in the neck. EXTREMITIES: No cyanosis, clubbing or edema. NEUROLOGIC: Alert and oriented x 3. Normal affect. Objective Data Vital Signs Vital Signs: Vital Signs - 24 hr 11/23/21 10:00 11/23/21 12:00 11/23/21 13:50 Temperature 36.9 C Pulse Rate 80 83 76 Respiratory Rate 22 H 18 Blood Pressure 113/59 L Pulse Oximetry 94 11/23/21 14:00 11/23/21 14:01 11/23/21 16:00 Temperature 37.4 C Pulse Rate 76 78 80 Respiratory Rate 18 22 H Blood Pressure 146/81 H Pulse Oximetry 94 11/23/21 18:00 11/23/21 20:00 11/23/21 20:05 Temperature 36.8 C Pulse Rate 85 84 Respiratory Rate 19 Blood Pressure 140/73 Pulse Oximetry 92 90 11/23/21 20:06 11/23/21 20:15 11/23/21 21:06 Temperature Pulse Rate 83 80 84 Respiratory Rate 18 18 Blood Pressure Pulse Oximetry
[2021-11-24] MEDS: PANTOPRAZOLE 40 MG TABLET PO (09:59)
[2021-11-24] MEDS: levETIRAcetam 500 MG TABLET PO (09:59)
[2021-11-24] MEDS: METOPROLOL TARTRATE 25 MG TABLET PO (09:59)
[2021-11-24] MEDS: CYANOCOBALAMIN 1,000 MCG TABLET 1000 MCG PO (09:59)
[2021-11-24] MEDS: TAMSULOSIN HCL 0.4 MG CAPSULE PO (09:59)
[2021-11-24] MEDS: FERROUS SULFATE 324 MG TABLET PO (09:59)
[2021-11-24] MEDS: CHOLECALCIFEROL 1,000 UNITS TABLET 5000 UNITS PO (10:00)
[2021-11-24] MEDS: polyethylene glycoL 3350 17 GM POWD.PACK PO (10:01)
[2021-11-24] MEDS: SALIVA SUBSTITUTE RINSE 473 ML BOTTLE 15 ML MUCOUS MEM (10:04)
[2021-11-24 11:58] LABS: Glucose Point of Care 114 mg/dl (65-105)
--- NOTE | 2021-11-24 13:03 | PM.DS ---
DS: Admitting Diagnosis Discharge Date 11/24/21 Admitting Diagnosis Shortness of breath DS: Discharge Diagnosis Discharge Diagnosis (1) Acute kidney injury: Code(s): N17.9 - Acute kidney failure, unspecified Status: Acute Assessment and Plan: Cr climbed to 1.4 possibly related to abx. Vanco and Zosyn stopped 11/21 after completing a 7 day course. BUN/Cr ratio >20 concern for dehydration so Normal saline started x 1 liter. No evidence of urine retention by bladder scanner. Repeat Cr better at 1.1. (2) Atrial fibrillation: Code(s): I48.91 - Unspecified atrial fibrillation Status: Acute Assessment and Plan: Tele showed AFib and EKG confirmed this. No hx of AFib. Was on metoprolol on admission but held due to soft blood pressure. Unclear why she went into AFib but felt related to her critical illness. Echo showing EF 65-70% with indeterminate diastolic function and biatrial enlargement. May have intermittent, unrecognized AFib given the Echo findings. Consider PE but admission CTA chest negative for PE and LE dopplers negative for DVT. TSH as noted and slightly low but not felt contributing given the normal FT4. Amiodarone given x 1. She was started on IV metoprolol. She converted to NSR on 11/18. She was changed from therapeutic Lovenox to Xarelto. Metoprolol changed to oral route. Maintaining NSR. Cardiology following and appreciated their input. 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 Patient was post-ictal. Keppra was started and remains on Keppra. CT brain showing no acute findings. [place] related to her acute illness and from her old CVAs. Neuro consulted and appreciate their input. We continued oral Keppra. Follow up with Neurology (4) Acute respiratory failure with hypoxia and hypercapnia: Code(s): J96.01 - Acute respiratory failure with hypoxia; J96.02 - Acute respiratory failure with hypercapnia Status: Acute Assessment and Plan: Patient developed acute onset of respiratory failure with hypoxia and hypercapnia noted by ABG 7.//95. Imaging consistent with pulmonary edema. PE ruled out. Unclear if this has been building over the last few days or if more like flash pulmonary edema. Symptoms occurred in the pressure tank operator hours. Consider aspiration from acid reflux and pneumonitis. Consider the development of post-COVID organizing PNA. Consider bacterial PNA and/or COPD exacerbation. UCx negative. BCx negative. Was placed on BiPAP. She had improvement and able to come off the BiPAP and eventually weaned to room air. She continued BiPAP for sleep and pulmonary followed and titrated the settings. She was started on Vanco and Cefepime (later changed to Zosyn) on 11/15/21 and completed abx. Treated with Solu-Medrol and Lasix but both stopped now. CXR on 11/22 showing mild atelectasis left lung base. Sniff test showing marked elevation of right hemidiaphragm with delayed and decreased movement of right hemidiaphragm. Unclear on how chronic this finding is but felt contributing to her respiratory issues. Speech therapy did evaluate the patient with MBS and she did well but did require thickener. Toward the end of her hospitalization, it was discovered patient has Sjogren's syndrome which may be contributing to her lung disease. Toggle Press Folder And Feeder was wear this as well. She remains on room air while awake and is tolerating the Trelegy at sleep. (5) Acute exacerbation of chronic obstructive airways disease: Code(s): J44.1 - Chronic obstructive pulmonary disease with (acute) exacerbation Status: Acute Assessment and Plan: Patient with COPD listed in her past history and is wheezing but could be 'cardiac asthma'. Wheezing has resolved. Treated with Solu-Medrol but steroids stopped now. Also treated with Xopenex and Atrovent nebs but ultimate
[2021-11-24 15:25] LABS: EDCOVIDSCREEN Positive (Negative)
== END 2021-11-24 16:20 | DRG 193 ==
LOC: ANHED 07:44 → ANHICU 11-16 10:49 → ANHIMU 11-20 11:08 → ANH3MED 11-27 09:37 → ANHICU 11-27 09:37 → ANHIMU 11-27 09:37
PROVIDERS: Internal Medicine; Internal Medicine Pulmonary Disease; Nurse Practitioner Adult Health; Admitting Provider Internal Medicine; Emergency Provider General Practice; Visit Provider Internal Medicine
DX: J18.9 Pneumonia, unspecified organism (principal); J96.22 Acute and chronic respiratory failure with hypercapnia; U07.1 COVID-19; I50.31 Acute diastolic (congestive) heart failure; J96.01 Acute respiratory failure with hypoxia; E66.2 Morbid (severe) obesity with alveolar hypoventilation; J81.1 Chronic pulmonary edema; N17.9 Acute kidney failure, unspecified; J44.0 Chronic obstructive pulmonary disease with (acute) lower respiratory infection; J44.1 Chronic obstructive pulmonary disease with (acute) exacerbation; U09.9 Post COVID-19 condition, unspecified; J98.6 Disorders of diaphragm; Z66 Do not resuscitate; E78.5 Hyperlipidemia, unspecified; Z79.82 Long term (current) use of aspirin; Z85.3 Personal history of malignant neoplasm of breast; K21.9 Gastro-esophageal reflux disease without esophagitis; E03.9 Hypothyroidism, unspecified; I11.0 Hypertensive heart disease with heart failure; D64.9 Anemia, unspecified; R13.10 Dysphagia, unspecified; G93.89 Other specified disorders of brain; R10.32 Left lower quadrant pain; R56.9 Unspecified convulsions; D51.9 Vitamin B12 deficiency anemia, unspecified; I69.991 Dysphagia following unspecified cerebrovascular disease; Z87.891 Personal history of nicotine dependence; I48.0 Paroxysmal atrial fibrillation; Z68.31 Body mass index [BMI] 31.0-31.9, adult; M35.00 Sjogren syndrome, unspecified
CPT/HCPCS: 36415; 36600; 51701; 70450; 71045; 71046; 71275; 74176; 76000; 80048; 80053; 80069; 80202; 81001; 82375; 82607; 82728; 82746; 82805; 82948; 83050; 83540; 83550; 83735; 83880; 84100; 84238; 84439; 84443; 84480; 84484; 85025; 85027; 85610; 85730; 87040; 87086; 87426; 87502; 92526; 92610; 92611; 93005; 93970; 94002; 94003; 94640; 94762; 96374; 97110; 97163; 97166; 97530; 97535; 99285; A9270; C8929; C9113; C9803; J0282; J0692; J1650; J1756; J1815; J1940; J1953; J2543; J2920; J2930; J3370; J3420; J7030; Q9957; Q9967; U0003; U0005

== ENCOUNTER 2021-12-25 10:20 | Emergency (ER) | payer MEDICARE, SELFPAY ==
[2021-12-25] VITALS (23 sets, daily range): BP systolic 109–138; BP diastolic 66–105; PULSE 73–84; RESP 14–29; TEMP 36.6; O2SAT 86–93
--- NOTE | ~2021-12-25 | XR_ITS ---
EXAMINATION: XR chest 1V portable DATE: 12/25/2021 13:12 INDICATION: Cough and congestion. TECHNIQUE: A single frontal view of the chest was obtained. COMPARISON: Chest 2 views 11/22/2021, CT abdomen and pelvis 11/16/2021 FINDINGS: A calcified left lung nodule and calcified left hilar and mediastinal lymph nodes are consi stent with old granulomatous disease. There is mild atelectasis in the lower lung zones. No pleural e ffusion or pneumothorax. Cardiomegaly is noted. There are surgical clips in right axilla. IMPRESSION: 1. Mild atelectasis in the lower lung zones. 2. Cardiomegaly. Reviewed, dictated and finalized at location B.
--- NOTE | ~2021-12-25 | XR_ITS ---
EXAMINATION: XR tibia fibula LT 2V, XR ankle LT min 3V EXAM DATE: 12/25/2021 11:13 (accession [id number]), 12/25/2021 11:12 (accession [id number]) INDICATION: Fall, left ankle, tibia-fibula pain. TECHNIQUE: Left ankle frontal, lateral and oblique projections obtained and reviewed. Left tibia/fibu la frontal and lateral projections obtained and reviewed. There is no prior study for comparison. FINDINGS: There is a left tibial intramedullary jaja bridging a distal metaphyseal fracture site witho ut osseous fusion, at least some of the fracture margins appear well-corticated. Please correlate wit h the date of insertion of this hardware for possibility of osseous nonunion. The distal screws suppo rting this intramedullary jaja are both fractured. There is also lucency through the tibial plafond which is suspicious for a super imposed acute fractu re with about 2 mm gap, finding indicated. There is distal fibular metaphyseal plate and supporting screws which are intact. This was likely shayla dging a healed fibular fracture. Acute mildly comminuted fracture of the midshaft left fibula with up to about 5 mm displacement. The ankle mortise appears intact. 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 Small inferior ca lcaneal spur. IMPRESSION: 1. Acute comminuted left mid fibular fracture. 2. Tibial plafond fracture which could be acute. 3. Tibial intramedullary jaja with distal screw fractures. No osseous fusion of distal metaphyseal fr acture it is bridging. 4. Distal fibular hardware intact. Reviewed, dictated and finalized at location A. IMPRESSION: 1. Acute comminuted left mid fibular fracture. 2. Tibial plafond fracture which could be acute. 3. Tibial intramedullary jaja with distal screw fractures. No osseous fusion of distal metaphyseal fracture it is bridging. 4. Distal fibular hardware intact.
--- NOTE | 2021-12-25 13:47 | ED.LOWEXIN ---
HPI - Extremity Injury (Lower) General Chief Complaint: Extremity Injury, Lower Stated Complaint: left leg injury Time Seen by Provider: 12/25/21 10:25 Source: RN notes reviewed History of Present Illness HPI Narrative: Patient presents emergency department from [facility] via EMS for left leg fracture. History is limited as the patient is a poor historian the patient was noted to have fallen on Saturday and had x-rays of her right leg at that time she is complained of right leg pain those x-rays were negative and patient had no complaints until she began to complain of left lower leg pain today. Patient does stand pivot between her wheelchair in her bed and she does do this on her own but there is no known history of a fall patient states she is unsure how she hurt her leg she has no other injuries she is currently awake and alert x1 the patient is chronically on oxygen per [facility] records 2 to 5 L oxygen saturation greater than 90% and is currently on Xarelto Related Data Home Medications Medication Instructions Recorded Confirmed Biotene Dry Mouth Oral Rinse 15 ml MUCOUS MEMBRANE QID 11/15/21 11/15/21 Fleet Enema 1 applic DAILY PRN 11/15/21 11/15/21 Myrbetriq 25 mg PO DAILY 11/15/21 11/15/21 acetaminophen 500 mg PO Q8H PRN 11/15/21 11/15/21 amlodipine 5 mg PO DAILY 11/15/21 11/15/21 atorvastatin [Lipitor] 10 mg PO HS 11/15/21 11/15/21 bisacodyl 10 mg RECTAL DAILY PRN 11/15/21 11/15/21 calcium carbonate-vitamin D3 1 tablet PO DAILY 11/15/21 11/15/21 cholecalciferol (vitamin D3) 5,000 unit PO DAILY 11/15/21 11/15/21 levothyroxine 150 mcg PO DAILY 11/15/21 11/15/21 magnesium hydroxide [Milk of 30 ml PO HS PRN 11/15/21 11/15/21 Magnesia] metoprolol succinate 50 mg PO DAILY 11/15/21 11/15/21 polyethylene glycol 17 g PO DAILY 11/15/21 11/15/21 tamsulosin [Flomax] 0.4 mg PO DAILY 11/15/21 11/15/21 Allergies Allergy/AdvReac Type Severity Reaction Status Date / Time codeine Allergy Unknown Verified 11/15/21 14:46 Review of Systems Review of Systems: Gen.: Denies fevers or chills ENT: Denies congestion Respiratory: Denies shortness of breath or cough CV: Denies chest pain or palpitations GI: Denies abdominal pain nausea, emesis Musculoskeletal: See HPI Neuro: Denies numbness, tingling, weakness or focal weakness Skin: Denies rash Except as documented, all other systems reviewed and negative [facility] Past Medical History Medical History Breast cancer Right breast Dysphagia Emphysema/COPD GERD (gastroesophageal reflux disease) History of CVA (cerebrovascular accident) 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 She states she is lifelong nonsmoker. . DNR status. Aaron Hernandez, son, listed as Emergency Contact . Dr Salmon listed as the PCP. Smoking status: Unknown if ever smoked Alcohol intake: unknown Substance use: unknown Spiritual care concerns: No Exam Narrative: APPEARANCE: No acute distress, nontoxic, resting in bed EYES: EOMI HEENT: Normocephalic, atraumatic, OMM RESPIRATORY: No respiratory distress Clear to auscultation bilaterally with no rhonchi wheezing or rales. CARDIOVASCULAR: Regular rate and rhythm without murmurs rubs or gallops. ABDOMINAL: Soft, nontender, nondistended, no rebound or guarding MUSCULOSKELETAl: No clubbing, cyanosis or edema. Tender to palpation over the left mid and lower lateral ankles mild swellin
== END 2021-12-25 14:45 ==
PROVIDERS: Emergency Provider Emergency Medicine; PCP Family Medicine
DX: S82.452A Displaced comminuted fracture of shaft of left fibula, initial encounter for closed fracture (principal); J43.9 Emphysema, unspecified; E78.5 Hyperlipidemia, unspecified; I10 Essential (primary) hypertension; E03.9 Hypothyroidism, unspecified; I48.0 Paroxysmal atrial fibrillation; K21.9 Gastro-esophageal reflux disease without esophagitis; Z79.01 Long term (current) use of anticoagulants; Z85.3 Personal history of malignant neoplasm of breast; Z86.73 Personal history of transient ischemic attack (TIA), and cerebral infarction without residual deficits; Z99.81 Dependence on supplemental oxygen; Z66 Do not resuscitate; I51.7 Cardiomegaly; X58.XXXA Exposure to other specified factors, initial encounter
CPT/HCPCS: 29515; 71045; 73590; 73610; 96365; 96366; 99284; J0131

== ENCOUNTER 2022-01-06 19:50 | Inpatient (IN) | payer MEDICARE, MEDICAID, SELFPAY ==
[2022-01-06] VITALS (7 sets, daily range): BP systolic 98–129; BP diastolic 59–64; PULSE 86–94; RESP 16–22; TEMP 36.3–36.9; O2SAT 96–98; BMI 33.3
--- NOTE | ~2022-01-06 | XR_ITS ---
EXAMINATION: XR chest 1V portable Exam Date/Time: 01/06/2022 20:05 CDT CLINICAL HISTORY: sob, HX COPD, HX CHF Comparison: None available. RESULT: Lines, tubes, and devices: Right axillary clips.. Lungs and pleura: Low lung volumes. Bronchovascular crowding. Patchy bilateral mid and lower lung op acities. Cardiomediastinal silhouette: Stable cardiomediastinal silhouette. Other: No acute osseous or upper abdominal finding. IMPRESSION: Pulmonary opacities may reflect atelectasis from low lung volumes, edema, or infection. Reviewed, dictated and finalized at location K. IMPRESSION: Pulmonary opacities may reflect atelectasis from low lung volumes, edema, or in fection.
--- NOTE | ~2022-01-06 | XR_ITS ---
XR abdomen/kub 1V DATE: 01/07/2022 11:39 INDICATION: Possible bowel obstruction TECHNIQUE: Portable supine AP views of the abdomen and pelvis COMPARISON: 11/16/2021 CT abdomen pelvis FINDINGS: Bilateral pulmonary infiltrates are noted, particularly in the lower lung zones. There is c ardiomegaly. There is aortic calcification. There is a prominent amount of fecal material in the rectum and colon. There is no evidence of bowel obstruction. Calcified uterine fibroids. There is barium within some diverticula of left and right colon. Scoliosis and prominent degenerative change of the thoracic and lumbar spine. IMPRESSION: Left and right colon diverticulosis Mildly prominent of fecal material in the rectum and colon; no bowel obstruction is evident Cardiomegaly Bilateral pulmonary infiltrates Reviewed, dictated and finalized at Location A. Reviewed, dictated and finalized at location A. IMPRESSION: Left and right colon diverticulosis Mildly prominent of fecal material in the rectum and colon; no bowel obstructio n is evident Cardiomegaly Bilateral pulmonary infiltrates
--- NOTE | 2022-01-06 19:57 | ECG_ITS ---
Measurements Intervals Parker Rate: 89 P: 5 TN: 177 QRS: 73 QRSD: 89 T: 30 QT: 349 QTc: 425 Interpretive Statements SINUS RHYTHM INCOMPLETE RIGHT BUNDLE BRANCH BLOCK DELAYED PRECORDIAL R/S TRANSITION LOW QRS VOLTAGE IN PRECORDIAL LEADS CONSIDER INFERIOR INFARCT, AGE INDETERMINATE BORDERLINE T WAVE ABNORMALITY- ANTERIOR LEADS ABNORMAL ECG Electronically Signed On 01-07-2022 6:35:35 CDT by Shemar Rodriguez D.O.
--- NOTE | 2022-01-06 20:01 | ED.SOB ---
HPI - SOB/Dyspnea General Chief Complaint: Shortness of Breath/Dyspnea Stated Complaint: respiratory distress x 1 day Time Seen by Provider: 01/06/22 19:51 History of Present Illness HPI Narrative: pt at [facility] for rehab post left ankle surgery and sob today pt says around sick contacts and still smoking, has copd and chf didn't get covid vaccine and did get flu shot no cp says lef tleg swollen since surgery and on xarelto. no f/abd pain/urine chagnes/nv/d or new trauma/neuro chagnes. Related Data Allergies Allergy/AdvReac Type Severity Reaction Status Date / Time codeine Allergy Unknown Verified 01/06/22 20:05 Review of Systems Review of Systems: CONSTITUTIONAL: Denies fever, chills, or sweats. EYES: Denies visual changes, redness, or discharge. ENT: Denies rhinorrhea, congestion, sore throat, or otalgia. CARDIOVASCULAR: Denies chest pain, palpitations, or edema. RESPIRATORY: has sob and cough GASTROINTESTINAL: Denies abdominal pain, nausea, vomiting, or diarrhea. GENITOURINARY: Denies dysuria or hematuria. SKIN: Denies rash or itching. MUSCULOSKELETAL: Denies back pain, joint pain, or myalgia. NEUROLOGIC: Denies headache, numbness, or weakness. PSYCHIATRIC: Denies anxiety or depression. Exam Narrative: APPEARANCE: Well appearing, no pain in distress, well-nourished. Head normocephalic atraumtaic. EYES: PERRLA/EOMI, conjunctivae very clear. NOSE: Normal no drainage EARS:TMS clear Annmarie Day, with good light reflex. THROAT: Pharynx clear, no exudate. NECK: Supple. No adenopathy, no masses. RESPIRATORY: Airway patent, repsirations nonlabored. decreased b/l CARDIOVASCULAR: Regular rate and rhythm without murmurs rubs or gallops. ABDOMINAL: Soft, nontender, nondistended, no hepatosplenomegally MUSCULOSKELETAl: Moves all extremities. Strenght/ROM intact, No edema, No calf tenderness. has nonpitting swelling left leg and in walking boot no s/s compartment syndrome good cap refill and temp to toes NEURO: Alert. Cranial nerves II through XII intact. Good coordination globally weak SKIN:: Warm, dry. Normal Color PSYCHIATRIC: Normal affect/mood, normal interaction with parents. Course Course Emergency Course: adding bipap at 2034 due to abg results discussed wiht resp tech Reevaluation(s) Reevaluation #1: pt waking up more, resp in room pulling good volumes on bipap pt fine with admssion calling hospitalist dr jurado-acceptkellie at 2134 Date: 01/06/22 Time: 21:21 Reevaluation #2: bp 121/76 improved with fluids, has abx, bipap and getting admitted sats 98% hr 84 Date: 01/06/22 Time: 21:35 Vital Signs Vital signs: Vital Signs Temperature 36.9 C 01/06/22 19:48 Pulse Rate 91 01/06/22 19:48 Respiratory Rate 16 01/06/22 19:48 Blood Pressure 129/61 01/06/22 19:48 Pulse Oximetry 98 01/06/22 19:48 Temperature 36.9 C 01/06/22 19:48 Pulse Rate 90 01/06/22 21:15 Respiratory Rate 22 H 01/06/22 21:15 Blood Pressure 129/61 01/06/22 19:48 Pulse Oximetry 98 01/06/22 20:25 MDM - SOB/Dyspnea Differential Diagnosis Differential diagnosis: Likely acute exacerbation of chronic obstructive airways disease, congestive heart failure, community acquired pneumonia, pulmonary embolism and other (sepsis) Medical Records Attestation: I reviewed the patient's medical records. Lab Data Attestation: I reviewed the patient's lab results. Result diagrams: 01/06/22 20:22 01/06/22 20:22 Labs: Lab Results 01/06/22 01/06/22 01/06/22 Range/Units 20:21 20:22 20:22 WBC 14.2 H (4.5-10.0) K/mm3 RBC 3.84 L (4.2-5.4) M/mm3 Hgb 10.4 L (12.0-15.0) g/dL Hct 37.8 (37.0-47.0) % MCV 98.4 (80-100) fl MCH 27.1 (26-34) pg MCHC 27.5 L (32-36) g/dl RDW 19.6 H (11.5-14.5) % Plt Count 579 H (150-375) k/mm3 MPV 8.4 (7.4-10.4) fl Immature Gran % (Auto) 1.3 H (0-0.5) % Neut % (Auto) 83.8 H (45.5-73.1) % Lymph % (Auto) 5.1 L (18.3-44.2) % [place] % (Auto) 9.3
[2022-01-06] MEDS: ALBUTEROL SULFATE NEB 2.5 MG/0.5 ML INH INHALATION (20:24)
[2022-01-06 20:30] LABS: Basophils Percent Auto 0.3 % (0.2-1.2); Eosinophils Percent Auto 0.2 % (0-4.4); Hematocrit 37.8 % (37.0-47.0); Hemoglobin 10.4 g/dL (12.0-15.0); Immature Granulocyte Absolute 0.19 K/mm3 (0.00-0.031); Immature Granulocyte Percent A 1.3 % (0-0.5); Lymphocytes Absolute Auto 0.73 K/mm3 (0.9-3.2); Lymphocytes Percent Auto 5.1 % (18.3-44.2); Mean Corpuscular HGB Conc 27.5 g/dl (32-36); Mean Corpuscular Hemoglobin 27.1 pg (26-34); Mean Corpuscular Volume 98.4 fl (80-100); Mean Platelet Volume 8.4 fl (7.4-10.4); Monocytes Absolute Auto 1.3 K/mm3 (0.1-0.6); Monocytes Percent Auto 9.3 % (2.6-8.5); Neutrophils Absolute Auto 11.9 K/mm3 (1.3-6.7); Neutrophils Percent Auto 83.8 % (45.5-73.1); Nucleated Red Blood Cells Perc 0.1 % (0.0-0.2); Platelet Count Result 579 k/mm3 (150-375); Red Blood Count 3.84 M/mm3 (4.2-5.4); Red Cell Distribution Width 19.6 % (11.5-14.5); White Blood Count 14.2 K/mm3 (4.5-10.0)
[2022-01-06 20:31] LABS: Alveolar/Arterial O2 Gradient 541.2 mmHg; Base Excess ABG 5.4 mEq/l (+/-2.0); Fractional Inspired Oxygen 100 %; HCO3 ABG 35.8 mEq/l (22.0-26.0); Oxygen Saturation ABG 91.9 % (95.0-100.0); Oxyhemoglobin 91.6 % THb (90.0-100.0); PO2 ABG 78.6 mmHg (80.0-100.0); PO2 FiO2 Ratio Arterial Blood 0.79 %; Total Hemoglobin 10.8 g/dL (12.0-18.0)
[2022-01-06 20:35] LABS: Device NON-REBREATHER MASK; Modified Allen's Test Unable to perform; PCO2 ABG 93.2 mmHg (35.0-45.0); Site Drawn RIGHT RADIAL; pH ABG 7.202 (7.350-7.450)
[2022-01-06 20:38] LABS: Lactic Acid Reflex 0.7 mmol/L (0.7-2.0)
[2022-01-06 20:41] LABS: INR 1.3; Prothrombin Time 15.8 Seconds (11.1-14.7)
[2022-01-06 20:42] LABS: Partial Thromboplastin Time 45.1 SECONDS (22.3-36.8)
[2022-01-06 20:47] LABS: Alanine Aminotransferase 10 U/L (4-35); Albumin Level 3.6 g/dL (3.5-5.1); Alkaline Phosphatase 80 U/L (38-126); Aspartate Amino Transferase 23 U/L (14-36); Bilirubin,Total 0.5 mg/dL (0.2-1.3); Blood Urea Nitrogen 27 mg/dL (7-17); Calcium 8.1 mg/dL (8.4-10.2); Carbon Dioxide > 40 mmol/L (22-30); Chloride 97 mmol/L (98-107); Estimated CRCL calculation 42 ml/min; Estimated Glomerular Filt Rate 60; Glucose 111 mg/dL (65-110); Magnesium 2.3 mg/dL (1.6-2.3); Potassium 5.2 mmol/L (3.4-5.0); Sodium 140 mmol/L (137-145)
[2022-01-06 20:49] LABS: NT Pro B Type Natriuretic Pept 1460 pg/mL (5-100)
[2022-01-06 20:56] LABS: CRP 13.2 mg/dL (<1.0)
[2022-01-06 21:19] LABS: Influenza A QL RT-PCR Negative (Negative); Influenza B QL RT-PCR Negative (Negative); SARS-CoV-2 RNA PCR Negative
--- NOTE | 2022-01-06 21:40 | PM.IMHP ---
H&P: HPI History of Present Illness Date/Time: 01/06/22 21:40 Chief Complaint: Shortness of breath. Narrative: This is a 81-year-old female with past medical history significant for COPD/emphysema, tobacco dependence, congestive heart failure, recent left ankle surgery patient was rehabilitation facility she was brought to the emergency room due to worsening shortness of breath. At the time of my visit patient was on BiPAP on obtunded most of the history has been obtained upon reviewing medical records and emergency room doctor. Patient with severe respiratory distress upon arrival to emergency room altered mental status placed on BiPAP initial ABG showed a pCO2 of 93 with a pH of 7.2 PO2 of 78. Patient has been on anticoagulation with Xarelto. A chest x-ray showed infiltrate bilateral and diffuse. Patient tested negative for influenza a and B and COVID. Patient is been admitted for further evaluation, management and treatment. Review of Systems Review of Systems: ROS unobtainable: Yes unobtainable due to medical condition (Respiratory failure on BiPAP.) [facility] Social History Social History Smoking status: Unknown if ever smoked Alcohol intake: unknown Substance use: unknown Substance use type: unknown Spiritual care concerns: No Meds Home Medications and Allergies Home Medications Medication Instructions Recorded Confirmed Type acetaminophen 500 mg PO Q8H PRN 01/06/22 01/06/22 History amlodipine 5 mg PO DAILY 01/06/22 01/06/22 History atorvastatin [Lipitor] 10 mg PO DAILY 01/06/22 01/06/22 History calcium carbonate-vit D3-min 1 tablet PO DAILY 01/06/22 01/06/22 History cholecalciferol (vitamin D3) 5,000 unit PO DAILY 01/06/22 01/06/22 History [Vitamin D3] cyanocobalamin (vitamin B-12) 1,000 mcg PO DAILY 01/06/22 01/06/22 History ferrous sulfate 325 mg PO BID 01/06/22 01/06/22 History levalbuterol HCl 1.25 mg INHALATION Q6H PRN 01/06/22 01/06/22 History levetiracetam 500 mg PO BID 01/06/22 01/06/22 History levothyroxine 150 mcg PO DAILY 01/06/22 01/06/22 History magnesium citrate 296 ml PO DAILY PRN 01/06/22 01/06/22 History metoprolol succinate 50 mg PO DAILY 01/06/22 01/06/22 History mirabegron [Myrbetriq] 50 mg PO DAILY 01/06/22 01/06/22 History pantoprazole [Protonix] 40 mg PO QAM 01/06/22 01/06/22 History polyethylene glycol 1 ea MISCELLANEOUS DAILY 01/06/22 01/06/22 History rivaroxaban [Xarelto] 15 mg PO DAILY 01/06/22 01/06/22 History saliva substitute combo no.9 15 ml PO Q3H PRN 01/06/22 01/06/22 History [Biotene Dry Mouth Oral Rinse] tamsulosin 0.4 mg PO DAILY 01/06/22 01/06/22 History tramadol 50 mg PO Q6H PRN 01/06/22 01/06/22 History Allergies Allergy/AdvReac Type Severity Reaction Status Date / Time codeine Allergy Unknown Verified 01/06/22 20:05 Vital Signs Vital Signs - 24 hr 01/06/22 19:48 01/06/22 20:25 01/06/22 21:15 Temperature 98.4 F Pulse Rate 91 90 90 Respiratory Rate 16 22 H 22 H Blood Pressure 129/61 Pulse Oximetry 98 98 Exam Narrative: Laying in a stretcher BiPAP on Const: General: comfortable, no acute distress, well developed and patient obtunded Nutritional Appearance: average body habitus Orientation/consciousness: oriented to person HENMT: Head: normal to inspection, normocephalic and atraumatic Ears: hearing grossly normal bilaterally General nose exam: Other nasal findings present (BiPAP mask on) Face and sinus: normal facial exam Eyes: General: appearance normal, both eyes and all related structures Alignment and Position: alignment normal Sclera: sclerae normal Pupils: Equal, round and reactive pupils present EOM: EOMs intact bilaterally Neck: Neck: normal visual inspection, full ROM, no lymphadenopathy, supple and no JVD Thyroid: thyroid normal Lymphatic: no lymphadenopathy noted Resp: Effort & Inspection: normal respiratory effort and able to speak in complete sentences Auscultation: clear to auscultation bilaterally, crackles, rales
[2022-01-06 21:43] LABS: Troponin I < 0.012 ng/mL (0.000-0.034)
[2022-01-06 22:09] LABS: Add Urine Microscopic? YES; Appearance Urine Clear (Clear); Bilirubin Urine Negative (Negative); Blood Urine Negative (Negative); Color Urine Amber (Yellow); Glucose Urine UA Negative (Negative); Ketones Urine Negative (Negative); Leukocyte Esterase Ur Negative LEU/UL (Negative); Mucus Urine Rare /lpf; Nitrate Urine Negative (Negative); Protein Urine Negative (Negative); RBC Urine 0-2 /hpf (0-2); Specific Grav Ur 1.023 (1.001-1.035); Urobilinogen Urine Negative mg/dL (<2.0); WBC Urine 0-3 /hpf
[2022-01-06 22:41] LABS: NT Pro B Type Natriuretic Pept 1490 pg/mL (5-100)
--- NOTE | 2022-01-06 23:02 | ADMGEN ---
This patient, Brenda Rocha, was admitted to IMU Room 213-01 at 2255 on 01/06/22. Patient/family oriented to hospital policies and general routines including ID bracelet, bed and alarms, visiting hours, pain management, procedures, bathroom and other care routines, personal items, smoking policy, room service/diet, and visiting hours. Information on how to activate the Rapid Response Team has been discussed. Patient/Family are encouraged to report perceived risks to care and to ask questions if they do not understand what they are told or what they should do.
--- NOTE | 2022-01-06 23:20 | PC.NURSE ---
[place] [facility] [facility] called for med schedules.
[2022-01-07] VITALS (19 sets, daily range): BP systolic 105–123; BP diastolic 60–69; PULSE 72–108; RESP 18–26; TEMP 35.3–36.5; O2SAT 85–99
[2022-01-07] MEDS: IPRATROPIUM BR 0.02% INH SOLN 0.5 MG/2.5 ML VIAL INHALATION ×2 (02:24→07:52)
[2022-01-07] MEDS: ALBUTEROL SULFATE NEB 2.5 MG/0.5 ML INH 5 MG INHALATION ×2 (02:24→07:52)
[2022-01-07] MEDS: NALOXONE HCL 0.4 MG/ML VIAL IV PUSH (04:10)
[2022-01-07 04:13] LABS: Alveolar/Arterial O2 Gradient 115.4 mmHg; Base Excess ABG 5.6 mEq/l (+/-2.0); Carboxyhemoglobin 0.3 % THb (0-2.0); Fractional Inspired Oxygen 60 %; HCO3 ABG 39.6 mEq/l (22.0-26.0); Methemoglobin ABG 0.2 %THb (0-1.5); Oxygen Content ABG 14.5 %vol (16.0-22.0); Oxygen Saturation ABG 97.4 % (95.0-100.0); Oxyhemoglobin 97.1 % THb (90.0-100.0); PO2 FiO2 Ratio Arterial Blood 2.45 %; Reduced Hemoglobin 2.4 %THb (0-5.0); Total Hemoglobin 10.4 g/dL (12.0-18.0)
[2022-01-07 04:13] LABS: Glucose Point of Care 136 mg/dl (65-105)
[2022-01-07 04:15] LABS: pH ABG 7.038 (7.350-7.450)
[2022-01-07 04:16] LABS: Device NON-INVASIVE VENT; Modified Allen's Test Pass; PCO2 ABG 150.4 mmHg (35.0-45.0); Site Drawn RIGHT RADIAL
[2022-01-07] MEDS: NALOXONE HCL 0.4 MG/ML VIAL (04:17)
[2022-01-07 04:18] LABS: Non-Invasive Expiratory Pressure 8 CMH2O; Non-Invasive Inspiratory Pressure 18 CMH2O; Non-Invasive Vent Rate 22 /MIN
--- NOTE | 2022-01-07 04:36 | PC.NURSE ---
Spoke with son Aaron Hernandez and made aware of patient's current condition. Pt is currently unresponsive with an extremely elevated CO2 of 150. It would not be unreasonable to intubated due to current condition and ABG, but pt is a DNR. Explained to son that she has DNR paperwork from the senior care and when she was admitted she shook head no while on bipap when asked if she wanted to be intubated on a ventilator or have compressions or medications to restart her heart. Asked if son wants to proceed with intubation or if he wants to keep the DNR in place. Son states that his mother has had a hard time this last ten years and he wants to respect her wishes. Explained we will recheck ABG in an hour and if they are not improved I would call him to see her. Sitter placed in room with increased bipap settings due to patients obtunded state.
[2022-01-07 05:48] LABS: Alveolar/Arterial O2 Gradient 139.4 mmHg; Base Excess ABG 5.8 mEq/l (+/-2.0); Carboxyhemoglobin 0.6 % THb (0-2.0); Fractional Inspired Oxygen 45 %; HCO3 ABG 37.1 mEq/l (22.0-26.0); Oxygen Content ABG 13.1 %vol (16.0-22.0); PO2 ABG 61.3 mmHg (80.0-100.0); PO2 FiO2 Ratio Arterial Blood 1.36 %; Reduced Hemoglobin 11.6 %THb (0-5.0); Total Hemoglobin 10.6 g/dL (12.0-18.0)
[2022-01-07 05:49] LABS: PCO2 ABG 105.6 mmHg (35.0-45.0); pH ABG 7.163 (7.350-7.450)
[2022-01-07 05:51] LABS: Oxygen Saturation ABG 82.4 % (95.0-100.0)
[2022-01-07 05:52] LABS: Device NON-INVASIVE VENT; Modified Allen's Test Pass; Oxyhemoglobin 87.8 % THb (90.0-100.0); Site Drawn RIGHT RADIAL
[2022-01-07 05:53] LABS: Non-Invasive Expiratory Pressure 8 CMH2O; Non-Invasive Inspiratory Pressure 18 CMH2O; Non-Invasive Vent Rate 24 /MIN
[2022-01-07] MEDS: ONDANSETRON INJ 4 MG/2 ML VIAL IV PUSH (10:51)
[2022-01-07 10:53] LABS: Alveolar/Arterial O2 Gradient 143.3 mmHg; Base Excess ABG 10.1 mEq/l (+/-2.0); Fractional Inspired Oxygen 50 %; HCO3 ABG 42.2 mEq/l (22.0-26.0); Oxygen Saturation ABG 89.5 % (95.0-100.0); Oxyhemoglobin 92.7 % THb (90.0-100.0); PO2 ABG 76.3 mmHg (80.0-100.0); PO2 FiO2 Ratio Arterial Blood 1.53 %; Total Hemoglobin 10.7 g/dL (12.0-18.0)
[2022-01-07 10:54] LABS: pH ABG 7.158 (7.350-7.450)
[2022-01-07 10:55] LABS: Device NON-INVASIVE VENT; Modified Allen's Test Pass; PCO2 ABG 121.7 mmHg (35.0-45.0); Site Drawn RIGHT RADIAL
[2022-01-07 10:56] LABS: Non-Invasive Expiratory Pressure 8 CMH2O; Non-Invasive Inspiratory Pressure 18 CMH2O; Non-Invasive Vent Rate 24 /MIN
[2022-01-07 11:11] LABS: Hematocrit 36.1 % (37.0-47.0); Hemoglobin 9.4 g/dL (12.0-15.0); Mean Corpuscular Hemoglobin 26.8 pg (26-34); Mean Corpuscular Volume 102.8 fl (80-100); Mean Platelet Volume 8.5 fl (7.4-10.4); Platelet Count Result 514 k/mm3 (150-375); Red Blood Count 3.51 M/mm3 (4.2-5.4); Red Cell Distribution Width 19.2 % (11.5-14.5); White Blood Count 11.5 K/mm3 (4.5-10.0)
[2022-01-07 11:15] LABS: Anion Gap 2 mmol/L (8-16); Blood Urea Nitrogen 30 mg/dL (7-17); Calcium 7.8 mg/dL (8.4-10.2); Carbon Dioxide 36 mmol/L (22-30); Chloride 102 mmol/L (98-107); Estimated CRCL calculation 39 ml/min; Estimated Glomerular Filt Rate 43; Glucose 100 mg/dL (65-110); Lactic Acid Reflex 0.7 mmol/L (0.7-2.0); Potassium 5.4 mmol/L (3.4-5.0); Sodium 140 mmol/L (137-145)
[2022-01-07 11:18] LABS: D Dimer 3.68 ug/mL (<0.48)
[2022-01-07] MEDS: SCOPOLAMINE 1.5 MG PATCH TRANSDERM (11:56)
[2022-01-07] MEDS: FUROSEMIDE INJ 40 MG/4 ML VIAL IV PUSH (11:58)
[2022-01-07] MEDS: MORPHINE SULFATE (*CRX) 2 MG/ML INJ IV PUSH (12:08)
--- NOTE | 2022-01-07 15:00 | PM.IMPN ---
Progress Note: A&P Assessment and Plan (1) Acute respiratory failure with hypoxia and hypercapnia: Code(s): J96.01 - Acute respiratory failure with hypoxia; J96.02 - Acute respiratory failure with hypercapnia Status: Acute Assessment and Plan: Currently on BiPAP Continue to monitor Supportive care 01/07/2022 interval history: 81-year-old female presented with shortness of breath ABG showed pH 7.038, pCO2 150, pO2 147 on BIPAP, patient continues on BiPAP and struggle to breathe pCo2 remain high and hypercapnia, patient's son is present in room, discussed with the patient patient does not wish to continue and BiPAP and and does not want to be ventilated, would like to be placed under comfort care, patient's son also agrees as he has her POA, at the request patient BiPAP was removed and patient placed on high-flow oxygen nasal cannula, start the patient on morphine 2 mg every 4 hours as needed, Ativan 1 mg every 4 hours as needed and scopolamine, will continue to monitor keep the patient comfortable. may consult hospice for further recommendation. (2) Lung infiltrate: Code(s): R91.8 - Other nonspecific abnormal finding of lung field Status: Acute Assessment and Plan: Patient started on cefepime and vanco Cultures in progress (3) Altered mental status: Code(s): R41.82 - Altered mental status, unspecified Status: Acute Assessment and Plan: Likely secondary to respiratory failure Supportive care (4) Status post orthopedic surgery, follow-up exam: Code(s): Z09 - Encounter for follow-up examination after completed treatment for conditions other than malignant neoplasm Status: Acute Assessment and Plan: Patient was undergoing rehabilitation Continue postop care Subjective Date/time seen: 01/07/22 15:00 01/07/2022 interval history: 81-year-old female presented with shortness of breath ABG showed pH 7.038, pCO2 150, pO2 147 on BIPAP, patient continues on BiPAP and struggle to breathe pCo2 remain high and hypercapnia, patient's son is present in room, discussed with the patient patient does not wish to continue and BiPAP and and does not want to be ventilated, would like to be placed under comfort care, patient's son also agrees as he has her POA, at the request patient BiPAP was removed and patient placed on high-flow oxygen nasal cannula, start the patient on morphine 2 mg every 4 hours as needed, Ativan 1 mg every 4 hours as needed and scopolamine, will continue to monitor keep the patient comfortable. may consult hospice for further recommendation. Review of Systems Review of Systems: ROS unobtainable: Yes unobtainable due to medical condition (Respiratory failure on BiPAP.) Exam Narrative: Patient is comfortable, NAD HEENT: eyes are clear and none icteric LUNGS: bilateral poor air entry with rales and rhonchi HEART: RR S1S2 ABD: BS+, Soft and nontender Lower extremities: no edema SKIN: nonjaundiced Neuro: grossly intact. Objective Data Vital Signs Vital Signs: Vital Signs - 24 hr 01/06/22 19:48 01/06/22 20:25 01/06/22 21:15 Temperature 98.4 F Pulse Rate 91 90 90 Respiratory Rate 16 22 H 22 H Blood Pressure 129/61 Pulse Oximetry 98 98 01/06/22 21:56 01/06/22 22:40 01/06/22 23:07 Temperature Pulse Rate 87 88 94 Respiratory Rate 20 22 H Blood Pressure 111/64 98/60 L Pulse Oximetry 96 98 01/06/22 23:09 01/07/22 00:00 01/07/22 00:56 Temperature 97.3 F L Pulse Rate 86 81 Respiratory Rate 22 H 22 H Blood Pressure 118/59 L Pulse Oximetry 96 97 01/07/22 02:00 01/07/22 02:24 01/07/22 02:33 Temperature Pulse Rate 78 76 82 Respiratory Rate 22 H 22 H Blood Pressure Pulse Oximetry 99 01/07/22 04:00 01/07/22 04:40 01/07/22 06:00 Temperature 97.7 F Pulse Rate 79 96 Respiratory Rate 23 H 22 H Blood Pressure 105/69 Pulse Oximetry 94 95 01/07/22 06:42 01/07/22 07:52 01/07/22 07:
--- NOTE | 2022-01-07 17:07 | PC.NURSE ---
pt transferred into room 252 via bed, son and daughter in law at bedside, oriented to new room and environment, reviewed plan of care
--- NOTE | 2022-01-07 18:30 | PC.NURSE ---
son wishes to have an ABG drawn in the morning prior to speaking with hospice so he will have that data before making his decision, order place per Dr Smith
--- NOTE | 2022-01-08 04:51 | PC.NURSE ---
0330 SON CALLED TO GET UPDATE ON PT, INFORMED HIM THAT IV WAS REDDENED AND SWOLLEN AND HAD TO BE DC'D. SON STATES NOT TO RESTICK PT UNTIL ABG RESULTS COME BACK THIS AM
[2022-01-08 05:44] LABS: Hematocrit 39.8 % (37.0-47.0); Mean Corpuscular HGB Conc 25.1 g/dl (32-36); Mean Corpuscular Hemoglobin 27.5 pg (26-34); Mean Corpuscular Volume 109.3 fl (80-100); Mean Platelet Volume 8.7 fl (7.4-10.4); Platelet Count Result 481 k/mm3 (150-375); Red Blood Count 3.64 M/mm3 (4.2-5.4); Red Cell Distribution Width 18.9 % (11.5-14.5); White Blood Count 15.4 K/mm3 (4.5-10.0)
[2022-01-08 05:53] LABS: Anion Gap 3 mmol/L (8-16); Blood Urea Nitrogen 40 mg/dL (7-17); Calcium 7.9 mg/dL (8.4-10.2); Carbon Dioxide 32 mmol/L (22-30); Chloride 102 mmol/L (98-107); Estimated CRCL calculation 30 ml/min; Estimated Glomerular Filt Rate 31; Glucose 143 mg/dL (65-110); Magnesium 2.5 mg/dL (1.6-2.3); Potassium 5.4 mmol/L (3.4-5.0); Sodium 137 mmol/L (137-145)
[2022-01-08] MEDS: MORPHINE SULFATE ORAL CONC SOL (*CRX) 10 MG/0.5 ML SYRINGE 5 MG PO ×2 (06:25→12:37)
[2022-01-08 08:00] VITALS: PULSE 88; O2SAT 92
[2022-01-08 10:19] LABS: Alveolar/Arterial O2 Gradient 491.5 mmHg; Base Excess ABG 3.2 mEq/l (+/-2.0); Fractional Inspired Oxygen 100 %; HCO3 ABG 38.7 mEq/l (22.0-26.0); Oxygen Content ABG 11.8 %vol (16.0-22.0); PO2 FiO2 Ratio Arterial Blood 0.49 %
[2022-01-08 10:23] LABS: pH ABG 6.968 (7.350-7.450)
[2022-01-08 10:24] LABS: PO2 ABG 48.5 mmHg (80.0-100.0)
[2022-01-08 10:25] LABS: Oxygen Saturation ABG 56.7 % (95.0-100.0); Oxyhemoglobin 76.5 % THb (90.0-100.0); Site Drawn RIGHT RADIAL
[2022-01-08 10:26] LABS: Device HIGH FLOW NASAL CANN; Modified Allen's Test Pass
[2022-01-08] MEDS: WATER FOR IRRIGATION, STERILE 1,000 ML BOTTLE 1000 ML (11:38)
[2022-01-08] MEDS: LORazepam (*CRX) 2 MG/ML 30 ML ORAL CONCENTRATE 1 MG SUBLINGUAL (13:07)
--- NOTE | 2022-01-08 13:52 | PM.DS ---
DS: Admitting Diagnosis Discharge Date 01/08/2022 Admitting Diagnosis shortness of breath DS: Discharge Diagnosis Discharge Diagnosis (1) Acute respiratory failure with hypoxia and hypercapnia: Code(s): J96.01 - Acute respiratory failure with hypoxia; J96.02 - Acute respiratory failure with hypercapnia Status: Acute Assessment and Plan: Currently on BiPAP Continue to monitor Supportive care 01/07/2022 interval history: 81-year-old female presented with shortness of breath ABG showed pH 7.038, pCO2 150, pO2 147 on BIPAP, patient continues on BiPAP and struggle to breathe pCo2 remain high and hypercapnia, patient's son is present in room, discussed with the patient patient does not wish to continue and BiPAP and and does not want to be ventilated, would like to be placed under comfort care, patient's son also agrees as he has her POA, at the request patient BiPAP was removed and patient placed on high-flow oxygen nasal cannula, start the patient on morphine 2 mg every 4 hours as needed, Ativan 1 mg every 4 hours as needed and scopolamine, will continue to monitor keep the patient comfortable. may consult hospice for further recommendation. (2) Lung infiltrate: Code(s): R91.8 - Other nonspecific abnormal finding of lung field Status: Acute Assessment and Plan: Patient started on cefepime and vanco Cultures in progress (3) Altered mental status: Code(s): R41.82 - Altered mental status, unspecified Status: Acute Assessment and Plan: Likely secondary to respiratory failure Supportive care (4) Status post orthopedic surgery, follow-up exam: Code(s): Z09 - Encounter for follow-up examination after completed treatment for conditions other than malignant neoplasm Status: Acute Assessment and Plan: Patient was undergoing rehabilitation Continue postop care DS: Summary Hospital Course Reason for hospitalization: Chief Complaint: Shortness of breath. Narrative: This is a 81-year-old female with past medical history significant for COPD/emphysema, tobacco dependence, congestive heart failure, recent left ankle surgery patient was rehabilitation facility she was brought to the emergency room due to worsening shortness of breath. At the time of my visit patient was on BiPAP on obtunded most of the history has been obtained upon reviewing medical records and emergency room doctor. Patient with severe respiratory distress upon arrival to emergency room altered mental status placed on BiPAP initial ABG showed a pCO2 of 93 with a pH of 7.2 PO2 of 78. Patient has been on anticoagulation with Xarelto. A chest x-ray showed infiltrate bilateral and diffuse. Patient tested negative for influenza a and B and COVID. Patient is been admitted for further evaluation, management and treatment. Hospital Course: 01/07/2022 interval history: 81-year-old female presented with shortness of breath ABG showed pH 7.038, pCO2 150, pO2 147 on BIPAP, patient continues on BiPAP and struggle to breathe pCo2 remain high and hypercapnia, patient's son is present in room, discussed with the patient patient does not wish to continue BiPAP and does not want to be on ventilator , would like to be placed under comfort care, patient's son also agrees as he has her POA, at the request patient BiPAP was removed and patient placed on high-flow oxygen nasal cannula, start the patient on morphine 2 mg every 4 hours as needed, Ativan 1 mg every 4 hours as needed and scopolamine, will continue to monitor keep the patient comfortable. may consult hospice for further recommendation. patient clinical symptoms are remains stable will discharge the patient will be admitted under hospice care. Status at Discharge Functional status at discharge: bed bound Overall status at discharge: patient is back to baseline Time Spent with Patient Time attestation: Total time spent providing and/or coordinating discharge services:
== END 2022-01-08 14:25 | disposition hospice, inpatient (51) | DRG 189 ==
LOC: ANHED 21:53 → ANHIMU 22:23 → ANH2MED 01-08 13:51 → ANHIMU 01-09 14:15
PROVIDERS: Admitting Provider Internal Medicine; Emergency Provider Emergency Medicine; Visit Provider Family Medicine
DX: J96.01 Acute respiratory failure with hypoxia (principal); J96.02 Acute respiratory failure with hypercapnia; R91.8 Other nonspecific abnormal finding of lung field; R41.82 Altered mental status, unspecified; I50.9 Heart failure, unspecified; J43.9 Emphysema, unspecified; F17.200 Nicotine dependence, unspecified, uncomplicated; Z51.5 Encounter for palliative care; Z20.822 Contact with and (suspected) exposure to COVID-19; Z28.310 Unvaccinated for COVID-19; Z98.890 Other specified postprocedural states; Z79.01 Long term (current) use of anticoagulants; Z79.899 Other long term (current) drug therapy
CPT/HCPCS: 36415; 36600; 51701; 71045; 74018; 80048; 80053; 81001; 82375; 82805; 82948; 83050; 83605; 83735; 83880; 84484; 85025; 85027; 85380; 85610; 85730; 86140; 87040; 87502; 93005; 93306; 94002; 94640; 96365; 99285; A9270; C9803; J0692; J1940; J2270; J2310; J2405; J3370; J7030; U0003; U0005

== ENCOUNTER 2022-01-08 13:15 | HOS | payer OTHER, MEDICARE, SELFPAY ==
[2022-01-08 14:50] VITALS: BP 72/35; PULSE 83; RESP 24; TEMP 36.1; O2SAT 68
[2022-01-08 15:26] VITALS: O2SAT 62
[2022-01-08] MEDS: MORPHINE SULFATE INJ (*CRX) 50 MG in SODIUM CHLORIDE 0.9% IV 95 ML IV CONT (15:32)
--- NOTE | 2022-01-08 16:23 | PM.IMHP ---
H&P: HPI History of Present Illness Date/Time: 01/08/22 16:23 Chief Complaint: Uncontrolled dyspnea Narrative: 3-6 months ago patient was in snf rehab after surgery for her ankle she was alert oriented person place and time and able to make needs known with no respiratory cardiac issues. She was continent of bowel and bladder. She required minimal assist with ADLs. PPS was 50. Patient began having shortness of breath with desaturation was transported to the emergency department due to shortness of breath. She was placed on BiPAP. Found to have bilateral infiltrates. She declined against treatment. She was placed on a nasal cannula oxygen and comfort measures were implemented. She became unresponsive. She was tachypneic and struggling to breathe on high-flow oxygen at 15 L by nasal cannula. She had a Acosta catheter and was incontinent of stool. She has some mottling noted in her hands and feet. Oxygen saturation was dropping 60s during assessment for admission. In compliance with the patient's expressed wishes an with consent of the family she was admitted to inpatient hospice service for palliative care. Her PPS score at the time was 10. 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 Family History Family History Other Family history unknown Social History Social History (Updated 01/09/22 @ 17:18 by De Woody MD) Social History: Admitted to [facility] on 08/30/21. Quit smoking about 2006 after several years. . DNR status. Aaron Hernandez, son, listed as Emergency Contact . Dr Salmno listed as the PCP. Smoking status: Former smoker Alcohol intake: unknown Substance use: unknown Substance use type: unknown Living arrangements: residential Occupation/Education: retired Gender identity (if verbalized by the patient): Female Spiritual care concerns: No Meds Home Medications and Allergies Home Medications Medication Instructions Recorded Confirmed Type Biotene Dry Mouth Oral Rinse 15 ml MUCOUS MEMBRANE QID 11/15/21 01/08/22 History Fleet Enema 1 applic DAILY PRN 11/15/21 01/08/22 History Myrbetriq 25 mg PO DAILY 11/15/21 01/08/22 History acetaminophen 500 mg PO Q8H PRN 11/15/21 01/08/22 History amlodipine 5 mg PO DAILY 11/15/21 01/08/22 History atorvastatin [Lipitor] 10 mg PO HS 11/15/21 01/08/22 History bisacodyl 10 mg RECTAL DAILY PRN 11/15/21 01/08/22 History calcium carbonate-vitamin D3 1 tablet PO DAILY 11/15/21 01/08/22 History cholecalciferol (vitamin D3) 5,000 unit PO DAILY 11/15/21 01/08/22 History levothyroxine 150 mcg PO DAILY 11/15/21 01/08/22 History magnesium hydroxide [Milk of 30 ml PO HS PRN 11/15/21 01/08/22 History Magnesia] metoprolol succinate 50 mg PO DAILY 11/15/21 01/08/22 History polyethylene glycol 17 g PO DAILY 11/15/21 01/08/22 History tamsulosin [Flomax] 0.4 mg PO DAILY 11/15/21 01/08/22 History cyanocobalamin (vitamin B-12) 1,000 mcg PO QAM
[2022-01-08] MEDS: LORazepam INJ (*CRX) 2 MG/ML VIAL 1 MG IV PUSH (18:36)
[2022-01-08 20:00] VITALS: BP 50/36; PULSE 60; RESP 12; TEMP 36.2; O2SAT 90; O2SAT 93
[2022-01-08 23:04] VITALS: BMI 29.7
--- NOTE | 2022-01-08 23:08 | PC.NURSE ---
2226 called to room by family, patient has no pulse, bp, respirations or corneal reflex. pronounced at 2226 as time of .
--- NOTE | 2022-01-08 23:09 | PC.NURSE ---
3230 nursing network control operators supervisor and charge nurse informed of patient
--- NOTE | 2022-01-08 23:30 | PC.NURSE ---
3212 body to jamie per cart
--- NOTE | 2022-01-09 17:19 | P.DN_ITS ---
Discharge Summary Date and Time Date of : 01/08/22 Time of : 22:26 Provider Pronounced By: Genesis Marc Probable Cause of Probable Cause of : Acute on chronic respiratory failure with hypoxia and hypercapnia due to pneumonia with underlying COPD Summary Hospital Course: Admitted inpatient hospice service for uncontrolled dyspnea. Medications titrated to comfort. Patient peacefully. Additional Data Confirmation of as documented by pronouncing clinician: Pupillary Reflex, Palpable Pulses, Response to Stimuli, Heart Tones and Breath Sounds Name of Provider Notified: De Woody Time Provider Notified: 23:00 Provider Requests Autopsy: No Family Requests Autopsy: No Small Stock Facer Notified: Yes Date [facility] Notified of : 01/08/22 Time [facility] Notified of : 22:58
== END 2022-01-08 22:26 | disposition expired | DRG 951 ==
PROVIDERS: Admitting Provider Internal Medicine; PCP Family Medicine; Visit Provider Internal Medicine
DX: Z51.5 Encounter for palliative care (principal); J96.21 Acute and chronic respiratory failure with hypoxia; J96.22 Acute and chronic respiratory failure with hypercapnia; J18.9 Pneumonia, unspecified organism; Z87.891 Personal history of nicotine dependence; E78.5 Hyperlipidemia, unspecified; Z86.16 Personal history of COVID-19; E03.9 Hypothyroidism, unspecified; I48.0 Paroxysmal atrial fibrillation; K21.9 Gastro-esophageal reflux disease without esophagitis; J43.9 Emphysema, unspecified; I10 Essential (primary) hypertension; Z87.440 Personal history of urinary (tract) infections; I69.998 Other sequelae following unspecified cerebrovascular disease; Z85.3 Personal history of malignant neoplasm of breast; Z79.899 Other long term (current) drug therapy
CPT/HCPCS: A9270; J2060; J2270